=== PATIENT | female | born 1950 | race Caucasian/White ===

== ENCOUNTER 2018-12-04 14:07 | Inpatient (IN) ==
--- NOTE | 2018-12-04 14:53 | Emergency Department Note ---
Fall HPI - General Chief Complaint: Fall Stated Complaint: fall Time Seen by Provider: 12/04/18 14:27 Source: patient, family Mode of arrival: ambulatory Limitations: physical limitation - History of Present Illness HPI Narrative: 68-year-old female in ED via EMS. Patient had taken her dog outside, when the dog pulled her off the porch. Patient dropped 2 steps and fell to the ground, she does not know how she landed. Patient felt extreme pain in her left knee and 911 was called by the granddaughter. Patient states she can feel her left leg and can move her left foot and toes. Patient does wear compression stockings. Patient has health history of chronic back pain/knee pain she takes morphine, [place], methocarbamol for this. Patient also has congestive heart failure and is on Lasix and potassium. Patient has A. fib and treated with diltiazem and Xarellto. Patient also takes lisinopril. Patient did see her primary care today with concerns of constipation she currently takes 2 laxatives today and Metamucil was added to her regimen. 2 weeks ago patient was placed on nebulizer treatment twice a day along with steroid inhaler twice a day. Patient states this has improved her breathing and she has not used her albuterol inhaler since. Complaint: fall Onset (ago): hour(s) (1) Fall From: standing, down stairs (#) (2) Fall Witnessed: no Place Fall Occurred: home Loss of Consciousness: none Prolonged Down Time?: no Symptoms Prior to Fall: none Context: tripped/slipped Location of injury: other (left knee) Location of injury - extremities: Left: knee Severity: severe Severity scale (1-10): 10 Quality: dull, stabbing, aching Associated symptoms (after fall): Reports: denies - Related Data Home Medications Medication Instructions Recorded Confirmed Auto-Titrating CPAP MISCELLANE .COMPLEX 04/18/15 12/04/18 aspirin 81 mg tablet,delayed 81 mg PO QDAY tab 04/18/15 12/04/18 release hydrocodone 10 mg-acetaminophen See Dose Instructions PO .Q4-6H 04/18/15 12/04/18 325 mg tablet PRN tab morphine ER 100 mg 100 mg PO .COMPLEX cap 04/18/15 12/04/18 capsule,extended release pellets multivitamin tablet 1 tab PO .COMPLEX tab 04/18/15 12/04/18 potassium chloride ER 20 mEq 20 meq PO .COMPLEX tab 04/18/15 12/04/18 tablet,extended release rivaroxaban 20 mg tablet 20 mg PO .COMPLEX tab 04/18/15 12/04/18 Methocarbamol [Robaxin] 750 mg PO HSP 12/04/18 12/04/18 Previous Rx's Medication Instructions Recorded CUSTOM FIT COMPRESSION STOCKINGS #1 each 10/30/16 FULL SIZE EGG CRATE MATTRESS #1 each 10/30/16 diltiazem 60 mg tablet 60 mg PO QID 90 Days #360 tab 11/05/16 Foam Block #1 each 12/13/16 disposable gloves See Dose Instructions .ROUTE 07/28/17 .MEDSUPPLY #100 each lisinopril 2.5 mg tablet 2.5 mg PO BID #180 tab 03/23/18 furosemide 40 mg tablet 40 mg PO BID #180 tab 06/23/18 albuterol sulfate HFA 90 See Rx Instructions .ROUTE 10/23/18 mcg/actuation aerosol inhaler .COMPLEX #54 gram Spacer for ventolin inhaler #1 ea 11/02/18 fluticasone propionate 110 4 puff INHALATION BID #36 g 11/02/18 mcg/actuation HFA aerosol inhaler nebulizer accessories kit See Dose Instructions .ROUTE 11/03/18 .MEDSUPPLY #1 each nebulizers See Dose Instructions .ROUTE 11/03/18 .MEDSUPPLY #1 each ipratropium-albuterol 0.5 mg-3 3 ml INHALATION QID #180 ml 11/13/18 mg(2.5 mg base)/3 mL nebulization soln Allergies Allergy/AdvReac Type Severity Reaction Status Date / Time aspirin Allergy Unknown Unknown Verified 12/04/18 14:13 atenolol Allergy Unknown Unknown Verified 12/04/18 14:13 hydrochlorothiazide Allergy Unknown Dizziness Verified 12/04/18 14:13 ketorolac [From Toradol] Allergy Unknown Hives Verified 12/04/18 14:13 lorazepam Allergy Unknown Unknown Verified 12/04/18 14:13 NSAIDS (Non-Steroidal Allergy Unknown Unknown Verified 12/04/18 14:13 Anti-Inflamma propoxyphene Allergy Unknown Unknown Verified 12/04/18 14:13 Zolpidem [From Ambien] Allergy Unknown Unknown Verified 12/04/18 14:13 influenza virus vaccine, AdvReac Intermediate Other Verified 12/04/18 14:13 specific [Influenza Virus Vacc,Specific] ketorplac Allergy Unknown Unknown Uncoded 12/04/18 11:00 Review of Systems All systems ED: reviewed and negative except as stated. Fall PMH - Past Medical History [facility] Narrative: All Active Problems (Last Reviewed 11/02/18 @ 09:17 by Gypsy Restrepo DO) Asthma exacerbation (Acute) Viral syndrome (Acute) Valvular heart disease (Chronic) Chronic anticoagulation (Chronic) 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) Chronic low back pain (Chronic) History of tonsillectomy (Chronic) History of total splenectomy (Chronic) History of surgery (Chronic) History of laminectomy (Chronic) History of knee replacement procedure of right knee (Chronic) History of hysterectomy (Chronic) History of cholecystectomy (Chronic) History of cardiac catheterization (Chronic) History of back surgery (Chronic) Status post arthroscopic surgery of right knee (Chronic) History of appendectomy (Chronic) History of adenoidectomy (Chronic) Right bundle branch block (Chronic) Osteoarthrosis, localized, primary, involving lower leg (Chronic) Obstructive sleep apnea (Chronic 05/11/14) Obesity (Chronic) Non Hodgkin's lymphoma (Chronic) Myocardial infarction, old (Chronic) Malignant lymphoma (Chronic) Lymphedema (Chronic) Insomnia (Chronic) Hypertension, essential (Chronic) Hepatitis C, chronic (Chronic) Gout (Chronic) Gastroparesis (Chronic) Gastroesophageal reflux (Chronic) Edema (Chronic) Degenerative disc disease (Chronic) Coronary artery disease (Chronic) History of colonic polyps (Chronic) Chronic pain syndrome (Chronic) Atrial fibrillation (Chronic 01/24/14) Asthma (Chronic) Past Surgical History (Last Reviewed 09/14/18 @ 14:22 by Christiana Seaman PA-C) History of tonsillectomy (Chronic) History of total splenectomy (Chronic) History of surgery (Chronic) History of laminectomy (Chronic) History of knee replacement procedure of right knee (Chronic) History of cholecystectomy (Chronic) History of cardiac catheterization (Chronic) History of back surgery (Chronic) Status post arthroscopic surgery of right knee (Chronic) History of appendectomy (Chronic) History of adenoidectomy (Chronic) Family History (Last Reviewed 09/14/18 @ 14:22 by Christiana Seaman PA-C) Maternal Grandmother Coronary artery disease Hypertension Mother Coronary artery disease Pulmonary emphysema Family history of diabetes mellitus Family history of tuberculosis Sudden , Onset Age: 60 Tobacco abuse Mother Cardiac disease Medical history: Reports: asthma, atrial fibrillation, cancer (non-Hodgkin lymphoma), coronary artery disease (myocardial infarction 1999), GERD, hypertension, liver disease (epatitis C), osteoporosis, other (bstructive sleep apnea, chronic anticoagulation) - Social History smoking status: Never smoker Alcohol use: Reports: None Physical Exam Limitations: no limitations General appearance: alert, anxious, tearful Head: atraumatic, normocephalic, normal inspection Eye: Present: normal appearance, PERRL, EOMI. Absent: conjunctival injection ENT: normal oropharynx, mucous membranes moist, normal external ear exam Neck: Present: normal inspection. Absent: tenderness, lymphadenopathy Chest: Present: normal inspection, symmetric chest wall rise. Absent: tenderness Respiratory: Present: normal lung sounds bilaterally. Absent: respiratory distress, rales/crackles, wheezes Cardiovascular: Absent: systolic murmur, diastolic murmur Abdominal: Present: soft, hypoactive bowel sounds. Absent: distention, tenderness, guarding, rebound, rigidity Extremities: Present: pedal edema (Pt with conpression stockings on) Upper leg: Present: tenderness, swelling, ecchymosis (distal femur) Knee: Present: tenderness, other (unable to move knee with out excruciating pain). Absent: full ROM Gait: not tested/not observed Neurological: Present: alert, oriented X3 Psychiatric: Present: depressed, anxious, tearful Skin: Present: warm, dry, intact, normal color. Absent: cool, diaphoretic Course Vital Signs Temperature 97.3 F 12/04/18 14:08 Pulse Rate 89 12/04/18 14:08 Respiratory Rate 20 12/04/18 14:08 Blood Pressure 95/48 12/04/18 14:08 Pulse Oximetry (%) 90 12/04/18 14:08 Temperature 99.3 F H 12/04/18 21:54 Pulse Rate 97 H 12/04/18 21:54 Respiratory Rate 23 H 12/04/18 21:54 Blood Pressure 142/83 12/04/18 21:54 Pulse Oximetry (%) 93 12/04/18 21:54 Fall - [facility] Narrative Medical decision making narrative: Pt laying supine as position of comfort. This decreased her SPO2 88%, pt normally not on O2 at home. Consulted Dr. Vega who advised to hold Xarellto and he would do surgery tomorrow, requested hospitalist to admitting orders on patient. Patients last oral intake was at 1830 yesterday and last Xarellto was 1630 yesterday. admitted pt and surgery to occur at 1900 today. - Lab Data Result diagrams: 12/04/18 14:53 12/04/18 14:53 Lab Results 12/04/18 12/04/18 12/04/18 Range/Units 14:28 14:53 14:53 WBC 8.9 (4.5-11.0) K/mcL RBC 4.69 (4.00-5.20) M/mcL Hgb 14.3 (12.0-15.0) g/dL Hct 44.0 (36.0-48.0) % MCV 93.7 (80.0-100.0) fL MCH 30.5 (26.0-34.0) pg MCHC 32.5 (31.0-36.0) g/dL RDW 13.3 (11.5-14.5) % Plt Count 352 (140-440) K/mcL MPV 8.0 (7.4-10.4) fL Gran % 45.5 (38.0-78.0) % Lymph % (Auto) 35.6 (15.5-49.0) % [place] % (Auto) 15.4 H (1.0-12.0) % Eos % (Auto) 0.7 (0.0-7.0) % Baso % (Auto) 2.8 H (0.0-2.0) % Gran # 4.0 (1.8-8.0) K/mcL Lymph # (Auto) 3.2 (1.5-4.8) K/mcL [place] # (Auto) 1.4 H (0.1-0.9) K/mcL Eos # (Auto) 0.1 (0.0-0.7) K/mcL Baso # (Auto) 0.2 (0.0-0.3) K/mcL PT (11.9-14.5) sec INR (0.9-1.1) APTT (20-37) sec Sodium 136 (133-145) mmol/L Potassium 3.7 (3.3-5.1) mmol/L Chloride 91 L (96-108) mmol/L Carbon Dioxide 32 H (22-30) mmol/L Anion Gap 13.0 (8-16) BUN 6 L (8-23) mg/dl Creatinine 0.7 (0.6-1.1) mg/dl GFR Calculation 90 Glucose 111 H (70-105) mg/dL Calcium 9.1 (8.6-10.4) mg/dl Total Bilirubin 0.5 (0.0-1.0) mg/dL AST 32 (0-37) U/l ALT 18 (0-40) U/l Alkaline Phosphatase 86 (39-117) U/L NT-Pro-B Natriuret Pep 1483.0 H (0-125) pg/ml Total Protein 7.1 (5.9-8.4) gm/dL Albumin 4.0 (3.2-5.2) gm/dL Globulin 3.1 (2.2-3.7) gm/dL Albumin/Globulin Ratio 1.3 (1.0-2.3) 12/04/18 Range/Units 14:53 WBC (4.5-11.0) K/mcL RBC (4.00-5.20) M/mcL Hgb (12.0-15.0) g/dL Hct (36.0-48.0) % MCV (80.0-100.0) fL MCH (26.0-34.0) pg MCHC (31.0-36.0) g/dL RDW (11.5-14.5) % Plt Count (140-440) K/mcL MPV (7.4-10.4) fL Gran % (38.0-78.0) % Lymph % (Auto) (15.5-49.0) % [place] % (Auto) (1.0-12.0) % Eos % (Auto) (0.0-7.0) % Baso % (Auto) (0.0-2.0) % Gran # (1.8-8.0) K/mcL Lymph # (Auto) (1.5-4.8) K/mcL [place] # (Auto) (0.1-0.9) K/mcL Eos # (Auto) (0.0-0.7) K/mcL Baso # (Auto) (0.0-0.3) K/mcL PT 16.5 H (11.9-14.5) sec INR 1.3 H (0.9-1.1) APTT 35 (20-37) sec Sodium (133-145) mmol/L Potassium (3.3-5.1) mmol/L Chloride (96-108) mmol/L Carbon Dioxide (22-30) mmol/L Anion Gap (8-16) BUN (8-23) mg/dl Creatinine (0.6-1.1) mg/dl GFR Calculation Glucose (70-105) mg/dL Calcium (8.6-10.4) mg/dl Total Bilirubin (0.0-1.0) mg/dL AST (0-37) U/l ALT (0-40) U/l Alkaline Phosphatase (39-117) U/L NT-Pro-B Natriuret Pep (0-125) pg/ml Total Protein (5.9-8.4) gm/dL Albumin (3.2-5.2) gm/dL Globulin (2.2-3.7) gm/dL Albumin/Globulin Ratio (1.0-2.3) - Radiology Data Radiology results reviewed: Yes I reviewed the patient's radiology results. Left Knee XR: IMPRESSION: Severely comminuted and displaced oblique oriented fracture of the distal femoral diaphysis/metaphysis Disposition Pt seen by INTERNAL MEDICINE PHYSICIAN/PA only: No ([place]) Clinical Impression: Femur fracture, left Disposition: Xfer As Inpt ([facility]) Condition: Fair Time of Disposition: 22:04
[2018-12-04] MEDS: HYDROmorphone 2 MG/ML VIAL IV PRN ×4 (15:00→22:57)
[2018-12-04] MEDS ORDERED: HYDROmorphone 2 MG/ML VIAL IV SCH (15:15)
--- NOTE | 2018-12-04 15:17 | XRay Report ---
CLINICAL INFORMATION: pain after fall COMPARISON: None. FINDINGS: Severely comminuted, obliquely oriented fracture through the distal femoral diaphysis extending to the metaphysis is appreciated. The proximal fragment displaced one shaft width medially and anteriorly. Moderate soft tissue swelling noted. Moderate patellofemoral and tibiofemoral degenerative changes noted IMPRESSION: Severely comminuted and displaced oblique oriented fracture of the distal femoral diaphysis/metaphysis Interpreted and Authenticated by: Luis E Nayak 12/04/18
[2018-12-04 15:25] LABS: Basophils # (Auto) 0.2 K/mcL (0.0-0.3); Basophils % (Auto) 2.8 % (0.0-2.0); Eosinophils # (Auto) 0.1 K/mcL (0.0-0.7); Eosinophils % (Auto) 0.7 % (0.0-7.0); Granulocytes % (Auto) 45.5 % (38.0-78.0); Lymphocytes # (Auto) 3.2 K/mcL (1.5-4.8); Lymphocytes % (Auto) 35.6 % (15.5-49.0); Mean Cell Volume 93.7 fL (80.0-100.0); Mean Corpuscular HGB Conc 32.5 g/dL (31.0-36.0); Monocytes # (Auto) 1.4 K/mcL (0.1-0.9); Monocytes % (Auto) 15.4 % (1.0-12.0); Platelet Count 352 K/mcL (140-440); RBC 4.69 M/mcL (4.00-5.20); Red Cell Distribution Width 13.3 % (11.5-14.5)
--- NOTE | 2018-12-04 15:38 | XRay Report ---
CLINICAL INFORMATION: femur fracture COMPARISON: None. FINDINGS: The heart is moderately enlarged - increased from previous study. The mediastinum unremarkable. Pulmonary vessels are mildly distended but no definite edema. Right diaphragm is moderately elevated and small eventration left diaphragm are both stable. Mild atelectasis right base noted IMPRESSION: Mild CHF Moderate chronic elevation right diaphragm and mild chronic atelectasis in the overlying right lower lobe. Small eventration posterior left diaphragm - stable Interpreted and Authenticated by: Luis E Nayak 12/04/18
[2018-12-04 15:47] LABS: ALT/SGPT 18 U/l (0-40); Albumin/Globulin Ratio 1.3 (1.0-2.3); Alkaline Phosphatase 86 U/L (39-117); Blood Urea Nitrogen 6 mg/dl (8-23)
--- NOTE | 2018-12-04 16:00 | Emergency Department Note ---
Fall HPI - General Chief Complaint: Fall Stated Complaint: fall Time Seen by Provider: 12/04/18 14:27 Source: patient, family Mode of arrival: ambulatory - History of Present Illness Place Fall Occurred: home Context: tripped/slipped Associated symptoms (after fall): Reports: denies - Related Data Home Medications Medication Instructions Recorded Confirmed Auto-Titrating CPAP MISCELLANE .COMPLEX 04/18/15 12/04/18 aspirin 81 mg tablet,delayed 81 mg PO QDAY tab 04/18/15 12/04/18 release hydrocodone 10 mg-acetaminophen See Dose Instructions PO .Q4-6H 04/18/15 12/04/18 325 mg tablet PRN tab morphine ER 100 mg 100 mg PO .COMPLEX cap 04/18/15 12/04/18 capsule,extended release pellets multivitamin tablet 1 tab PO .COMPLEX tab 04/18/15 12/04/18 potassium chloride ER 20 mEq 20 meq PO .COMPLEX tab 04/18/15 12/04/18 tablet,extended release rivaroxaban 20 mg tablet 20 mg PO .COMPLEX tab 04/18/15 12/04/18 RX: Methocarbamol [Robaxin] 750 mg PO HSP 12/04/18 12/04/18 Previous Rx's Medication Instructions Recorded CUSTOM FIT COMPRESSION STOCKINGS #1 each 10/30/16 FULL SIZE EGG CRATE MATTRESS #1 each 10/30/16 diltiazem 60 mg tablet 60 mg PO QID 90 Days #360 tab 11/05/16 Foam Block #1 each 12/13/16 disposable gloves See Dose Instructions .ROUTE 07/28/17 .MEDSUPPLY #100 each lisinopril 2.5 mg tablet 2.5 mg PO BID #180 tab 03/23/18 furosemide 40 mg tablet 40 mg PO BID #180 tab 06/23/18 albuterol sulfate HFA 90 See Rx Instructions .ROUTE 10/23/18 mcg/actuation aerosol inhaler .COMPLEX #54 gram Spacer for ventolin inhaler #1 ea 11/02/18 fluticasone propionate 110 4 puff INHALATION BID #36 g 11/02/18 mcg/actuation HFA aerosol inhaler nebulizer accessories kit See Dose Instructions .ROUTE 11/03/18 .MEDSUPPLY #1 each nebulizers See Dose Instructions .ROUTE 11/03/18 .MEDSUPPLY #1 each ipratropium-albuterol 0.5 mg-3 3 ml INHALATION QID #180 ml 11/13/18 mg(2.5 mg base)/3 mL nebulization soln Allergies Allergy/AdvReac Type Severity Reaction Status Date / Time aspirin Allergy Unknown Unknown Verified 12/04/18 14:13 atenolol Allergy Unknown Unknown Verified 12/04/18 14:13 hydrochlorothiazide Allergy Unknown Dizziness Verified 12/04/18 14:13 ketorolac [From Toradol] Allergy Unknown Hives Verified 12/04/18 14:13 lorazepam Allergy Unknown Unknown Verified 12/04/18 14:13 NSAIDS (Non-Steroidal Allergy Unknown Unknown Verified 12/04/18 14:13 Anti-Inflamma propoxyphene Allergy Unknown Unknown Verified 12/04/18 14:13 Zolpidem [From Ambien] Allergy Unknown Unknown Verified 12/04/18 14:13 influenza virus vaccine, AdvReac Intermediate Other Verified 12/04/18 14:13 specific [Influenza Virus Vacc,Specific] ketorplac Allergy Unknown Unknown Uncoded 12/04/18 11:00 Fall PMH - Past Medical History Medical history: Reports: asthma, atrial fibrillation, cancer (non-Hodgkin lymphoma), coronary artery disease (myocardial infarction 1999), GERD, hypertension, liver disease (epatitis C), osteoporosis, other (bstructive sleep apnea, chronic anticoagulation) - Social History smoking status: Never smoker Alcohol use: Reports: None Physical Exam Limitations: physical limitation General appearance: alert, anxious, tearful Course Vital Signs Temperature 97.3 F 12/04/18 14:08 Pulse Rate 89 12/04/18 14:08 Respiratory Rate 20 12/04/18 14:08 Blood Pressure 95/48 12/04/18 14:08 Pulse Oximetry (%) 90 12/04/18 14:08 Temperature 97.1 F 12/08/18 03:35 Pulse Rate 96 H 12/08/18 03:35 Respiratory Rate 20 12/08/18 03:35 Blood Pressure 115/75 12/08/18 03:35 Pulse Oximetry (%) 96 12/08/18 03:35 Fall - Lab Data Result diagrams: 12/08/18 03:35 12/08/18 03:35 Lab Results 12/04/18 12/04/18 12/04/18 Range/Units 14:28 14:53 14:53 WBC 8.9 (4.5-11.0) K/mcL RBC 4.69 (4.00-5.20) M/mcL Hgb 14.3 (12.0-15.0) g/dL Hct 44.0 (36.0-48.0) % MCV 93.7 (80.0-100.0) fL MCH 30.5 (26.0-34.0) pg MCHC 32.5 (31.0-36.0) g/dL RDW 13.3 (11.5-14.5) % Plt Count 352 (140-440) K/mcL MPV 8.0 (7.4-10.4) fL Gran % 45.5 (38.0-78.0) % Lymph % (Auto) 35.6 (15.5-49.0) % [place] % (Auto) 15.4 H (1.0-12.0) % Eos % (Auto) 0.7 (0.0-7.0) % Baso % (Auto) 2.8 H (0.0-2.0) % Gran # 4.0 (1.8-8.0) K/mcL Lymph # (Auto) 3.2 (1.5-4.8) K/mcL [place] # (Auto) 1.4 H (0.1-0.9) K/mcL Eos # (Auto) 0.1 (0.0-0.7) K/mcL Baso # (Auto) 0.2 (0.0-0.3) K/mcL PT (11.9-14.5) sec INR (0.9-1.1) APTT (20-37) sec Sodium 136 (133-145) mmol/L Potassium 3.7 (3.3-5.1) mmol/L Chloride 91 L (96-108) mmol/L Carbon Dioxide 32 H (22-30) mmol/L Anion Gap 13.0 (8-16) BUN 6 L (8-23) mg/dl Creatinine 0.7 (0.6-1.1) mg/dl GFR Calculation 90 Glucose 111 H (70-105) mg/dL Calcium 9.1 (8.6-10.4) mg/dl Total Bilirubin 0.5 (0.0-1.0) mg/dL AST 32 (0-37) U/l ALT 18 (0-40) U/l Alkaline Phosphatase 86 (39-117) U/L NT-Pro-B Natriuret Pep 1483.0 H (0-125) pg/ml Total Protein 7.1 (5.9-8.4) gm/dL Albumin 4.0 (3.2-5.2) gm/dL Globulin 3.1 (2.2-3.7) gm/dL Albumin/Globulin Ratio 1.3 (1.0-2.3) 12/04/18 Range/Units 14:53 WBC (4.5-11.0) K/mcL RBC (4.00-5.20) M/mcL Hgb (12.0-15.0) g/dL Hct (36.0-48.0) % MCV (80.0-100.0) fL MCH (26.0-34.0) pg MCHC (31.0-36.0) g/dL RDW (11.5-14.5) % Plt Count (140-440) K/mcL MPV (7.4-10.4) fL Gran % (38.0-78.0) % Lymph % (Auto) (15.5-49.0) % [place] % (Auto) (1.0-12.0) % Eos % (Auto) (0.0-7.0) % Baso % (Auto) (0.0-2.0) % Gran # (1.8-8.0) K/mcL Lymph # (Auto) (1.5-4.8) K/mcL [place] # (Auto) (0.1-0.9) K/mcL Eos # (Auto) (0.0-0.7) K/mcL Baso # (Auto) (0.0-0.3) K/mcL PT 16.5 H (11.9-14.5) sec INR 1.3 H (0.9-1.1) APTT 35 (20-37) sec Sodium (133-145) mmol/L Potassium (3.3-5.1) mmol/L Chloride (96-108) mmol/L Carbon Dioxide (22-30) mmol/L Anion Gap (8-16) BUN (8-23) mg/dl Creatinine (0.6-1.1) mg/dl GFR Calculation Glucose (70-105) mg/dL Calcium (8.6-10.4) mg/dl Total Bilirubin (0.0-1.0) mg/dL AST (0-37) U/l ALT (0-40) U/l Alkaline Phosphatase (39-117) U/L NT-Pro-B Natriuret Pep (0-125) pg/ml Total Protein (5.9-8.4) gm/dL Albumin (3.2-5.2) gm/dL Globulin (2.2-3.7) gm/dL Albumin/Globulin Ratio (1.0-2.3) Disposition Pt seen by FOCUSED FACTORY MANAGER/PA only: No Clinical Impression: Femur fracture, left Disposition: Xfer As Inpt ([facility]) Condition: Fair
[2018-12-04] MEDS ORDERED: METHOCARBAMOL 1,000 MG/10 ML VIAL IV ONE (16:07)
[2018-12-04] MEDS ORDERED: fentaNYL 100 MCG/2 ML VIAL IV ONE ×2 (16:18→19:00)
--- NOTE | 2018-12-04 17:05 | Internal Med History&Physical ---
Medical - H&P: [facility] Patient information: Note initiated : 12/04/18 at 5:01 pm Service Date, if different from initiated Date: [] Patient: Jennie Smith a 68 y/o F admitted on for fall. Chief Complaint: [] History of present illness: Ms. Smith is a 68 year old F Who got tangled up in the dog leash tripped down several steps falling onto her left leg. She did not hit her head. She had immediate pain to the leg. Nitro was called and brought her into the ER. Patient has a significant medical history including morbid obesity CHF which appears to be diastolic per history COPD chronic pain hypertension obstructive sleep apnea. Past several months she has been dealing with respiratory issues including pneumonia followed up with the upper respiratory tract infection and that she has sinusitis she recently started on nebulizer which improved her respiratory symptoms and she has not needed her albuterol since then. She is overall been feeling improved and recovering from her recent respiratory illness. she does have a a residual cough which is improving and is dry at this point. She does have some shortness of breath at baseline. She has chronic lymphedema and uses Lasix. 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 She is at increased risk perioperatively but she understands this, including risk of . However, a nonsurgical approach would be quite debilitating and would be worse off her. Review of Systems: Pertinent positives as above. Denies headache/fever/chills/nausea/ vomiting/chest or abdominal pain/diarrhea. Remaining 10 point review of systems reviewed negative Medical - H&P: PM Medical history: Medical History (Last Reviewed 11/02/18 @ 09:17 by Gypsy Restrepo DO) Valvular heart disease (Chronic) History of congestive heart failure, appears to be diastolic per old notes and the fact that she is on diltiazem A fibrillation on diltiazem and Xarelto: Follows with Dr. Daley COPD/asthma on inhalers Chronic pain low back and knee GERD Hypertension History of hepatitis C for blood transfusion decades ago Morbid obesity with lymphedema History of non-Hodgkin's a former BRYAN on CPAP Past Surgical History (Last Reviewed 09/14/18 @ 14:22 by Chirstiana Seaman PA-C) History of tonsillectomy (Chronic) History of total splenectomy (Chronic) History of surgery (Chronic) History of laminectomy (Chronic) History of knee replacement procedure of right knee (Chronic) History of cholecystectomy (Chronic) History of cardiac catheterization (Chronic) History of back surgery (Chronic) Status post arthroscopic surgery of right knee (Chronic) History of appendectomy (Chronic) History of adenoidectomy (Chronic) Family History (Last Reviewed 09/14/18 @ 14:22 by Christiana Seaman PA-C) Maternal Grandmother Coronary artery disease Hypertension Mother Coronary artery disease Pulmonary emphysema Family history of diabetes mellitus Family history of tuberculosis Sudden , Onset Age: 60 Tobacco abuse Mother Cardiac disease Social History (Last Reviewed 12/04/18 @ 11:01 by Christine Day CMA) Denies smoking or history but was exposed to secondhand smoke for 35 years from her Denies alcohol use He is a walking stick sometimes Lives by herself Medical - H&P: Meds Home Medications Medication Instructions Recorded Confirmed Type Auto-Titrating CPAP MISCELLANE .COMPLEX 04/18/15 12/04/18 History aspirin 81 mg tablet,delayed 81 mg PO QDAY tab 04/18/15 12/04/18 History release hydrocodone 10 mg-acetaminophen See Dose Instructions PO .Q4-6H 04/18/15 0 12/04/18 History 325 mg tablet PRN tab morphine ER 100 mg 100 mg PO .COMPLEX cap 04/18/15 12/04/18 History capsule,extended release pellets multivitamin tablet 1 tab PO .COMPLEX tab 04/18/15 12/04/18 History potassium chloride ER 20 mEq 20 meq PO .COMPLEX tab 04/18/15 12/04/18 History tablet,extended release rivaroxaban 20 mg tablet 20 mg PO .COMPLEX tab 04/18/15 12/04/18 History CUSTOM FIT COMPRESSION STOCKINGS #1 each 10/30/16 12/04/18 Rx FULL SIZE EGG CRATE MATTRESS #1 each 10/30/16 12/04/18 Rx diltiazem 60 mg tablet 60 mg PO QID 90 Days #360 tab 11/05/16 12/04/18 Rx Foam Block #1 each 12/13/16 12/04/18 Rx disposable gloves See Dose Instructions .ROUTE 07/28/17 12/04/18 Rx .MEDSUPPLY #100 each lisinopril 2.5 mg tablet 2.5 mg PO BID #180 tab 03/23/18 12/04/18 Rx furosemide 40 mg tablet 40 mg PO BID #180 tab 06/23/18 12/04/18 Rx albuterol sulfate HFA 90 See Rx Instructions .ROUTE 10/23/18 12/04/18 Rx mcg/actuation aerosol inhaler .COMPLEX #54 gram Spacer for ventolin inhaler #1 ea 11/02/18 12/04/18 Rx fluticasone propionate 110 4 puff INHALATION BID #36 g 11/02/18 12/04/18 Rx mcg/actuation HFA aerosol inhaler nebulizer accessories kit See Dose Instructions .ROUTE 11/03/18 12/04/18 Rx .MEDSUPPLY #1 each nebulizers See Dose Instructions .ROUTE 11/03/18 12/04/18 Rx .MEDSUPPLY #1 each ipratropium-albuterol 0.5 mg-3 3 ml INHALATION QID #180 ml 11/13/18 12/04/18 Rx mg(2.5 mg base)/3 mL nebulization soln Methocarbamol [Robaxin] 750 mg PO HSP 12/04/18 12/04/18 History Allergies Allergy/AdvReac Type Severity Reaction Status Date / Time aspirin Allergy Unknown Unknown Verified 12/04/18 14:13 atenolol Allergy Unknown Unknown Verified 12/04/18 14:13 hydrochlorothiazide Allergy Unknown Dizziness Verified 12/04/18 14:13 ketorolac [From Toradol] Allergy Unknown Hives Verified 12/04/18 14:13 lorazepam Allergy Unknown Unknown Verified 12/04/18 14:13 NSAIDS (Non-Steroidal Allergy Unknown Unknown Verified 12/04/18 14:13 Anti-Inflamma propoxyphene Allergy Unknown Unknown Verified 12/04/18 14:13 Zolpidem [From Ambien] Allergy Unknown Unknown Verified 12/04/18 14:13 influenza virus vaccine, AdvReac Intermediate Other Verified 12/04/18 14:13 specific [Influenza Virus Vacc,Specific] ketorplac Allergy Unknown Unknown Uncoded 12/04/18 11:00 Medical - H&P: Exam - Constitutional Vitals: Temp Pulse Resp BP Pulse Ox 97.3 F 89 20 105/71 93 12/04/18 14:08 12/04/18 14:08 12/04/18 14:23 12/04/18 16:51 12/04/18 16:51 Exam: general: Alert, Awake, distressed some pain Eyes/N/T: EOMI, PEERL, Head/Neck: neck supple, normocephalic atraumatic CV: Irregular, 2/6SM, Pulm: Clear b/l, no wheezing/rhonchi/rales Abd: soft, nontender, +BS x4 Ext: no clubbing/cyanosis, chronic lymphedema bilaterally Neuro: Alert, no focal deficits, CN 2-12 grossly intact, sensations in touch bilateral lower extremities, 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 Skin: warm/dry Medical - H&P: Reslt - Labs CBC & Chem 7: 12/04/18 14:53 12/04/18 14:53 Labs: Short CBC 12/04/18 Range/Units 14:53 WBC 8.9 (4.5-11.0) K/mcL Hgb 14.3 (12.0-15.0) g/dL Hct 44.0 (36.0-48.0) % Plt Count 352 (140-440) K/mcL BMP 12/04/18 14:53 Sodium 136 Potassium 3.7 Chloride 91 L Carbon Dioxide 32 H BUN 6 L Creatinine 0.7 Glucose 111 H Calcium 9.1 Liver Function 12/04/18 Range/Units 14:53 Total Bilirubin 0.5 (0.0-1.0) mg/dL AST 32 (0-37) U/l ALT 18 (0-40) U/l Alkaline Phosphatase 86 (39-117) U/L Albumin 4.0 (3.2-5.2) gm/dL - Impressions Distal femur fracture comminuted and displaced Chest x-ray similar to previous, pulmonary vasculature prominent Medical - H&P: A/P - Narrative A/P Narrative: A: *Left distal femur fracture: *History of A. fib: On diltiazem and Xarelto, follows Dr. Daley *History of CHF, appears to be diastolic per old notes and the fact that she is on diltiazem *Morbid obesity *COPD/asthma: On inhalers not on home oxygen *BRYAN on CPAP: *Chronic pain, back and knees: Follows with Dr. wyatt *GERD: *HTN: * * P: -Patient is at increased perioperative risk given her comorbidities, patient understands risks; and alternative would certainly be worse off -Monitor I's and O's and daily weights -Continue home cardiac meds, except for hold Xarelto -Restart Xarelto when okay by orthopedic surgery -Pain management with home regimen and as needed IV - -IS, prn nebs -pt/ot -ppx: SCD, restart Xarelto when okay with surgery/Pepcid
[2018-12-04] MEDS ORDERED: MAGNESIUM SULFATE 2 GM/50 ML BAG IV ONE (17:45)
[2018-12-04] MEDS ORDERED: PROMETHAZINE 25 MG TABLET PO PRN (18:02)
[2018-12-04] MEDS ORDERED: POTASSIUM CHLORIDE 40 MEQ in DEXTROSE 5% IN WATER 500 ML IV PRN (18:02)
[2018-12-04] MEDS ORDERED: MAGNESIUM SULFATE 2 GM/50 ML BAG IV PRN (18:02)
[2018-12-04] MEDS ORDERED: ONDANSETRON 4 MG ODT TABLET SL PRN (18:02)
[2018-12-04] MEDS ORDERED: POTASSIUM CHLORIDE 20 MEQ TABLET PO PRN ×2 (18:02)
[2018-12-04] MEDS ORDERED: ONDANSETRON 4 MG/2 ML VIAL IV PRN ×2 (18:02→20:19)
[2018-12-04] MEDS ORDERED: PROCHLORPERAZINE 10 MG/2 ML VIAL IV PRN (18:02)
[2018-12-04] MEDS ORDERED: ACETAMINOPHEN 325 MG TABLET PO PRN (18:02)
[2018-12-04] MEDS ORDERED: HYDROmorphone 2 MG/ML VIAL ONE (18:07)
[2018-12-04] MEDS ORDERED: IPRATROPIUM/ALBUTEROL 3 ML AMPUL.NEB NEB ONE (18:45)
[2018-12-04] MEDS ORDERED: ceFAZolin 1 GM VIAL ONE (18:49)
[2018-12-04] MEDS ORDERED: PROPOFOL 200 MG/20 ML VIAL IV ONE (19:00)
[2018-12-04] MEDS ORDERED: LIDOCAINE HCL/PF 100 MG/5 ML SYRINGE IV ONE (19:00)
[2018-12-04] MEDS ORDERED: TRANEXAMIC ACID 1,000 MG/10 ML VIAL IV ONE (19:00)
[2018-12-04] MEDS ORDERED: HYDROmorphone 2 MG/ML VIAL IV ONE (19:00)
[2018-12-04] MEDS ORDERED: PHENYLEPHRINE 10 MG/ML VIAL IV ONE (19:00)
[2018-12-04] MEDS ORDERED: KETAMINE 100 MG/ML ML IV ONE (19:00)
[2018-12-04] MEDS ORDERED: MIDAZOLAM 5 MG/5 ML VIAL IV ONE (19:00)
[2018-12-04] MEDS ORDERED: SUCCINYLCHOLINE 20 MG/ML ML IV ONE (19:00)
[2018-12-04] MEDS ORDERED: FLUMAZENIL 0.1 MG/ML ML IV PRN (20:19)
[2018-12-04] MEDS ORDERED: ATROPINE SULFATE 0.4 MG/ML VIAL IV PRN (20:19)
[2018-12-04] MEDS ORDERED: MEPERIDINE 25 MG/ML SYRINGE IV PRN (20:19)
[2018-12-04] MEDS ORDERED: fentaNYL 100 MCG/2 ML VIAL IV PRN (20:19)
[2018-12-04] MEDS ORDERED: NALOXONE HCL 0.4 MG/ML VIAL IV PRN (20:19)
[2018-12-04] MEDS ORDERED: diphenhydrAMINE 50 MG/ML VIAL IV PRN (20:19)
[2018-12-04] MEDS ORDERED: ePHEDrine 50 MG/ML AMPUL IV PRN (20:19)
[2018-12-04] MEDS ORDERED: ACETAMINOPHEN 1,000 MG/100 ML BOTTLE IV ONE (20:19)
[2018-12-04] MEDS ORDERED: IPRATROPIUM/ALBUTEROL 3 ML AMPUL.NEB NEB PRN (20:19)
[2018-12-04] MEDS ORDERED: LACTATED RINGERS 1,000 ML IV SCH (20:30)
--- NOTE | 2018-12-04 20:46 | Brief Operative Note ---
Date of procedure: 12/04/18 Pre-op diagnosis: Comminuted Left supracondylar distal femur fracture, closed Post-op diagnosis: same Procedure: Open treatment with intramedullary rodding of Left supracondylar femur fracture, closed Grafts/Implants: Yes (Jt supracondylar nail, 320mm x 12mm) Anesthesia: GETA Findings: morbid obesity Complications: none Surgeon: Rocael Vega Administrative Support Clerk: Fausto Licona Estimated blood loss (cc): 250 Specimens Removed/Pathology: none sent Condition: other (fair) Disposition: ICU
[2018-12-04] MEDS ORDERED: METOPROLOL TARTRATE 5 MG/5 ML VIAL IV PRN (21:32)
[2018-12-04] MEDS ORDERED: METOPROLOL TARTRATE 5 MG/5 ML VIAL IV ONE (21:34)
[2018-12-04] MEDS: METOPROLOL TARTRATE 5 MG/5 ML VIAL IV PRN ×2 (21:36→21:42)
[2018-12-04] MEDS: morphine 30 MG TAB.SR.12H PO SCH (22:56)
[2018-12-04] MEDS: FUROSEMIDE 40 MG TABLET PO SCH (22:56)
[2018-12-04] MEDS: DILTIAZEM 30 MG TABLET PO SCH (22:58)
[2018-12-04] MEDS: FAMOTIDINE 20 MG TABLET PO SCH (22:58)
[2018-12-04] MEDS: HYDROcodone/APAP 10/325MG TABLET PO PRN (22:58)
[2018-12-04] MEDS: DOCUSATE SODIUM 100 MG CAPSULE PO SCH (22:58)
[2018-12-04] MEDS: FLUTICASONE HFA 110MCG INHALER INH SCH (22:59)
[2018-12-04] MEDS: 0.9 % SODIUM CHLORIDE 10 ML SYRINGE IV SCH (22:59)
[2018-12-04] MEDS: METHOCARBAMOL 750 MG TABLET PO SCH (23:02)
[2018-12-05] MEDS ORDERED: HYDROmorphone PCA 30 MG/30 ML PCA.VIAL IV PRN (00:36)
[2018-12-05] MEDS ORDERED: fentaNYL 100 MCG/2 ML VIAL IV ONE ×4 (00:42→06:25)
[2018-12-05] MEDS ORDERED: DEXMEDETOMIDINE HCL 400 MCG/100 ML BAG IV SCH (00:45)
[2018-12-05] MEDS: HYDROcodone/APAP 10/325MG TABLET PO PRN ×3 (03:22→19:38)
[2018-12-05] MEDS: fentaNYL 100 MCG/2 ML VIAL IV PRN ×7 (03:22→23:15)
[2018-12-05] MEDS: ceFAZolin 1 GM VIAL IV SCH ×2 (03:23→12:01)
--- NOTE | 2018-12-05 04:41 | XRay Report ---
CLINICAL INFORMATION: orif left femur COMPARISON: None. FINDINGS: Digital images from the OR show obliquely oriented moderately comminuted fracture of the distal femoral diaphysis to be reduced two near anatomic alignment and now transfixed by IM brendan and interlocking screws. IMPRESSION: ORIF distal femoral fracture in near-anatomic alignment Interpreted and Authenticated by: Luis E Nayak 12/05/18
[2018-12-05] MEDS: 0.9 % SODIUM CHLORIDE 10 ML SYRINGE IV SCH ×3 (05:56→21:46)
[2018-12-05 06:43] LABS: Basophils # (Auto) 0 K/mcL (0.0-0.3); Basophils % (Auto) 0.1 % (0.0-2.0); Eosinophils # (Auto) 0 K/mcL (0.0-0.7); Eosinophils % (Auto) 0 % (0.0-7.0); Granulocytes % (Auto) 91.1 % (38.0-78.0); Lymphocytes # (Auto) 0.8 K/mcL (1.5-4.8); Lymphocytes % (Auto) 7.4 % (15.5-49.0); Mean Cell Volume 95.5 fL (80.0-100.0); Mean Corpuscular HGB Conc 32.4 g/dL (31.0-36.0); Monocytes # (Auto) 0.2 K/mcL (0.1-0.9); Monocytes % (Auto) 1.4 % (1.0-12.0); Platelet Count 329 K/mcL (140-440); Red Cell Distribution Width 13.4 % (11.5-14.5)
[2018-12-05 07:10] LABS: ALT/SGPT 21 U/l (0-40); Albumin 3.4 gm/dL (3.2-5.2); Albumin/Globulin Ratio 1.3 (1.0-2.3); Alkaline Phosphatase 73 U/L (39-117); Bilirubin,Direct < 0.2 mg/dL (0.0-0.3); Blood Urea Nitrogen 5 mg/dl (8-23); Gamma Glutamyl Transpeptidase 43 U/L (5-36); Uric Acid 6.7 mg/dL (2.5-8.0)
[2018-12-05] MEDS: DILTIAZEM 30 MG TABLET PO SCH ×4 (07:36→21:45)
--- NOTE | 2018-12-05 08:02 | Internal Med Progress Note ---
Medical - PN: Subj Patient information: Note initiated : 12/05/18 at 7:58 am Service Date, if different from initiated Date: [] Patient: Jennie Smith a 68 y/o F admitted on 12/04/18 for fall. Chief Complaint: [] Interval history: Ms. Smith is a 68 year old F Who got tangled up in the dog leash tripped down several steps falling onto her left leg. She did not hit her head. She had immediate pain to the leg. Nitro was called and brought her into the ER. Patient has a significant medical history including morbid obesity CHF which appears to be diastolic per history COPD chronic pain hypertension obstructive s leep apnea. Past several months she has been dealing with respiratory issues including pneumonia followed up with the upper respiratory tract infection and that she has sinusitis she recently started on nebulizer which improved her respiratory symptoms and she has not needed her albuterol since then. She is overall been feeling improved and recovering from her recent respiratory illness. she does have a a residual cough which is improving and is dry at this point. She does have some shortness of breath at baseline. She has chronic lymphedema and uses Lasix. 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 She is at increased risk perioperatively but she understands this, including risk of . However, a nonsurgical approach would be quite debilitating and would be worse off her. 12/05 Difficult to control pain last night. 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 Eventually went to fentanyl which improved her pain. Patient has a high pain tolerance takes significant amount of narcotics at home. There is more comfortable this morning. Review of Systems: denies headache/fever/chills/nausea/vomiting/chest or abdominal pain/cough/dyspnea/diarrhea. Otherwise see above. - Constitutional Vitals: Vital Signs Temp Pulse Resp BP Pulse Ox 97.8 F 100 H 20 142/78 92 12/05/18 06:02 12/05/18 04:01 12/05/18 06:02 12/05/18 06:02 12/05/18 07:34 Period Temp Pulse Resp BP Sys/Aguirre Pulse Ox Last 24 Hr 97.3 F-99.3 F 59-137 14-24 95-152/48-113 85-97 Intake and Output 12/04/18 12/05/18 12/05/18 21:59 05:59 13:59 Intake Total 1400 820 Output Total 500 1000 Balance 900 -180 Weight 126.507 kg 124.511 kg Intake & Output: Intake & Output 12/04/18 12/05/18 12/05/18 21:59 05:59 13:59 Intake Total 1400 820 Output Total 500 1000 Balance 900 -180 Weight 126.507 kg 124.511 kg Intake: IV 1400 100 Lactated Ringers 1,000 ml @ 20 1400 mls/hr IV .Q24H [facility] Rx#: [id number] Oral 720 Output: Urine Catheter Amount 500 1000 Other: Urine Appearance Clear Clear Uretheral ([place]) Clear Cloudy Urine Color Straw Bright Yellow Uretheral ([place]) Pale Light Christiana Urine Odor Strong Exam: general: Alert, Awake, obese, no acute distress Eyes/N/T: EOMI, Head/Neck: neck supple CV: Irregular, 2/6SM, Pulm: Clear b/l, no wheezing/rhonchi/rales Abd: soft, nontender, +BS x4 Ext: no clubbing/cyanosis, chronic lymphedema bilaterally, left leg dressings in place Neuro: Alert, no focal deficits, Skin: warm/dry Medical - PN: Obj Da - Labs CBC & Chem 7: 12/05/18 03:40 12/05/18 03:40 Labs: Abnormal Lab Results 12/05/18 12/05/18 12/04/18 03:40 03:40 14:53 WBC 11.4 H Gran % 91.1 H Lymph % (Auto) 7.4 L [place] % (Auto) Baso % (Auto) Gran # 10.4 H Lymph # (Auto) 0.8 L [place] # (Auto) PT 16.5 H INR 1.3 H Chloride 91 L Carbon Dioxide 33 H BUN 5 L Glucose 165 H Calcium 8.3 L GGT 43 H NT-Pro-B Natriuret Pep 12/04/18 12/04/18 12/04/18 14:53 14:53 14:28 WBC Gran % Lymph % (Auto) [place] % (Auto) 15.4 H Baso % (Auto) 2.8 H Gran # Lymph # (Auto) [place] # (Auto) 1.4 H PT INR Chloride 91 L Carbon Dioxide 32 H BUN 6 L Glucose 111 H Calcium GGT NT-Pro-B Natriuret Pep 1483.0 H Meds: Medications Acetaminophen (Tylenol) 650 mg PO Q6HP PRN PRN Reason: PAIN/FEVER > 101 Hydrocodone Bitart/Acetaminophen ([place] 10/325mg) 1 - 2 tab PO Q4-6HP PRN PRN Reason: Pain Last Admin: 12/05/18 03:22 Dose: 2 tab Documented by: Albuterol/Ipratropium (Duoneb) 3 ml NEB Q4HP PRN PRN Reason: Shortness Of Breath Cefazolin Sodium (Ancef) 2 gm IV Q8H [facility] Stop: 12/05/18 11:31 Last Admin: 12/05/18 03:23 Dose: 2 gm Documented by: Diltiazem HCl (Cardizem) 60 mg PO ACHS [facility] Last Admin: 12/05/18 07:36 Dose: 60 mg Documented by: Docusate Sodium (Colace) 100 mg PO BID [facility] Last Admin: 12/04/18 22:58 Dose: 100 mg Documented by: Famotidine (Pepcid) 20 mg PO BID [facility] Last Admin: 12/04/18 22:58 Dose: 20 mg Documented by: Fentanyl (Sublimaze) 25 - 50 mcg IV Q1HP PRN PRN Reason: PAIN LEVEL > 6 Last Admin: 12/05/18 07:35 Dose: 50 mcg Documented by: Fluticasone Propionate (Flovent Hfa 110mcg) 4 puff INH BID [facility] Last Admin: 12/04/18 22:59 Dose: Not Given Documented by: Furosemide (Lasix) 40 mg PO BID [facility] Last Admin: 12/04/18 22:56 Dose: 40 mg Documented by: Hydromorphone HCl (Dilaudid) 0 mg IV Q2HP PRN PRN Reason: Pain Last Admin: 12/04/18 22:57 Dose: 0.5 mg Documented by: Hydromorphone HCl (Dilaudid Clutch Specialist) 30 mg IV UD PRN; Protocol PRN Reason: Pain Potassium Chloride 40 meq/ (Dextrose) 520 mls @ 130 mls/hr IV ONCE PRN PRN Reason: Potassium < 3 Magnesium Sulfate (Magnesium Sulfate) 2 gm in 50 mls @ 50 mls/hr IV ONCE PRN PRN Reason: Magnesium </= 1.6 Dexmedetomidine HCl (Precedex 400 Mcg/100 Ml Dextrose) 400 mcg in 100 mls @ 6.325 mls/hr IV .[id number] [facility]; Protocol Last Admin: 12/05/18 01:43 Dose: Not Given Documented by: Lactulose (Cephulac) 10 gm PO DAILYP PRN PRN Reason: Constipation Methocarbamol (Robaxin) 750 mg PO HSP [facility] Last Admin: 12/04/18 23:02 Dose: 750 mg Documented by: Metoprolol Tartrate (Lopressor) 5 mg IV Q2HP PRN PRN Reason: Tachyarrhythmias HR>110 Morphine Sulfate (Ms Contin) 90 mg PO BID [facility] Last Admin: 12/04/18 22:56 Dose: 90 mg Documented by: Morphine Sulfate (Ms Contin) 60 mg PO DAILY@1200 [place] Non-Formulary Medication (Aspirin [Adult Low Dose Aspirin Ec]) 81 mg PO QDAY [facility] Ondansetron HCl (Zofran) 4 mg IV Q4HP PRN PRN Reason: Nausea And Vomiting Last Admin: 12/04/18 22:57 Dose: 4 mg Documented by: Ondansetron HCl (Zofran Odt) 4 mg SL Q4HP PRN PRN Reason: Nausea And Vomiting Polyethylene Glycol (Miralax) 17 gm PO DAILYP PRN PRN Reason: Constipation Potassium Chloride (Kdur) 20 meq PO BIDCC [facility] Potassium Chloride (Kdur) 40 meq PO ONCE PRN PRN Reason: Potssium is 3-3.5 Potassium Chloride (Kdur) 40 meq PO ONCE PRN PRN Reason: Potassium < 3 Prochlorperazine (Compazine) 10 mg IV Q6HP PRN PRN Reason: Nausea And Vomiting Promethazine HCl (Phenergan) 0 mg PO Q6HP PRN PRN Reason: Nausea And Vomiting Senna (Senokot) 2 tab PO HSP PRN PRN Reason: Constipation Sodium Chloride (Saline Flush) 10 ml IV Q8 [facility] Last Admin: 12/05/18 05:56 Dose: 10 ml Documented by: Medical - PN: A/P - Time Spent With Patient Total time spent is greater than 50% in coordination of care (as documented) at patient's floor/unit and/or counseling patient: - Narrative A/P Narrative: A: *Left distal femur fracture: s/p ORIF (12/04) *History of A. fib: On diltiazem and Xarelto, follows Dr. Daley *History of CHF, appears to be diastolic per old notes and the fact that she is on diltiazem *Morbid obesity: *COPD/asthma: On inhalers not on home oxygen *BRYAN on CPAP: *Chronic pain, back and knees on heavy dose of narc: Follows with Dr. herron *GERD: *HTN: * P: -Patient at increased perioperative risk given her comorbidities, patient understands risks -Monitor I's and O's and daily weights -Continue home cardiac meds, except for hold Xarelto -Restart Xarelto when okay by orthopedic surgery -Pain management with home regimen and as needed IV - -IS, prn nebs -pt/ot -ppx: SCD, restart Xarelto when okay with surgery/Pepcid Medical - PN: Qual - VTE Deep Vein Thrombosis/Pulmonary Embolism Present on Admission: No
[2018-12-05] MEDS: POTASSIUM CHLORIDE 20 MEQ TABLET PO SCH ×2 (08:18→17:11)
[2018-12-05] MEDS: DOCUSATE SODIUM 100 MG CAPSULE PO SCH ×2 (08:18→21:45)
[2018-12-05] MEDS: morphine 30 MG TAB.SR.12H PO SCH ×3 (08:18→21:44)
[2018-12-05] MEDS: FLUTICASONE HFA 110MCG INHALER INH SCH ×2 (08:19→21:47)
[2018-12-05] MEDS: FAMOTIDINE 20 MG TABLET PO SCH ×2 (08:19→21:45)
[2018-12-05] MEDS: FUROSEMIDE 40 MG TABLET PO SCH ×2 (08:19→21:45)
--- NOTE | 2018-12-05 08:27 | Emergency Department Note ---
ED Note Addendum Note Addendum: Agree with diagnosis and treatment and need for admission
[2018-12-05] MEDS ORDERED: NON FORMULARY MEDICATION 1 DOSE MISCELL (Aspirin [Adult Low Dose Aspirin Ec] 81 MG) PO SCH (09:00)
--- NOTE | 2018-12-05 09:57 | Orthopedic Progress Note ---
Orthopedics - Auxillary Note - Subjective Patient Information: Note initiated : 12/05/18 at 9:56 am Service Date, if different from initiated Date: [] Patient: Jennie Smith 68 y/o F admitted on 12/04/18 for fall. Chief Complaint: Moderate to intense pain. bandages c/d/i nvi-distal Vital Signs Temp Pulse Pulse Resp BP BP Pulse Ox 12/05/18 09:06 83 21 93 12/05/18 08:01 96 H 22 108/72 91 12/05/18 07:46 95 H 21 113/64 96 12/05/18 07:34 92 12/05/18 06:02 97.8 F 20 142/78 91 12/05/18 04:01 98.8 F 100 H 15 112/82 90 12/05/18 03:43 97.5 F 12/05/18 03:02 59 L 21 112/95 85 L 12/05/18 02:31 104 H 16 119/87 96 12/05/18 02:01 89 20 116/79 92 12/05/18 01:31 88 16 100/73 93 12/05/18 01:01 118 H 14 109/76 12/05/18 00:50 94 H 18 107/74 95 12/05/18 00:18 123 H 21 100/63 90 12/05/18 00:07 115 H 16 97 12/05/18 00:04 115 H 16 97 12/05/18 00:01 122 H 17 127/89 97 12/04/18 23:46 131 H 16 110/97 92 12/04/18 23:36 17 125/98 12/04/18 23:16 21 123/94 12/04/18 23:01 22 128/78 12/04/18 22:47 98 H 19 96/84 90 12/04/18 22:31 125 H 24 H 142/113 92 12/04/18 22:30 96 12/04/18 22:21 98.8 F 102 H 24 H 146/97 92 12/04/18 21:54 99.3 F H 97 H 23 H 142/83 93 12/04/18 21:45 98.6 F 95 H 21 144/84 90 12/04/18 21:40 98.6 F 109 H 24 H 141/91 90 12/04/18 21:35 98.6 F 105 H 22 129/80 91 12/04/18 21:30 98.6 F 116 H 24 H 140/84 93 12/04/18 21:25 98.5 F 122 H 22 152/94 90 12/04/18 21:20 98.8 F 137 H 20 137/80 12/04/18 18:02 98 F 20 106/65 95 12/04/18 17:53 97.3 F 89 20 95/48 93 12/04/18 16:51 105/71 93 12/04/18 14:43 124/72 93 12/04/18 14:23 20 12/04/18 14:08 97.3 F 89 20 95/48 90 Intake and Output 12/04/18 12/05/18 12/05/18 21:59 05:59 13:59 Intake Total 1400 820 Output Total 500 1000 Balance 900 -180 Intake: IV 1400 100 Lactated Ringers 1,000 ml @ 20 1400 mls/hr IV .Q24H [facility] Rx#: [id number] Oral 720 Output: Urine Catheter Amount 500 1000 Other: Urine Appearance Clear Clear Uretheral ([place]) Clear Cloudy Urine Color Straw Bright Yellow Uretheral ([place]) Pale Light Christiana Urine Odor Strong Weight 278 lb 14.4 oz 274 lb 8 oz Laboratory Results - last 24 hr 12/04/18 12/04/18 12/04/18 14:28 14:53 14:53 WBC 8.9 RBC 4.69 Hgb 14.3 Hct 44.0 MCV 93.7 MCH 30.5 MCHC 32.5 RDW 13.3 Plt Count 352 MPV 8.0 Gran % 45.5 Lymph % (Auto) 35.6 [place] % (Auto) 15.4 H Eos % (Auto) 0.7 Baso % (Auto) 2.8 H Gran # 4.0 Lymph # (Auto) 3.2 [place] # (Auto) 1.4 H Eos # (Auto) 0.1 Baso # (Auto) 0.2 PT INR APTT Sodium 136 Potassium 3.7 Chloride 91 L Carbon Dioxide 32 H Anion Gap 13.0 BUN 6 L Creatinine 0.7 GFR Calculation 90 Glucose 111 H Uric Acid Calcium 9.1 Phosphorus Magnesium Total Bilirubin 0.5 Direct Bilirubin GGT AST 32 ALT 18 Alkaline Phosphatase 86 Lactate Dehydrogenase NT-Pro-B Natriuret Pep 1483.0 H Total Protein 7.1 Albumin 4.0 Globulin 3.1 Albumin/Globulin Ratio 1.3 Triglycerides 12/04/18 12/05/18 12/05/18 14:53 03:40 03:40 WBC 11.4 H RBC 4.10 Hgb 12.7 Hct 39.2 MCV 95.5 MCH 31.0 MCHC 32.4 RDW 13.4 Plt Count 329 MPV 8.3 Gran % 91.1 H Lymph % (Auto) 7.4 L [place] % (Auto) 1.4 Eos % (Auto) 0 Baso % (Auto) 0.1 Gran # 10.4 H Lymph # (Auto) 0.8 L [place] # (Auto) 0.2 Eos # (Auto) 0 Baso # (Auto) 0 PT 16.5 H INR 1.3 H APTT 35 Sodium 134 Potassium 3.7 Chloride 91 L Carbon Dioxide 33 H Anion Gap 10.0 BUN 5 L Creatinine 0.6 GFR Calculation 95 Glucose 165 H Uric Acid 6.7 Calcium 8.3 L Phosphorus 3.4 Magnesium 1.8 Total Bilirubin 0.4 Direct Bilirubin < 0.2 GGT 43 H AST 35 ALT 21 Alkaline Phosphatase 73 Lactate Dehydrogenase 234 NT-Pro-B Natriuret Pep Total Protein 6.1 Albumin 3.4 Globulin 2.7 Albumin/Globulin Ratio 1.3 Triglycerides 28 s/p L retrograge IM nailing of distal femur fx-stable mobilize with PT
[2018-12-05] MEDS: IPRATROPIUM/ALBUTEROL 3 ML AMPUL.NEB NEB PRN (12:32)
[2018-12-05] MEDS: HYDROmorphone 2 MG/ML VIAL IV PRN ×4 (15:35→21:02)
--- NOTE | 2018-12-05 18:33 | Consultation ---
DATE OF CONSULTATION: 12/04/2018 CONSULTATION CONSULTING PHYSICIAN: Rocael Vega MD REQUESTING: Emergency department under the request of Dr. Parviz Todd. REASON FOR CONSULTATION: Distal femur fracture on the left. HISTORY: This is a 68-year-old female who apparently got tangled up in her dog leash, tripped and fell injuring her left leg. She had immediate pain and deformity and inability to bear weight. She was taken by emergency medical services to the Emergency Department. X-rays were taken, which showed the above fracture and I was contacted. She rates the pain as 10/10, worse with any sort of movement, nothing making it better. She denies loss of consciousness or other significant injuries. PAST MEDICAL HISTORY: Extensive including congestive heart failure, COPD and asthma, chronic pain, hypertension, hepatitis C, severe morbid obesity, obstructive sleep apnea, atrial fibrillation. PAST SURGICAL HISTORY: Also extensive including tonsillectomy, splenectomy, laminectomy, knee replacement of the right knee as well as revision knee replacement done by me 2 years ago, cholecystectomy, back surgery, appendectomy. MEDICATIONS: Also extensive list including 81 mg aspirin, hydrocodone 10/325, morphine extended release 100 mg, rivaroxaban 20 mg, potassium chloride 20 mEq, Diltiazem 60 mg, lisinopril 2.5 mg, Furosemide 40 mg, albuterol inhaler, fluticasone propionate inhaler, ipratropium-albuterol inhaler, and Robaxin. ALLERGIES: INCLUDE ASPIRIN, ATENOLOL, HYDROCHLOROTHIAZIDE, KETOROLAC, LORAZEPAM, NONSTEROIDAL ANTI-INFLAMMATORIES, PROPOXYPHENE, ZOLPIDEM. SOCIAL HISTORY: She denies smoking or alcohol use. Lives by herself. REVIEW OF SYSTEMS: Positive for hypertension, coronary artery disease, diabetes. PHYSICAL EXAMINATION: VITAL SIGNS: At admission were temperature 97.3, pulse 89, respirations 20, blood pressure 105/71, pulse ox 93%. GENERAL APPEARANCE: She appears her stated age, alert and awake in moderate distress and tearful. EXTREMITIES: Her bilateral upper extremities and right lower extremity showed no obvious evidence of injury and are normal to inspection, range of motion, stability and strength. Left lower extremity reveals rotational deformity with exquisite tenderness to palpation. She has extreme limited motion secondary to pain and there is gross instability. Strength is about 1/5. Sensation to light touch is grossly intact. Pedal pulses palpable. Skin is intact. HEART: Irregular. LUNGS: Clear. IMAGING: Her x-rays reviewed shows a comminuted supracondylar fracture of the distal femur as well as knee arthritis. IMPRESSION: Left closed supracondylar distal femur fracture in a 68-year-old morbidly obese female whose BMI is 50. PLAN: I discussed with her, we need to proceed with open treatment and internal fixation with placement of a retrograde intramedullary brendan. Risks of surgery include, but not limited to bleeding; infection; injury to nerves, blood vessels, and other surrounding structures; anesthetic risks; nonunion or malunion of fracture; failure of hardware fixation, this being significantly increased given her morbid obesity and osteopenia; possibility of needing further surgery. She understands and wished to proceed. Correct operative site was marked. We will proceed this evening. BJB:[email or web address] Job ID: [id number] Doc ID: [id number] Rocael Vega MD
[2018-12-05] MEDS: METHOCARBAMOL 750 MG TABLET PO SCH (21:44)
[2018-12-06] MEDS: SENNOSIDES 1 TABLET PO PRN (00:15)
[2018-12-06] MEDS: HYDROmorphone 2 MG/ML VIAL IV PRN ×6 (00:15→19:01)
[2018-12-06] MEDS: HYDROcodone/APAP 10/325MG TABLET PO PRN ×5 (00:16→22:07)
[2018-12-06] MEDS: fentaNYL 100 MCG/2 ML VIAL IV PRN ×4 (04:24→17:21)
[2018-12-06] MEDS: 0.9 % SODIUM CHLORIDE 10 ML SYRINGE IV SCH ×3 (05:35→22:10)
[2018-12-06 06:28] LABS: ALT/SGPT 12 U/l (0-40); Albumin 3.1 gm/dL (3.2-5.2); Albumin/Globulin Ratio 1.2 (1.0-2.3); Alkaline Phosphatase 60 U/L (39-117); Basophils # (Auto) 0 K/mcL (0.0-0.3); Basophils % (Auto) 0.2 % (0.0-2.0); Bilirubin,Direct < 0.2 mg/dL (0.0-0.3); Blood Urea Nitrogen 9 mg/dl (8-23); Eosinophils # (Auto) 0 K/mcL (0.0-0.7); Eosinophils % (Auto) 0 % (0.0-7.0); Gamma Glutamyl Transpeptidase 36 U/L (5-36); Granulocytes % (Auto) 66.7 % (38.0-78.0); Lymphocytes # (Auto) 1.9 K/mcL (1.5-4.8); Lymphocytes % (Auto) 15.9 % (15.5-49.0); Mean Cell Volume 94.9 fL (80.0-100.0); Mean Corpuscular HGB Conc 32.8 g/dL (31.0-36.0); Monocytes % (Auto) 17.2 % (1.0-12.0); Platelet Count 276 K/mcL (140-440); RBC 3.59 M/mcL (4.00-5.20); Red Cell Distribution Width 13.3 % (11.5-14.5); Uric Acid 6.5 mg/dL (2.5-8.0)
--- NOTE | 2018-12-06 07:50 | Internal Med Progress Note ---
Medical - PN: Subj Patient information: Note initiated : 12/06/18 at 7:46 am Service Date, if different from initiated Date: [] Patient: Jennie Smith a 68 y/o F admitted on 12/04/18 for fall. Chief Complaint: [] Interval history: Ms. Smith is a 68 year old F Who got tangled up in the dog leash tripped down several steps falling onto her left leg. She did not hit her head. She had immediate pain to the leg. Nitro was called and brought her into the ER. Patient has a significant medical history including morbid obesity CHF which appears to be diastolic per history COPD chronic pain hypertension obstructive s leep apnea. Past several months she has been dealing with respiratory issues including pneumonia followed up with the upper respiratory tract infection and that she has sinusitis she recently started on nebulizer which improved her respiratory symptoms and she has not needed her albuterol since then. She is overall been feeling improved and recovering from her recent respiratory illness. she does have a a residual cough which is improving and is dry at this point. She does have some shortness of breath at baseline. She has chronic lymphedema and uses Lasix. 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 She is at increased risk perioperatively but she understands this, including risk of . However, a nonsurgical approach would be quite debilitating and would be worse off her. 12/05 Difficult to control pain last night. Started Dilaudid SET UP AND CHARGER with little effect. Eventually went to fentanyl which improved her pain. Patient has a high pain tolerance takes significant amount of narcotics at home. There is more comfortable this morning. 12/06 Not sleeping very well, however she is in good spirits still. Her pain is relatively well controlled considering her baseline. No new complaints. Other than a sore throat. No cough or dyspnea. Nurse reports that she seems to desaturate a little bit with the Dilaudid at night. While I was examining her in the morning I titrated her oxygen to half a liter and she was still satting mid 90s. She does use home inhalers for COPD. Review of Systems: denies headache/fever/chills/nausea/vomiting/chest or abdominal pa in/cough/dyspnea/diarrhea. Otherwise see above. - Constitutional Vitals: Vital Signs Temp Pulse Resp BP Pulse Ox 96.5 F L 93 H 18 125/89 93 12/06/18 07:00 12/06/18 00:01 12/06/18 07:00 12/06/18 07:00 12/06/18 07:27 Period Temp Pulse Resp BP Sys/Aguirre Pulse Ox Last 24 Hr 96.5 F-99.1 F 83-112 15-22 100-125/55-89 89-97 Intake and Output 12/05/18 12/06/18 12/06/18 21:59 05:59 13:59 Intake Total 740 1400 Output Total 1750 1650 Balance -1010 -250 Weight 125.872 kg Intake & Output: Intake & Output 12/05/18 12/06/18 12/06/18 21:59 05:59 13:59 Intake Total 740 1400 Output Total 1750 1650 Balance -1010 -250 Weight 125.872 kg Intake: Oral 740 1400 Output: Urine Catheter Amount 1750 1650 Other: Meal Dinner Percent of Meal Consumed 50% Urine Appearance Clear Uretheral ([place]) Clear Urine Color Pale Uretheral ([place]) Bright Yellow Urine Odor Normal Exam: general: Alert, Awake, obese, no acute distress Eyes/N/T: EOMI, Head/Neck: neck supple CV: Irregular, 2/6SM, Pulm: Clear b/l, no wheezing/rhonchi/rales Abd: soft, nontender, +BS x4 Ext: no clubbing/cyanosis, chronic lymphedema bilaterally, left leg dressings in place Neuro: Alert, no focal deficits, Skin: warm/dry Medical - PN: Obj Da - Labs CBC & Chem 7: 12/06/18 03:32 12/06/18 03:32 Labs: Abnormal Lab Results 12/06/18 12/06/18 12/05/18 03:32 03:32 03:40 WBC 11.9 H RBC 3.59 L Hgb 11.2 L Hct 34.1 L Gran % Lymph % (Auto) [place] % (Auto) 17.2 H Baso % (Auto) Gran # Lymph # (Auto) [place] # (Auto) 2.0 H PT INR Chloride 90 L 91 L Carbon Dioxide 31 H 33 H BUN 5 L Creatinine 0.5 L Glucose 135 H 165 H Calcium 8.5 L 8.3 L GGT 43 H NT-Pro-B Natriuret Pep Total Protein 5.6 L Albumin 3.1 L 12/05/18 12/04/18 12/04/18 03:40 14:53 14:53 WBC 11.4 H RBC Hgb Hct Gran % 91.1 H Lymph % (Auto) 7.4 L [place] % (Auto) Baso % (Auto) Gran # 10.4 H Lymph # (Auto) 0.8 L [place] # (Auto) PT 16.5 H INR 1.3 H Chloride 91 L Carbon Dioxide 32 H BUN 6 L Creatinine Glucose 111 H Calcium GGT NT-Pro-B Natriuret Pep Total Protein Albumin 12/04/18 12/04/18 14:53 14:28 WBC RBC Hgb Hct Gran % Lymph % (Auto) [place] % (Auto) 15.4 H Baso % (Auto) 2.8 H Gran # Lymph # (Auto) [place] # (Auto) 1.4 H PT INR Chloride Carbon Dioxide BUN Creatinine Glucose Calcium GGT NT-Pro-B Natriuret Pep 1483.0 H Total Protein Albumin Meds: Medications Acetaminophen (Tylenol) 650 mg PO Q6HP PRN PRN Reason: PAIN/FEVER > 101 Hydrocodone Bitart/Acetaminophen ([place] 10/325mg) 1 - 2 tab PO Q4-6HP PRN PRN Reason: Pain Last Admin: 12/06/18 04:22 Dose: 2 tab Documented by: Albuterol/Ipratropium (Duoneb) 3 ml NEB Q4HP PRN PRN Reason: Shortness Of Breath Last Admin: 12/05/18 12:32 Dose: 3 ml Documented by: Diltiazem HCl (Cardizem) [address] [facility] Last Admin: 12/05/18 21:45 Dose: 60 mg Documented by: Docusate Sodium (Colace) 100 mg PO BID [facility] Last Admin: 12/05/18 21:45 Dose: 100 mg Documented by: Famotidine (Pepcid) 20 mg PO BID [facility] Last Admin: 12/05/18 21:45 Dose: 20 mg Documented by: Fentanyl (Sublimaze) 25 - 50 mcg IV Q1HP PRN PRN Reason: PAIN LEVEL > 6 Last Admin: 12/06/18 04:24 Dose: 25 mcg Documented by: Fluticasone Propionate (Flovent Hfa 110mcg) 2 puff INH BID [facility] Last Admin: 12/05/18 21:47 Dose: 2 puff Documented by: Furosemide (Lasix) 40 mg PO BID [facility] Last Admin: 12/05/18 21:45 Dose: 40 mg Documented by: Hydromorphone HCl (Dilaudid) 0 mg IV Q2HP PRN PRN Reason: Pain Last Admin: 12/06/18 07:20 Dose: 1 mg Documented by: Potassium Chloride 40 meq/ (Dextrose) 520 mls @ 130 mls/hr IV ONCE PRN PRN Reason: Potassium < 3 Magnesium Sulfate (Magnesium Sulfate) 2 gm in 50 mls @ 50 mls/hr IV ONCE PRN PRN Reason: Magnesium </= 1.6 Lactulose (Cephulac) 10 gm PO DAILYP PRN PRN Reason: Constipation Methocarbamol (Robaxin) 750 mg PO [facility] Last Admin: 12/05/18 21:44 Dose: 750 mg Documented by: Metoprolol Tartrate (Lopressor) 5 mg IV Q2HP PRN PRN Reason: Tachyarrhythmias HR>110 Morphine Sulfate (Ms Contin) 90 mg PO BID [facility] Last Admin: 12/05/18 21:44 Dose: 90 mg Documented by: Morphine Sulfate (Ms Contin) 60 mg PO DAILY@1200 [facility] Last Admin: 12/05/18 12:01 Dose: 60 mg Documented by: Ondansetron HCl (Zofran) 4 mg IV Q4HP PRN PRN Reason: Nausea And Vomiting Last Admin: 12/04/18 22:57 Dose: 4 mg Documented by: Ondansetron HCl (Zofran Odt) 4 mg SL Q4HP PRN PRN Reason: Nausea And Vomiting Polyethylene Glycol (Miralax) 17 gm PO DAILYP PRN PRN Reason: Constipation Potassium [facility] Last Admin: 12/05/18 17:11 Dose: 20 meq Documented by: Potassium Chloride (Kdur) 40 meq PO ONCE PRN PRN Reason: Potssium is 3-3.5 Potassium Chloride (Kdur) 40 meq PO ONCE PRN PRN Reason: Potassium < 3 Prochlorperazine (Compazine) 10 mg IV Q6HP PRN PRN Reason: Nausea And Vomiting Promethazine HCl (Phenergan) 0 mg PO Q6HP PRN PRN Reason: Nausea And Vomiting Rivaroxaban (Xarelto) 20 mg PO DAILY@1800 [facility] Senna (Senokot) 2 tab PO HSP PRN PRN Reason: Constipation Last Admin: 12/06/18 00:15 Dose: 2 tab Documented by: Sodium Chloride (Saline Flush) 10 ml IV Q8 [place] Last Admin: 12/06/18 05:35 Dose: 10 ml Documented by: Medical - PN: A/P - Time Spent With Patient Total time spent is greater than 50% in coordination of care (as documented) at patient's floor/unit and/or counseling patient: - Narrative A/P Narrative: A: *Left distal femur fracture: s/p ORIF (12/04) *History of A. fib: On diltiazem and Xarelto, follows Dr. Daley *History of CHF, appears to be diastolic per old notes and the fact that she is on diltiazem *Morbid obesity: *COPD/asthma: On inhalers, not on home oxygen *BRYAN on CPAP: *Chronic pain, back and knees on heavy dose of narc: Follows with Dr. herron *GERD: *HTN: * P: -Patient at increased perioperative risk given her comorbidities, patient understands risks -Monitor I's and O's and daily weights -Continue home Dilt, -Pain management with home regimen and as needed IV fentanyl which seems to be working well -cont home lasix -IS, prn nebs -pt/ot -ppx: restart Xarelto today/Pepcid Medical - PN: Qual - VTE Deep Vein Thrombosis/Pulmonary Embolism Present on Admission: No
[2018-12-06] MEDS: IPRATROPIUM/ALBUTEROL 3 ML AMPUL.NEB NEB PRN ×2 (09:03→23:02)
[2018-12-06] MEDS ORDERED: BENZOCAINE/MENTHOL 1 LOZENGE PO PRN (09:44)
--- NOTE | 2018-12-06 09:51 | XRay Report ---
CLINICAL INFORMATION: dyspnea COMPARISON: 12/04/2018 FINDINGS: Moderate cardiomegaly is unchanged. Mediastinum is unremarkable. Pulmonary vasculature has returned to normal in caliber. Mild bibasilar atelectasis show slight progression. Right diaphragm is chronically elevated and there is a small eventration of the left diaphragm - both are stable. No effusions IMPRESSION: Interval resolution in acute CHF Mild bibasilar atelectasis Interpreted and Authenticated by: Luis E Nayak 12/06/18
[2018-12-06] MEDS: morphine 30 MG TAB.SR.12H PO SCH ×3 (09:58→22:08)
[2018-12-06] MEDS: FLUTICASONE HFA 110MCG INHALER INH SCH ×2 (09:59→22:11)
[2018-12-06] MEDS: FUROSEMIDE 40 MG TABLET PO SCH ×2 (09:59→22:10)
[2018-12-06] MEDS: DOCUSATE SODIUM 100 MG CAPSULE PO SCH ×2 (09:59→22:09)
[2018-12-06] MEDS: FAMOTIDINE 20 MG TABLET PO SCH ×2 (09:59→22:09)
[2018-12-06] MEDS: POTASSIUM CHLORIDE 20 MEQ TABLET PO SCH ×2 (09:59→17:14)
[2018-12-06] MEDS: DILTIAZEM 30 MG TABLET PO SCH ×4 (09:59→22:06)
[2018-12-06] MEDS ORDERED: fentaNYL 12 MCG PATCH TOPICAL SCH (10:00)
--- NOTE | 2018-12-06 11:04 | Discharge Summary ---
Medical - DS: Prov Patient information: Note initiated : 12/06/18 at 11:01 am Service Date, if different from initiated Date: [] Patient: Jennie Smith 68 y/o F admitted on 12/04/18 for fall. Chief Complaint: [] Date of admission: 12/04/18 17:53 Discharge date: 12/07/18 Primary care physician: David Bettencourt Consults: 12/04/18 Consult to Physician [CONS] Stat Comment: Consulting Provider: Rocael Vega Reason For Exam: Physician to Consult Consult to Physician [CONS] Stat Comment: Consulting Provider: Tito Cross Reason For Exam: Physician to Consult Medical - DS: Meds - Discharge Medications Active and Home Medications: Home Medications Auto-Titrating CPAP MISCELLANE .COMPLEX 04/18/15 [History Confirmed 12/04/18 Last Taken Unknown] aspirin 81 mg tablet,delayed release 81 mg PO QDAY tab 04/18/15 [History Confirmed 12/04/18 Last Taken Unknown] hydrocodone 10 mg-acetaminophen 325 mg tablet See Dose Instructions PO .Q4-6H PRN tab 04/18/15 [History Confirmed 12/04/18 Last Taken Unknown] morphine ER 100 mg capsule,extended release pellets 100 mg PO .COMPLEX cap 04/18/15 [History Confirmed 12/04/18 Last Taken Unknown] multivitamin tablet 1 tab PO .COMPLEX tab 04/18/15 [History Confirmed 12/04/18 Last Taken Unknown] potassium chloride ER 20 mEq tablet,extended release 20 meq PO .COMPLEX tab 04/18/15 [History Confirmed 12/04/18 Last Taken Unknown] rivaroxaban 20 mg tablet 20 mg PO .COMPLEX tab 04/18/15 [History Confirmed 12/04/18 Last Taken Unknown] CUSTOM FIT COMPRESSION STOCKINGS #1 each 10/30/16 [Rx Confirmed 12/04/18 Last Taken Unknown] FULL SIZE EGG CRATE MATTRESS #1 each 10/30/16 [Rx Confirmed 12/04/18 Last Taken Unknown] diltiazem 60 mg tablet 60 mg PO QID 90 Days #360 tab 11/05/16 [Rx Confirmed 12/04/18 Last Taken Unknown] Foam Block #1 each 12/13/16 [Rx Confirmed 12/04/18 Last Taken Unknown] disposable gloves See Dose Instructions .ROUTE .MEDSUPPLY #100 each 07/28/17 [Rx Confirmed 12/04/18 Last Taken Unknown] lisinopril 2.5 mg tablet 2.5 mg PO BID #180 tab 03/23/18 [Rx Confirmed 12/04/18 Last Taken Unknown] furosemide 40 mg tablet 40 mg PO BID #180 tab 06/23/18 [Rx Confirmed 12/04/18 Last Taken Unknown] albuterol sulfate HFA 90 mcg/actuation aerosol inhaler See Rx Instructions .ROUTE .COMPLEX #54 gram 10/23/18 [Rx Confirmed 12/04/18 Last Taken Unknown] Spacer for ventolin inhaler #1 ea 11/02/18 [Rx Confirmed 12/04/18 Last Taken Unknown] fluticasone propionate 110 mcg/actuation HFA aerosol inhaler 4 puff INHALATION BID #36 g 11/02/18 [Rx Confirmed 12/04/18 Last Taken Unknown] nebulizer accessories kit See Dose Instructions .ROUTE .MEDSUPPLY #1 each 11/03/18 [Rx Confirmed 12/04/18 Last Taken Unknown] nebulizers See Dose Instructions .ROUTE .MEDSUPPLY #1 each 11/03/18 [Rx Confirmed 12/04/18 Last Taken Unknown] ipratropium-albuterol 0.5 mg-3 mg(2.5 mg base)/3 mL nebulization soln 3 ml INHALATION QID #180 ml 11/13/18 [Rx Confirmed 12/04/18 Last Taken Unknown] Methocarbamol [Robaxin] 750 mg PO HSP 12/04/18 [History Confirmed 12/04/18 Last Taken Unknown] Medical - DS: Hosp Hospital course: Ms. Smith is a 68 year old F Who got tangled up in the dog leash tripped down several steps falling onto her left leg. She did not hit her head. She had immediate pain to the leg. Nitro was called and brought her into the ER. Patient has a significant medical history including morbid obesity CHF which appears to be diastolic per history COPD chronic pain hypertension obstructive sleep apnea. Past several months she has been dealing with respiratory issues including pneumonia followed up with the upper respiratory tract infection and that she has sinusitis she recently started on nebulizer which improved her respiratory symptoms and she has not needed her albuterol since then. She is overall been feeling improved and recovering from her recent respiratory illness. she does have a a residual cough which is improving and is dry at this point. She does have some shortness of breath at baseline. She has chronic lymphedema and uses Lasix. 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 She is at increased risk perioperatively but she understands this, including risk of . However, a nonsurgical approach would be quite debilitating and would be worse off her. 12/05 Difficult to control pain last night. 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 Eventually went to fentanyl which improved her pain. Patient has a high pain tolerance takes significant amount of narcotics at home. There is more comfortable this morning. 12/06 Not sleeping very well, however she is in good spirits still. Her pain is relatively well controlled considering her baseline. No new complaints. Other than a sore throat. No cough or dyspnea. Nurse reports that she seems to desaturate a little bit with the Dilaudid at night. While I was examining her in the morning I titrated her oxygen to half a liter and she was still satting mid 90s. She does use home inhalers for COPD. Discharge diagnosis: Left distal femur fracture A. fib history of CHF morbid obesity Secondary discharge diagnosis: COPD obstructive sleep apnea chronic pain GERD hypertension - Time Spent with Patient Total time spent providing and/or coordinating discharge services: Greater than 30 minutes Medical - DS: Exam - Constitutional Vitals: Vital Signs Temp Pulse Resp BP BP Pulse Ox 12/06/18 09:52 114 H 15 94 12/06/18 09:12 99 H 21 12/06/18 07:37 91 H 15 125/89 91 12/06/18 07:27 93 12/06/18 07:00 96.5 F L 18 125/89 93 12/06/18 04:00 91 H 16 108/73 89 L 12/06/18 03:43 98.2 F 12/06/18 00:01 98.2 F 93 H 18 100/55 91 12/05/18 21:12 99.1 F H 97 H 18 104/67 89 L 12/05/18 19:23 94 12/05/18 16:54 98 H 18 97 12/05/18 16:00 99 H 15 115/70 93 12/05/18 15:40 103 H 20 111/72 92 12/05/18 15:00 99.0 F 18 111/72 95 12/05/18 13:55 112 H 20 95 12/05/18 13:12 101 H 20 12/05/18 12:00 98 H 21 117/71 92 12/05/18 11:55 98.4 F 20 122/86 93 12/05/18 11:53 92 H 21 122/86 95 Intake and Output 12/05/18 12/06/18 12/06/18 21:59 05:59 13:59 Intake Total 740 1400 300 Output Total 1750 1650 Balance -1010 -250 300 Intake: Oral 740 1400 300 Output: Urine Catheter Amount 1750 1650 Other: Meal Dinner Breakfast Percent of Meal Consumed 50% 100% Urine Appearance Clear Uretheral ([place]) Clear Urine Color Pale Uretheral ([place]) Bright Yellow Urine Odor Normal Weight 125.872 kg Medical - DS: Data Labs on day of discharge: Labs from last 24 hours 12/06/18 12/06/18 03:32 03:32 WBC 11.9 H RBC 3.59 L Hgb 11.2 L Hct 34.1 L MCV 94.9 MCH 31.2 MCHC 32.8 RDW 13.3 Plt Count 276 MPV 8.5 Gran % 66.7 Lymph % (Auto) 15.9 [place] % (Auto) 17.2 H Eos % (Auto) 0 Baso % (Auto) 0.2 Gran # 8.0 Lymph # (Auto) 1.9 [place] # (Auto) 2.0 H Eos # (Auto) 0 Baso # (Auto) 0 Sodium 133 Potassium 4.2 Chloride 90 L Carbon Dioxide 31 H Anion Gap 12.0 BUN 9 Creatinine 0.5 L GFR Calculation 101 Glucose 135 H Uric Acid 6.5 Calcium 8.5 L Phosphorus 3.0 Magnesium 1.9 Total Bilirubin 0.6 Direct Bilirubin < 0.2 GGT 36 AST 28 ALT 12 Alkaline Phosphatase 60 Lactate Dehydrogenase 203 Total Protein 5.6 L Albumin 3.1 L Globulin 2.5 Albumin/Globulin Ratio 1.2 Triglycerides 42 Medical - DS: A/P - Patient/Caregiver Discharge Instructions Activity: as per physical therapy Diet: Cardiac - Follow up Plan Follow up with: David Bettencourt PA-C [Primary Care Provider] - Disposition: Xfer SNF Prognosis: Fair Rehab Potential: Fair I certify that the patient requires SNF services: Yes Overall status at discharge: patient is progressing back to baseline Medical - DS: Qual - VTE Deep Vein Thrombosis/Pulmonary Embolism Present on Admission: No
[2018-12-06] MEDS: POLYETHYLENE GLYCOL 3350 17 GM PACKET PO PRN (11:49)
[2018-12-06] MEDS: RIVAROXABAN 20 MG TABLET PO SCH (17:14)
--- NOTE | 2018-12-06 17:35 | Orthopedic Progress Note ---
Orthopedics - Auxillary Note - Subjective Patient Information: Note initiated : 12/06/18 at 5:30 pm Service Date, if different from initiated Date: [] Patient: Jennie Smith 68 y/o F admitted on 12/04/18 for fall. Chief Complaint: Moderate to severe pain L femur. badnages c/d/i nvi-distal Vital Signs Temp Pulse Resp BP BP Pulse Ox 12/06/18 15:00 98.6 F 22 113/74 93 12/06/18 11:00 98.4 F 18 109/72 94 12/06/18 09:52 114 H 15 94 12/06/18 09:12 99 H 21 12/06/18 08:00 94 12/06/18 07:37 91 H 15 125/89 91 12/06/18 07:27 93 12/06/18 07:00 96.5 F L 18 125/89 93 12/06/18 04:00 91 H 16 108/73 89 L 12/06/18 03:43 98.2 F 12/06/18 00:01 98.2 F 93 H 18 100/55 91 12/05/18 21:12 99.1 F H 97 H 18 104/67 89 L 12/05/18 19:23 94 Intake and Output 12/06/18 12/06/18 12/06/18 05:59 13:59 21:59 Intake Total 1400 540 350 Output Total 1650 Balance -250 540 350 Intake: Oral 1400 540 350 Output: Urine Catheter Amount 1650 Other: Meal Breakfast Percent of Meal Consumed 100% Urine Appearance Uretheral ([place]) Clear Urine Color Uretheral ([place]) Bright Yellow Laboratory Results - last 24 hr 12/06/18 12/06/18 03:32 03:32 WBC 11.9 H RBC 3.59 L Hgb 11.2 L Hct 34.1 L MCV 94.9 MCH 31.2 MCHC 32.8 RDW 13.3 Plt Count 276 MPV 8.5 Gran % 66.7 Lymph % (Auto) 15.9 [place] % (Auto) 17.2 H Eos % (Auto) 0 Baso % (Auto) 0.2 Gran # 8.0 Lymph # (Auto) 1.9 [place] # (Auto) 2.0 H Eos # (Auto) 0 Baso # (Auto) 0 Sodium 133 Potassium 4.2 Chloride 90 L Carbon Dioxide 31 H Anion Gap 12.0 BUN 9 Creatinine 0.5 L GFR Calculation 101 Glucose 135 H Uric Acid 6.5 Calcium 8.5 L Phosphorus 3.0 Magnesium 1.9 Total Bilirubin 0.6 Direct Bilirubin < 0.2 GGT 36 AST 28 ALT 12 Alkaline Phosphatase 60 Lactate Dehydrogenase 203 Total Protein 5.6 L Albumin 3.1 L Globulin 2.5 Albumin/Globulin Ratio 1.2 Triglycerides 42 s/p IM retrograde IM nail for L distal femur fx-stable -Mobilize with PT -Discussed potential pain management strategies with nurse: Consider IV Tylenol, d/c norco and replace with oxycodone. Increase Methocarbanol to tid. Also consider benzo for anxiety. Continue with Hospitalist management of pain to avoid confusion.
[2018-12-06] MEDS ORDERED: hydrOXYzine 25 MG TABLET PO ONE (18:12)
[2018-12-06] MEDS ORDERED: fentaNYL 100 MCG PATCH TOPICAL SCH (18:15)
[2018-12-06] MEDS: METHOCARBAMOL 750 MG TABLET PO PRN (22:08)
[2018-12-07] MEDS: HYDROmorphone 2 MG/ML VIAL IV PRN ×6 (00:03→22:00)
[2018-12-07] MEDS: SENNOSIDES 1 TABLET PO PRN (00:04)
[2018-12-07] MEDS: HYDROcodone/APAP 10/325MG TABLET PO PRN ×5 (02:27→18:58)
[2018-12-07] MEDS: METHOCARBAMOL 750 MG TABLET PO PRN ×2 (05:34→14:40)
[2018-12-07] MEDS: 0.9 % SODIUM CHLORIDE 10 ML SYRINGE IV SCH ×3 (05:35→21:37)
[2018-12-07 05:39] LABS: Mean Cell Volume 95.3 fL (80.0-100.0); Mean Corpuscular HGB Conc 32.7 g/dL (31.0-36.0); Platelet Count 268 K/mcL (140-440); RBC 3.46 M/mcL (4.00-5.20); Red Cell Distribution Width 13.3 % (11.5-14.5)
[2018-12-07 06:20] LABS: Blood Urea Nitrogen 9 mg/dl (8-23)
[2018-12-07 06:54] LABS: Lymphocytes % 21 % (15-49); Monocytes % (Manual) 12 % (1-12); Platelet Estimate NORMAL (NORMAL); RBC Morphology NORMAL (NORMAL); Segmented Neutrophils % 67 % (38-78)
--- NOTE | 2018-12-07 07:19 | Internal Med Progress Note ---
Medical - PN: Subj Patient information: Note initiated : 12/07/18 at 7:17 am Service Date, if different from initiated Date: [] Patient: Jennie Smith a 68 y/o F admitted on 12/04/18 for fall. Chief Complaint: [] Interval history: Ms. Smith is a 68 year old F Who got tangled up in the dog leash tripped down several steps falling onto her left leg. She did not hit her head. She had immediate pain to the leg. Nitro was called and brought her into the ER. Patient has a significant medical history including morbid obesity CHF which appears to be diastolic per history COPD chronic pain hypertension obstructive s leep apnea. Past several months she has been dealing with respiratory issues including pneumonia followed up with the upper respiratory tract infection and that she has sinusitis she recently started on nebulizer which improved her respiratory symptoms and she has not needed her albuterol since then. She is overall been feeling improved and recovering from her recent respiratory illness. she does have a a residual cough which is improving and is dry at this point. She does have some shortness of breath at baseline. She has chronic lymphedema and uses Lasix. 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 She is at increased risk perioperatively but she understands this, including risk of . However, a nonsurgical approach would be quite debilitating and would be worse off her. 12/05 Difficult to control pain last night. 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 Eventually went to fentanyl which improved her pain. Patient has a high pain tolerance takes significant amount of narcotics at home. There is more comfortable this morning. 12/06 Not sleeping very well, however she is in good spirits still. Her pain is relatively well controlled considering her baseline. No new complaints. Other than a sore throat. No cough or dyspnea. Nurse reports that she seems to desaturate a little bit with the Dilaudid at night. While I was examining her in the morning I titrated her oxygen to half a liter and she was still satting mid 90s. She does use home inhalers for COPD. 12/07 Pain control improving with fentanyl patch. Still need to titrate up. Slept be tter with hydroxyzine last night. Overall feeling better. Overnight events. On room air when I saw her this morning. Review of Systems: denies headache/fever/chills/nausea/vomiting/chest or abdominal pain/cough/dyspnea/diarrhea. Otherwise see above. - Constitutional Vitals: Vital Signs Temp Pulse Resp BP Pulse Ox 98.1 F 103 H 20 109/65 92 12/07/18 03:28 12/07/18 03:28 12/07/18 03:28 12/07/18 03:28 12/07/18 03:28 Period Temp Pulse Resp BP Sys/Aguirre Pulse Ox Last 24 Hr 98.1 F-98.6 F 91-114 15-22 109-125/64-89 90-94 Intake and Output 12/06/18 12/07/18 12/07/18 21:59 05:59 13:59 Intake Total 710 800 Output Total 1700 2000 Balance -990 -1200 Weight 127.459 kg Intake & Output: Intake & Output 12/06/18 12/07/18 12/07/18 21:59 05:59 13:59 Intake Total 710 800 Output Total 1700 2000 Balance -990 -1200 Weight 127.459 kg Intake: Oral 710 800 Output: Urine Catheter Amount 1700 2000 Other: Meal Dinner Percent of Meal Consumed 100% Feeding Ability Independent Urine Appearance Clear Clear Uretheral ([place]) Clear Urine Color Dark Yellow Pale Uretheral ([place]) Pale Urine Odor Normal Exam: general: Alert, Awake, obese, no acute distress Eyes/N/T: EOMI, Head/Neck: neck supple CV: Irregular, 2/6SM, Pulm: Clear b/l, no wheezing/rhonchi/rales Abd: soft, nontender, +BS x4 Ext: no clubbing/cyanosis, chronic lymphedema bilaterally, left leg dressings in place Neuro: Alert, no focal deficits, Skin: warm/dry Medical - PN: Obj Da - Labs CBC & Chem 7: 12/07/18 03:25 12/07/18 03:25 Labs: Abnormal Lab Results 12/07/18 12/07/18 12/06/18 03:25 03:25 03:32 WBC 13.2 H RBC 3.46 L Hgb 10.8 L Hct 33.0 L Gran % Lymph % (Auto) Ogle % (Auto) Baso % (Auto) Gran # Lymph # (Auto) Ogle # (Auto) PT INR Chloride 93 L 90 L Carbon Dioxide 35 H 31 H BUN Creatinine 0.5 L 0.5 L Glucose 132 H 135 H Calcium 8.3 L 8.5 L GGT NT-Pro-B Natriuret Pep Total Protein 5.6 L Albumin 3.1 L 12/06/18 12/05/18 12/05/18 03:32 03:40 03:40 WBC 11.9 H 11.4 H RBC 3.59 L Hgb 11.2 L Hct 34.1 L Gran % 91.1 H Lymph % (Auto) 7.4 L Ogle % (Auto) 17.2 H Baso % (Auto) Gran # 10.4 H Lymph # (Auto) 0.8 L Ogle # (Auto) 2.0 H PT INR Chloride 91 L Carbon Dioxide 33 H BUN 5 L Creatinine Glucose 165 H Calcium 8.3 L GGT 43 H NT-Pro-B Natriuret Pep Total Protein Albumin 12/04/18 12/04/18 12/04/18 14:53 14:53 14:53 WBC RBC Hgb Hct Gran % Lymph % (Auto) Ogle % (Auto) 15.4 H Baso % (Auto) 2.8 H Gran # Lymph # (Auto) Ogle # (Auto) 1.4 H PT 16.5 H INR 1.3 H Chloride 91 L Carbon Dioxide 32 H BUN 6 L Creatinine Glucose 111 H Calcium GGT NT-Pro-B Natriuret Pep Total Protein Albumin 12/04/18 14:28 WBC RBC Hgb Hct Gran % Lymph % (Auto) Ogle % (Auto) Baso % (Auto) Gran # Lymph # (Auto) Ogle # (Auto) PT INR Chloride Carbon Dioxide BUN Creatinine Glucose Calcium GGT NT-Pro-B Natriuret Pep 1483.0 H Total Protein Albumin Meds: Medications Acetaminophen (Tylenol) 650 mg PO Q6HP PRN PRN Reason: PAIN/FEVER > 101 Hydrocodone Bitart/Acetaminophen ([place] 10/325mg) 1 - 2 tab PO Q4-6HP PRN PRN Reason: Pain Last Admin: 12/07/18 05:34 Dose: 2 tab Documented by: Albuterol/Ipratropium (Duoneb) 3 ml NEB Q4HP PRN PRN Reason: Shortness Of Breath Last Admin: 12/06/18 23:02 Dose: 3 ml Documented by: Diltiazem HCl (Cardizem) 60 mg PO ACHS [facility] Last Admin: 12/06/18 22:06 Dose: 60 mg Documented by: Docusate Sodium (Colace) 100 mg PO BID [facility] Last Admin: 12/06/18 22:09 Dose: 100 mg Documented by: Famotidine (Pepcid) 20 mg PO BID [facility] Last Admin: 12/06/18 22:09 Dose: 20 mg Documented by: Fentanyl (Sublimaze) 25 - 50 mcg IV Q1HP PRN PRN Reason: PAIN LEVEL > 6 Last Admin: 12/06/18 17:21 Dose: 50 mcg Documented by: Fentanyl (Duragesic) 12 mcg TOPICAL Q72H [facility] Last Admin: 12/06/18 19:29 Dose: 12 mcg Documented by: Fluticasone Propionate (Flovent Hfa 110mcg) 2 puff INH BID [facility] Last Admin: 12/06/18 22:11 Dose: 2 puff Documented by: Furosemide (Lasix) 40 mg PO BID [facility] Last Admin: 12/06/18 22:10 Dose: 40 mg Documented by: Hydromorphone HCl (Dilaudid) 0 mg IV Q2HP PRN PRN Reason: Pain Last Admin: 12/07/18 05:34 Dose: 1 mg Documented by: Potassium Chloride 40 meq/ (Dextrose) 520 mls @ 130 mls/hr IV ONCE PRN PRN Reason: Potassium < 3 Magnesium Sulfate (Magnesium Sulfate) 2 gm in 50 mls @ 50 mls/hr IV ONCE PRN PRN Reason: Magnesium </= 1.6 Lactulose (Cephulac) 10 gm PO DAILYP PRN PRN Reason: Constipation Methocarbamol (Robaxin) 750 mg PO QIDP PRN PRN Reason: Pain Last Admin: 12/07/18 05:34 Dose: 750 mg Documented by: Metoprolol Tartrate (Lopressor) 5 mg IV Q2HP PRN PRN Reason: Tachyarrhythmias HR>110 Morphine Sulfate (Ms Contin) 90 mg PO BID [facility] Last Admin: 12/06/18 22:08 Dose: 90 mg Documented by: Morphine Sulfate (Ms Contin) 60 mg PO DAILY@1200 [facility] Last Admin: 12/06/18 12:59 Dose: 60 mg Documented by: Ondansetron HCl (Zofran) 4 mg IV Q4HP PRN PRN Reason: Nausea And Vomiting Last Admin: 12/04/18 22:57 Dose: 4 mg Documented by: Ondansetron HCl (Zofran Odt) 4 mg SL Q4HP PRN PRN Reason: Nausea And Vomiting Polyethylene Glycol (Miralax) 17 gm PO DAILYP PRN PRN Reason: Constipation Last Admin: 12/06/18 11:49 Dose: 17 gm Documented by: Potassium Chloride (Kdur) 20 meq PO BIDCC [facility] Last Admin: 12/06/18 17:14 Dose: 20 meq Documented by: Potassium Chloride (Kdur) 40 meq PO ONCE PRN PRN Reason: Potssium is 3-3.5 Potassium Chloride (Kdur) 40 meq PO ONCE PRN PRN Reason: Potassium < 3 Prochlorperazine (Compazine) 10 mg IV Q6HP PRN PRN Reason: Nausea And Vomiting Promethazine HCl (Phenergan) 0 mg PO Q6HP PRN PRN Reason: Nausea And Vomiting Rivaroxaban (Xarelto) 20 mg PO DAILY@1800 [facility] Last Admin: 12/06/18 17:14 Dose: 20 mg Documented by: Senna (Senokot) 2 tab PO HSP PRN PRN Reason: Constipation Last Admin: 12/07/18 00:04 Dose: 2 tab Documented by: Sodium Chloride (Saline Flush) 10 ml IV Q8 [facility] Last Admin: 12/07/18 05:35 Dose: 10 ml Documented by: Throat Lozenges (Cepacol) 1 lozenge PO PRN PRN PRN Reason: Sore Throat Medical - PN: A/P - Time Spent With Patient Total time spent is greater than 50% in coordination of care (as documented) at patient's floor/unit and/or counseling patient: - Narrative A/P Narrative: A: *Left distal femur fracture: s/p ORIF (12/04) *History of A. fib: On diltiazem and Xarelto, follows Dr. Daley *History of CHF, appears to be diastolic per old notes and the fact that she is on diltiazem *Morbid obesity: *COPD/asthma: On inhalers, not on home oxygen *BRYAN on CPAP: *Chronic pain, back and knees on heavy dose of narc: Follows with Dr. herron *GERD: *HTN: * P: -Patient at increased perioperative risk given her comorbidities, patient understands risks -Monitor I's and O's and daily weights -Continue home Dilt, -Pain management with home regimen, added fentanyl patch, prn IV fentanyl. Better since patch started, titrate up. -cont home lasix -IS, prn nebs -pt/ot -ppx: restarted Xarelto/Pepcid Medical - PN: Qual - VTE Deep Vein Thrombosis/Pulmonary Embolism Present on Admission: No
[2018-12-07] MEDS: fentaNYL 100 MCG/2 ML VIAL IV PRN (07:47)
--- NOTE | 2018-12-07 08:15 | Operative Note ---
DATE OF OPERATION: 12/04/2018 PREOPERATIVE DIAGNOSIS: Comminuted left supracondylar distal femur fracture, closed. POSTOPERATIVE DIAGNOSIS: Comminuted left supracondylar distal femur fracture, closed. PROCEDURE PERFORMED: Open treatment and internal fixation with retrograde intramedullary rodding of the left supracondylar distal femur fracture using a Rayne 320 x 12 mm femoral brendan. SURGEON: Rocael Vega M.D. VEST BUSHELER: Tremaine Licona PA-C. ANESTHESIA: General. DRAINS: None. SPECIMENS: None. COMPLICATIONS: None. BLOOD LOSS: 200 mL. POSTOPERATIVE CONDITION: Stable. INDICATIONS FOR SURGERY: This is a morbidly obese 68-year-old female who sustained a fall, had severe pain and inability to bear weight. Her radiographs showed a comminuted supracondylar distal femur fracture. FINDINGS AT SURGERY: As above. Post-fixation showed acceptable limb alignment, fracture reduction and hardware position. PROCEDURE IN DETAIL: The patient had been seen in preop holding and informed consent had been obtained after discussion of risks and benefits of surgery. Risks including, but not limited to, bleeding; infection; injury to nerves, blood vessels, other surrounding structures; anesthetic risks; nonunion or malunion of the fracture; failure of hardware fixation; possibility of needing further surgery. She understood and wished to proceed. The correct operative site was marked and then patient was taken to the operating room. General anesthesia induced. The left lower extremity was carefully prepped and draped in normal sterile fashion, and a time-out was performed verifying patient name, operative site, and plan. Sterile tourniquet was placed, and then an Esmarch used to exsanguinate the extremity and tourniquet was inflated to 350 mmHg. Due to the fact that she had severe knee arthritis and possibility of needing further knee arthroplasty in the future and also the fact that she is morbidly obese, we went ahead and did a standard total knee incision. A total knee incision was made midline with a scalpel through skin and subcutaneous tissue. Hemostasis was obtained with Bovie cautery. Irrisept was irrigated and then a medial parapatellar arthrotomy made. A large hematoma was evacuated from the knee. We then used a guide pin placed central in the notch just above the femoral notch. This was passed into the distal fragment and then opening reamer was used. We then used a ball tip guidewire to cross the fracture site. I did pass this up then to the lesser trochanter. Our length was measured and 320 mm was the length. We then started reaming, holding fracture reduction and reamed up to a size 13.5 reamer which was getting significant cortical chatter. We did release the tourniquet prior to reaming. Once reaming was completed, we reinflated the tourniquet. The 320 x 12 mm retrograde nail from Jt was opened. This was passed over the guidewire. We impacted this under direct vision until the brendan was countersunk about 0.5 cm. The jig was then placed onto the end of the brendan. We then drilled and placed the four distal interlocking screws. Bringing the sleeve to skin, we would make stab incisions. The sleeve was then passed to bone. We would drill under fluoro and measure the length and then the screws were placed. Once all four distal screws were placed, we then did a little bit further fracture reduction with some traction as there was comminution there. We then checked our AP and lateral images and felt the fracture reduction was acceptable. We then went proximally and with fluoroscopy got perfect circles. A stab incision was made over the anterior proximal thigh and then spread down to bone with a tonsil clamp. A drill was then used using freehand technique, passed through the static proximal interlock hole. I did this due to the comminution of the fracture. We then used a depth gauge and placed a 37.5 proximal interlocking screw. Fluoroscopy was used to verify it was through the hole on the AP view and then a lateral verified length. Final fluoro images were saved and printed. We then irrigated with Irrisept, after a minute we pulse lavaged with saline. The knee was placed over the triangle and interrupted [id number] #1 Vicryls were used around the patella, running #1 Vicryl for patellar tendon and quad tendon, 2-0 Monocryl was used for subcutaneous closure, and then skin ty for skin. Ty were used for the stab incisions for the interlock screws. Xeroform and sterile dressing were applied and the tourniquet had been released. The patient was awakened, extubated, and transferred to ICU for recovery. FLORENTIN:charis Job ID: [id number] Doc ID: [id number] Rocael Vega MD
[2018-12-07 08:24] LABS: Appearance,Urine CLEAR; Bacteria,Urine 0 /hpf (0); Bilirubin,Urine NEG (NEG); Color,Urine YELLOW; Glucose,Urine (UA) NEGATIVE (NEG); Leukocyte Esterase,Urine NEG /uL (NEG); Mucus,Urine FEW /hpf (0); Protein,Urine 30 mg/dL (NEG); Specific Gravity,Urine 1.017 (1.000-1.035); Urine Blood 0.2 mg/dL (<0.03); Urine Hyaline Cast 2 /lpf (0-2); Urine RBC 48 /hpf (0-1); Urine Squamous Epithelial Cell 0 /hpf (0-4); Urine Transitional Epi Cells < 1 /hpf (0-2); Urine WBC 4 /hpf (0-4); Urobilinogen,Urine NEG (NEG)
[2018-12-07] MEDS: LACTULOSE 20 GM/30 ML ORAL.SOL PO PRN (09:32)
[2018-12-07] MEDS: FLUTICASONE HFA 110MCG INHALER INH SCH ×2 (09:32→21:32)
[2018-12-07] MEDS: DILTIAZEM 30 MG TABLET PO SCH ×4 (09:32→21:32)
[2018-12-07] MEDS: FAMOTIDINE 20 MG TABLET PO SCH ×2 (09:33→21:32)
[2018-12-07] MEDS: DOCUSATE SODIUM 100 MG CAPSULE PO SCH ×2 (09:33→21:33)
[2018-12-07] MEDS: POTASSIUM CHLORIDE 20 MEQ TABLET PO SCH ×2 (09:33→16:41)
[2018-12-07] MEDS: FUROSEMIDE 40 MG TABLET PO SCH ×2 (09:40→21:33)
[2018-12-07] MEDS: morphine 30 MG TAB.SR.12H PO SCH ×3 (09:40→21:33)
[2018-12-07] MEDS ORDERED: fentaNYL 25 MCG PATCH TOPICAL SCH (10:00)
[2018-12-07] MEDS ORDERED: fentaNYL 12 MCG PATCH TOPICAL SCH (10:00)
[2018-12-07 12:33] LABS: Appearance,Urine CLEAR; Bacteria,Urine 0 /hpf (0); Bilirubin,Urine NEG (NEG); Color,Urine STRAW; Glucose,Urine (UA) NEGATIVE (NEG); Leukocyte Esterase,Urine NEG /uL (NEG); Mucus,Urine FEW /hpf (0); Protein,Urine NEG (NEG); Specific Gravity,Urine 1.008 (1.000-1.035); Urine Blood 0.03 mg/dL (<0.03); Urine RBC 12 /hpf (0-1); Urine Squamous Epithelial Cell < 1 /hpf (0-4); Urine WBC < 1 /hpf (0-4); Urobilinogen,Urine NEG (NEG)
--- NOTE | 2018-12-07 15:54 | XRay Report ---
CLINICAL INFORMATION: Hypoxia COMPARISON: 12/06/2018 FINDINGS: Moderate cardiomegaly is unchanged. Mediastinum is unremarkable. Pulmonary vessels appear unremarkable. Right diaphragm is mildly elevated is mild atelectasis in the right base IMPRESSION: Moderate cardiomegaly - stable. No evidence of CHF Moderate elevation right diaphragm and minor right basilar atelectasis. Interpreted and Authenticated by: Luis E Nayak 12/07/18
[2018-12-07] MEDS: RIVAROXABAN 20 MG TABLET PO SCH (16:44)
[2018-12-07] MEDS: hydrOXYzine 25 MG TABLET PO PRN (21:35)
[2018-12-08] MEDS: HYDROmorphone 2 MG/ML VIAL IV PRN (03:33)
[2018-12-08] MEDS: 0.9 % SODIUM CHLORIDE 10 ML SYRINGE IV SCH ×4 (06:05→21:43)
[2018-12-08 06:45] LABS: Basophils # (Auto) 0 K/mcL (0.0-0.3); Basophils % (Auto) 0.2 % (0.0-2.0); Eosinophils # (Auto) 0.1 K/mcL (0.0-0.7); Eosinophils % (Auto) 0.8 % (0.0-7.0); Granulocytes % (Auto) 55.4 % (38.0-78.0); Lymphocytes # (Auto) 3.1 K/mcL (1.5-4.8); Lymphocytes % (Auto) 27.4 % (15.5-49.0); Mean Cell Volume 95.8 fL (80.0-100.0); Mean Corpuscular HGB Conc 32.7 g/dL (31.0-36.0); Monocytes # (Auto) 1.8 K/mcL (0.1-0.9); Monocytes % (Auto) 16.2 % (1.0-12.0); Platelet Count 287 K/mcL (140-440); RBC 3.38 M/mcL (4.00-5.20)
[2018-12-08 07:13] LABS: ALT/SGPT 11 U/l (0-40); Albumin 2.9 gm/dL (3.2-5.2); Albumin/Globulin Ratio 1.1 (1.0-2.3); Alkaline Phosphatase 57 U/L (39-117); Bilirubin,Direct < 0.2 mg/dL (0.0-0.3); Blood Urea Nitrogen 9 mg/dl (8-23); Gamma Glutamyl Transpeptidase 32 U/L (5-36); Uric Acid 5.5 mg/dL (2.5-8.0)
[2018-12-08] MEDS: DILTIAZEM 30 MG TABLET PO SCH ×4 (07:23→21:37)
[2018-12-08] MEDS: HYDROcodone/APAP 10/325MG TABLET PO PRN (07:23)
[2018-12-08] MEDS: POLYETHYLENE GLYCOL 3350 17 GM PACKET PO PRN (07:28)
[2018-12-08] MEDS: POTASSIUM CHLORIDE 20 MEQ TABLET PO SCH ×2 (09:36→17:16)
[2018-12-08] MEDS: FUROSEMIDE 40 MG TABLET PO SCH ×2 (09:36→21:37)
[2018-12-08] MEDS: DOCUSATE SODIUM 100 MG CAPSULE PO SCH ×2 (09:37→21:36)
[2018-12-08] MEDS: FLUTICASONE HFA 110MCG INHALER INH SCH ×2 (09:37→21:41)
[2018-12-08] MEDS: FAMOTIDINE 20 MG TABLET PO SCH ×2 (09:37→21:35)
[2018-12-08] MEDS: morphine 30 MG TAB.SR.12H PO SCH ×3 (09:37→21:36)
[2018-12-08] MEDS: LACTULOSE 20 GM/30 ML ORAL.SOL PO PRN (09:40)
--- NOTE | 2018-12-08 11:15 | Internal Med Progress Note ---
Medical - PN: Subj Patient information: Note initiated : 12/08/18 at 11:11 am Service Date, if different from initiated Date: [] Patient: Jennie Smith a 68 y/o F admitted on 12/04/18 for fall. Chief Complaint: [] Interval history: Ms. Smith is a 68 year old F Who got tangled up in the dog leash tripped down several steps falling onto her left leg. She did not hit her head. She had immediate pain to the leg. Nitro was called and brought her into the ER. Patient has a significant medical history including morbid obesity CHF which appears to be diastolic per history COPD chronic pain hypertension obstructive s leep apnea. Past several months she has been dealing with respiratory issues including pneumonia followed up with the upper respiratory tract infection and that she has sinusitis she recently started on nebulizer which improved her respiratory symptoms and she has not needed her albuterol since then. She is overall been feeling improved and recovering from her recent respiratory illness. she does have a a residual cough which is improving and is dry at this point. She does have some shortness of breath at baseline. She has chronic lymphedema and uses Lasix. 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 She is at increased risk perioperatively but she understands this, including risk of . However, a nonsurgical approach would be quite debilitating and would be worse off her. 12/05 Difficult to control pain last night. Started Dilaudid [employer] with little effect. Eventually went to fentanyl which improved her pain. Patient has a high pain tolerance takes significant amount of narcotics at home. There is more comfortable this morning. 12/06 Not sleeping very well, however she is in good spirits still. Her pain is relatively well controlled considering her baseline. No new complaints. Other than a sore throat. No cough or dyspnea. Nurse reports that she seems to desaturate a little bit with the Dilaudid at night. While I was examining her in the morning I titrated her oxygen to half a liter and she was still satting mid 90s. She does use home inhalers for COPD. 12/07 Pain control improving with fentanyl patch. Still need to titrate up. Slept be tter with hydroxyzine last night. Overall feeling better. Overnight events. On room air when I saw her this morning. 12/08 Patient seen examined no acute overnight issues, still rates pain at 9, appears quite comfortable for the level of pain she is stating, but does appear in moderate pain. Will start on scheduled PO tylenol 1gm TID d/c hydrocodone and switch to oxycodone to avoid excess tylenol d/c iv pain medications increase dose of fentanyl to 75mcg plan of care explained to the patient and she is in agreement, if pain still an issue, will get pain consult last BM was friday, will start on bowel regime, The patient was placed back on oxygen, cxr shows atelectasis, pt uses cpap at [facility], given she is predominantly bed bound now, she will likely need oxygen when in bed/ resting on full dose of anticoagulation. Pertinent ROS: Denies headache, dizziness Denies chest pain, palpitations Denies cough or shortness of breath Denies abdominal pain, nausea or vomiting. - Constitutional Vitals: Vital Signs Temp Pulse Resp BP Pulse Ox 99.0 F 115 H 18 115/69 90 12/08/18 07:31 12/08/18 07:31 12/08/18 07:31 12/08/18 07:31 12/08/18 07:31 Period Temp Pulse Resp BP Sys/Aguirre Pulse Ox Last 24 Hr 97.1 F-99.0 F 82-115 16-20 113-124/67-89 90-96 Intake and Output 12/07/18 12/08/18 12/08/18 21:59 05:59 13:59 Intake Total 800 Output Total 1450 3100 Balance -650 -3100 Weight 283 lb 8 oz Intake & Output: Intake & Output 12/07/18 12/08/18 12/08/18 21:59 05:59 13:59 Intake Total 800 Output Total 1450 3100 Balance -650 -3100 Weight 283 lb 8 oz Intake: Oral 800 Output: Urine Catheter Amount 3100 Void Amount 1450 Other: Urine Appearance Clear Urine Color Bright Yellow # Voids 1 Exam: Constitutional; Afebrile, cooperative, alert, not in distress. morbidly obese Respiratory system: Air Entry equal on both sides, mild insipratory crackles at the bases. CVS- Rate rhythm regular, S1,S2 heard, no gallop, no rub. Abdomen- Soft nontender abdomen, no organomegaly, no tenderness, no guarding or rigidity, INSPECTOR TOOL- AOOx3, moving all extremities, no gross focal deficit noted. Medical - PN: Obj Da - Labs CBC & Chem 7: 12/08/18 03:35 12/08/18 03:35 Labs: Abnormal Lab Results 12/08/18 12/08/18 12/07/18 03:35 03:35 11:47 WBC 11.3 H RBC 3.38 L Hgb 10.6 L Hct 32.4 L [place] % (Auto) 16.2 H [place] # (Auto) 1.8 H Chloride 92 L Carbon Dioxide 38 H Creatinine Glucose Calcium 8.2 L Total Protein 5.6 L Albumin 2.9 L Urine Protein Urine Occult Blood 0.03 A Urine RBC 12 H 12/07/18 12/07/18 12/07/18 07:57 03:25 03:25 WBC 13.2 H RBC 3.46 L Hgb 10.8 L Hct 33.0 L [place] % (Auto) [place] # (Auto) Chloride 93 L Carbon Dioxide 35 H Creatinine 0.5 L Glucose 132 H Calcium 8.3 L Total Protein Albumin Urine Protein 30 A Urine Occult Blood 0.2 A Urine RBC 48 H 12/06/18 12/06/18 03:32 03:32 WBC 11.9 H RBC 3.59 L Hgb 11.2 L Hct 34.1 L [place] % (Auto) 17.2 H [place] # (Auto) 2.0 H Chloride 90 L Carbon Dioxide 31 H Creatinine 0.5 L Glucose 135 H Calcium 8.5 L Total Protein 5.6 L Albumin 3.1 L Urine Protein Urine Occult Blood Urine RBC Meds: Medications Acetaminophen (Tylenol) 1,000 mg PO TID [facility] Albuterol/Ipratropium (Duoneb) 3 ml NEB Q4HP PRN PRN Reason: Shortness Of Breath Last Admin: 12/06/18 23:02 Dose: 3 ml Documented by: Diltiazem HCl (Cardizem) 60 mg PO [facility] Last Admin: 12/08/18 07:23 Dose: 60 mg Documented by: Docusate Sodium (Colace) 100 mg PO BID [facility] Last Admin: 12/08/18 09:37 Dose: 100 mg Documented by: Famotidine (Pepcid) 20 mg PO BID [facility] Last Admin: 12/08/18 09:37 Dose: 20 mg Documented by: Fentanyl (Duragesic) 75 mcg TOPICAL Q72H [facility] Fluticasone Propionate (Flovent Hfa 110mcg) 2 puff INH BID [facility] Last Admin: 12/08/18 09:37 Dose: 2 puff Documented by: Furosemide (Lasix) 40 mg PO BID [facility] Last Admin: 12/08/18 09:36 Dose: 40 mg Documented by: Hydroxyzine HCl (Atarax) 50 mg PO HSP PRN PRN Reason: Insomnia Last Admin: 12/07/18 21:35 Dose: 50 mg Documented by: Potassium Chloride 40 meq/ (Dextrose) 520 mls @ 130 mls/hr IV ONCE PRN PRN Reason: Potassium < 3 Magnesium Sulfate (Magnesium Sulfate) 2 gm in 50 mls @ 50 mls/hr IV ONCE PRN PRN Reason: Magnesium </= 1.6 Lactulose (Cephulac) 10 gm PO DAILYP PRN PRN Reason: Constipation Last Admin: 12/08/18 09:40 Dose: 10 gm Documented by: Methocarbamol (Robaxin) 750 mg PO QIDP PRN PRN Reason: Pain Last Admin: 12/07/18 14:40 Dose: 750 mg Documented by: Metoprolol Tartrate (Lopressor) 5 mg IV Q2HP PRN PRN Reason: Tachyarrhythmias HR>110 Morphine Sulfate (Ms Contin) 90 mg PO BID [facility] Last Admin: 12/08/18 09:37 Dose: 90 mg Documented by: Morphine Sulfate (Ms Contin) 60 mg PO DAILY@1200 [facility] Last Admin: 12/07/18 13:25 Dose: 60 mg Documented by: Ondansetron HCl (Zofran) 4 mg IV Q4HP PRN PRN Reason: Nausea And Vomiting Last Admin: 12/04/18 22:57 Dose: 4 mg Documented by: Ondansetron HCl (Zofran Odt) 4 mg SL Q4HP PRN PRN Reason: Nausea And Vomiting Oxycodone HCl (Roxicodone) 10 - 20 mg PO Q4HP PRN PRN Reason: PAIN LEVEL 3-6 Polyethylene Glycol (Miralax) 17 gm PO DAILYP PRN PRN Reason: Constipation Last Admin: 12/08/18 07:28 Dose: 17 gm Documented by: [facility] Last Admin: 12/08/18 09:36 Dose: 20 meq Documented by: Potassium Chloride (Kdur) 40 meq PO ONCE PRN PRN Reason: Potssium is 3-3.5 Potassium Chloride (Kdur) 40 meq PO ONCE PRN PRN Reason: Potassium < 3 Prochlorperazine (Compazine) 10 mg IV Q6HP PRN PRN Reason: Nausea And Vomiting Promethazine HCl (Phenergan) 0 mg PO Q6HP PRN PRN Reason: Nausea And Vomiting Rivaroxaban (Xarelto) 20 mg PO DAILY@1800 [facility] Last Admin: 12/07/18 16:44 Dose: 20 mg Documented by: Senna (Senokot) 2 tab PO HSP PRN PRN Reason: Constipation Last Admin: 12/07/18 00:04 Dose: 2 tab Documented by: Sodium Chloride (Saline Flush) 10 ml IV Q8 [facility] Last Admin: 12/08/18 06:05 Dose: 10 ml Documented by: Throat Lozenges (Cepacol) 1 lozenge PO PRN PRN PRN Reason: Sore Throat Medical - PN: A/P - Time Spent With Patient Total time spent is greater than 50% in coordination of care (as documented) at patient's floor/unit and/or counseling patient: - Narrative A/P Narrative: A: *Left distal femur fracture: s/p ORIF (12/04) *History of A. fib: On diltiazem and Xarelto, follows Dr. Daley *History of CHF, appears to be diastolic per old notes and the fact that she is on diltiazem *Morbid obesity: *COPD/asthma: On inhalers, not on home oxygen *BRYAN on CPAP: *Chronic pain, back and knees on heavy dose of narc: Follows with Dr. herron *GERD: *HTN: *Leukocytosis: ?reactive. Afebrile, no bandemia, does not appear toxic. -check UA, CXR no PNA, basilar atelectasis P: -Patient at increased perioperative risk given her comorbidities, patient understands risks -Monitor I's and O's and daily weights -Continue home Dilt, -Pain management with home regimen, d/c IV pain meds, d/c hydrocodone, start on oxycodone, increase fentanyl to 75mcg, pt did use high does of IV pain medication yesterday, montor on tele given high does of narcotic being used. if pain remains an issue, will consult pain management. -cont home lasix -IS, prn nebs -pt/ot -UA pending -ppx: restarted Xarelto/Pepcid Medical - PN: Qual - VTE Deep Vein Thrombosis/Pulmonary Embolism Present on Admission: No
[2018-12-08] MEDS ORDERED: MAGNESIUM CITRATE 300 ML ORAL.SOL PO ONE (11:26)
[2018-12-08] MEDS ORDERED: fentaNYL 50 MCG PATCH TOPICAL ONE (11:30)
[2018-12-08] MEDS: SENNOSIDES 1 TABLET PO SCH ×2 (12:27→21:36)
[2018-12-08] MEDS: ACETAMINOPHEN 500 MG TABLET PO SCH ×3 (12:30→21:36)
[2018-12-08] MEDS: RIVAROXABAN 20 MG TABLET PO SCH (17:16)
[2018-12-08] MEDS: oxyCODONE HCL 5 MG TABLET PO PRN (17:17)
[2018-12-08] MEDS: hydrOXYzine 25 MG TABLET PO PRN (21:56)
[2018-12-09] MEDS: oxyCODONE HCL 5 MG TABLET PO PRN ×2 (04:34→11:46)
[2018-12-09] MEDS: 0.9 % SODIUM CHLORIDE 10 ML SYRINGE IV SCH (06:00)
[2018-12-09 06:36] LABS: Basophils # (Auto) 0.1 K/mcL (0.0-0.3); Basophils % (Auto) 0.7 % (0.0-2.0); Eosinophils # (Auto) 0.2 K/mcL (0.0-0.7); Eosinophils % (Auto) 2.7 % (0.0-7.0); Granulocytes % (Auto) 55.9 % (38.0-78.0); Lymphocytes # (Auto) 2.2 K/mcL (1.5-4.8); Mean Cell Volume 92.9 fL (80.0-100.0); Mean Corpuscular HGB Conc 33.2 g/dL (31.0-36.0); Monocytes # (Auto) 1.5 K/mcL (0.1-0.9); Monocytes % (Auto) 16.7 % (1.0-12.0); Platelet Count 323 K/mcL (140-440); RBC 3.48 M/mcL (4.00-5.20); Red Cell Distribution Width 12.2 % (11.5-14.5)
[2018-12-09 06:37] LABS: ALT/SGPT 12 U/l (0-40); Albumin 2.6 gm/dL (3.2-5.2); Albumin/Globulin Ratio 0.9 (1.0-2.3); Alkaline Phosphatase 55 U/L (39-117); Bilirubin,Direct < 0.2 mg/dL (0.0-0.3); Blood Urea Nitrogen 12 mg/dl (8-23); Gamma Glutamyl Transpeptidase 33 U/L (5-36); Uric Acid 5.3 mg/dL (2.5-8.0)
[2018-12-09] MEDS: POLYETHYLENE GLYCOL 3350 17 GM PACKET PO PRN (09:04)
[2018-12-09] MEDS: LACTULOSE 20 GM/30 ML ORAL.SOL PO PRN (09:04)
[2018-12-09] MEDS: FAMOTIDINE 20 MG TABLET PO SCH (09:07)
[2018-12-09] MEDS: ACETAMINOPHEN 500 MG TABLET PO SCH (09:08)
[2018-12-09] MEDS: POTASSIUM CHLORIDE 20 MEQ TABLET PO SCH (09:08)
[2018-12-09] MEDS: DOCUSATE SODIUM 100 MG CAPSULE PO SCH (09:08)
[2018-12-09] MEDS: DILTIAZEM 30 MG TABLET PO SCH ×2 (09:10→11:47)
[2018-12-09] MEDS: FLUTICASONE HFA 110MCG INHALER INH SCH (09:10)
[2018-12-09] MEDS: FUROSEMIDE 40 MG TABLET PO SCH (09:14)
[2018-12-09] MEDS: morphine 30 MG TAB.SR.12H PO SCH ×2 (09:14→11:50)
[2018-12-09] MEDS: SENNOSIDES 1 TABLET PO SCH (09:14)
[2018-12-09] MEDS ORDERED: BISACODYL 10 MG SUPP.RECT PR ONE (09:21)
[2018-12-09] MEDS: METHYLNALTREXONE BROMIDE 12 MG/0.6 ML SYRINGE SC SCH ×2 (10:12→11:36)
--- NOTE | 2018-12-09 10:51 | Discharge Summary ---
Medical - DS: Prov Patient information: Note initiated : 12/09/18 at 10:40 am Service Date, if different from initiated Date: [] Patient: Jennie Smith 68 y/o F admitted on 12/04/18 for fall. Chief Complaint: [] Date of admission: 12/04/18 17:53 Discharge date: 12/09/18 Primary care physician: David Bettencourt Consults: 12/04/18 Consult to Physician [CONS] Stat Comment: Consulting Provider: Rocael Vega Reason For Exam: Physician to Consult Consult to Physician [CONS] Stat Comment: Consulting Provider: Tito Cross Reason For Exam: Physician to Consult Discharging clinician: Yesenia Beatty Medical - DS: Meds - Discharge Medications Prescriptions: Magnesium Citrate [Citrate of Magnesia] 300 ml PO Q3DP PRN #3 dose PRN Reason: Constipation fentaNYL [Duragesic] 50 mcg TOPICAL Q72H #7 patch Methocarbamol [Robaxin] 750 mg PO QIDP PRN #60 tab PRN Reason: Pain/muscle spasm morphine SULFATE [Briana] 100 mg PO BID #16 cap morphine SULFATE [Briana] 60 mg PO DAILY #7 cap.er.pel oxyCODONE HCL [Roxicodone] 10 - 20 mg PO Q4HP PRN #60 tab PRN Reason: Pain Active and Home Medications: Home Medications Auto-Titrating CPAP MISCELLANE .COMPLEX 04/18/15 [History Confirmed 12/04/18 Last Taken Unknown] aspirin 81 mg tablet,delayed release 81 mg PO QDAY tab 04/18/15 [History Confirmed 12/04/18 Last Taken Unknown] hydrocodone 10 mg-acetaminophen 325 mg tablet See Dose Instructions PO .Q4-6H PRN tab 04/18/15 [History Confirmed 12/04/18 Last Taken Unknown] morphine ER 100 mg capsule,extended release pellets 100 mg PO .COMPLEX cap 04/18/15 [History Confirmed 12/04/18 Last Taken Unknown] multivitamin tablet 1 tab PO .COMPLEX tab 04/18/15 [History Confirmed 12/04/18 Last Taken Unknown] potassium chloride ER 20 mEq tablet,extended release 20 meq PO .COMPLEX tab 04/18/15 [History Confirmed 12/04/18 Last Taken Unknown] rivaroxaban 20 mg tablet 20 mg PO .COMPLEX tab 04/18/15 [History Confirmed 12/04/18 Last Taken Unknown] CUSTOM FIT COMPRESSION STOCKINGS #1 each 10/30/16 [Rx Confirmed 12/04/18 Last Taken Unknown] FULL SIZE EGG CRATE MATTRESS #1 each 10/30/16 [Rx Confirmed 12/04/18 Last Taken Unknown] diltiazem 60 mg tablet 60 mg PO QID 90 Days #360 tab 11/05/16 [Rx Confirmed 12/04/18 Last Taken Unknown] Foam Block #1 each 12/13/16 [Rx Confirmed 12/04/18 Last Taken Unknown] disposable gloves See Dose Instructions .ROUTE .MEDSUPPLY #100 each 07/28/17 [Rx Confirmed 12/04/18 Last Taken Unknown] lisinopril 2.5 mg tablet 2.5 mg PO BID #180 tab 03/23/18 [Rx Confirmed 12/04/18 Last Taken Unknown] furosemide 40 mg tablet 40 mg PO BID #180 tab 06/23/18 [Rx Confirmed 12/04/18 Last Taken Unknown] albuterol sulfate HFA 90 mcg/actuation aerosol inhaler See Rx Instructions .ROUTE .COMPLEX #54 gram 10/23/18 [Rx Confirmed 12/04/18 Last Taken Unknown] Spacer for ventolin inhaler #1 ea 11/02/18 [Rx Confirmed 12/04/18 Last Taken Unknown] fluticasone propionate 110 mcg/actuation HFA aerosol inhaler 4 puff INHALATION BID #36 g 11/02/18 [Rx Confirmed 12/04/18 Last Taken Unknown] nebulizer accessories kit See Dose Instructions .ROUTE .MEDSUPPLY #1 each 11/03/18 [Rx Confirmed 12/04/18 Last Taken Unknown] nebulizers See Dose Instructions .ROUTE .MEDSUPPLY #1 each 11/03/18 [Rx Confirmed 12/04/18 Last Taken Unknown] ipratropium-albuterol 0.5 mg-3 mg(2.5 mg base)/3 mL nebulization soln 3 ml INHALATION QID #180 ml 11/13/18 [Rx Confirmed 12/04/18 Last Taken Unknown] Methocarbamol [Robaxin] 750 mg PO HSP 12/04/18 [History Confirmed 12/04/18 Last Taken Unknown] Medical - DS: Hosp Hospital course: MMs. Smith is a 68 year old F Who got tangled up in the dog leash tripped down several steps falling onto her left leg. She did not hit her head. She had immediate pain to the leg. Nitro was called and brought her into the ER. Patient has a significant medical history including morbid obesity CHF which appears to be diastolic per history COPD chronic pain hypertension obstructive sleep apnea. Past several months she has been dealing with respiratory issues including pneumonia followed up with the upper respiratory tract infection and that she has sinusitis she recently started on nebulizer which improved her respiratory symptoms and she has not needed her albuterol since then. She is overall been feeling improved and recovering from her recent respiratory illness. she does have a a residual cough which is improving and is dry at this point. She does have some shortness of breath at baseline. She has chronic lymphedema and uses Lasix. 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 She is at increased risk perioperatively but she understands this, including risk of . However, a nonsurgical approach would be quite debilitating and would be worse off her. 12/05 Difficult to control pain last night. Started Dilaudid [employer] with little effect. Eventually went to fentanyl which improved her pain. Patient has a high pain tolerance takes significant amount of narcotics at home. There is more comforta ble this morning. 12/06 Not sleeping very well, however she is in good spirits still. Her pain is relatively well controlled considering her baseline. No new complaints. Other than a sore throat. No cough or dyspnea. Nurse reports that she seems to desaturate a little bit with the Dilaudid at night. While I was examining her in the morning I titrated her oxygen to half a liter and she was still satting mid 90s. She does use home inhalers for COPD. 12/07 Pain control improving with fentanyl patch. Still need to titrate up. Slept better with hydroxyzine last night. Overall feeling better. Overnight events. On room air when I saw her this morning. 12/08 Patient seen examined no acute overnight issues, still rates pain at 9, appears quite comfortable for the level of pain she is stating, but does appear in moderate pain. Will start on scheduled PO tylenol 1gm TID d/c hydrocodone and switch to oxycodone to avoid excess tylenol d/c iv pain medications increase dose of fentanyl to 75mcg plan of care explained to the patient and she is in agreement, if pain still an issue, will get pain consult last BM was friday, will start on bowel regime, The patient was placed back on oxygen, cxr shows atelectasis, pt uses cpap at baseline, given she is predominantly bed bound now, she will likely need oxygen when in bed/ resting on full dose of anticoagulation. 12/09 patient seen examined, no acute overnight issues, tolerated oral meds well, still feels weak and debilitated. She had a bm today Stable for discharge to SNF AT the time of discharge, her pain regime is morphine 100mg bid, morphine 60mg at noon, fentanyl patch 50mcg, oxycodone 10-20mg q4hp, tylenol 1000mg scheduled, and methocarbamol 750mg qid prn. The patient was monitored on these high does for 24 hrs, and she did not exhibit any signs of cardioresp compromise, She will be advised to follow up with pain clinic as outpatient , (she does havea pain physician) Discharge diagnosis: Femur fracture, - Time Spent with Patient Total time spent providing and/or coordinating discharge services: Greater than 30 minutes Medical - DS: Exam - Constitutional Vitals: Vital Signs Temp Pulse Resp BP BP Pulse Ox 12/09/18 08:00 98.9 F 119 H 17 118/75 93 12/09/18 04:27 97 F 17 104/72 91 12/09/18 04:13 15 90 12/09/18 00:54 13 92 12/09/18 00:33 15 100/63 91 12/09/18 00:00 96.6 F L 12/08/18 20:20 20 118/73 92 12/08/18 20:00 99.5 F H 18 118/73 93 12/08/18 16:00 97.9 F 18 105/74 94 12/08/18 15:36 23 H 105/74 94 12/08/18 12:00 97.7 F 23 H 116/74 92 12/08/18 11:48 22 116/74 92 Intake and Output 12/08/18 12/09/18 12/09/18 21:59 05:59 13:59 Intake Total 1310 360 Output Total 2650 1300 Balance -1340 -940 Intake: Oral 1310 360 Output: Urine Catheter Amount 2650 1300 Other: Meal Dinner Percent of Meal Consumed 100% Feeding Ability Assist with Tray Set Up Urine Appearance Clear Urine Color Dark Yellow Dark Yellow Urine Odor Normal Strong Weight 275 lb Additional comments: Constitutional; Afebrile, cooperative, alert, not in distress. morbidly obese Respiratory system: Air Entry equal on both sides, No crackles or wheezing, no rhonchi. CVS- Rate rhythm regular, S1,S2 heard, no gallop, no rub. Abdomen- Soft nontender abdomen, no organomegaly, no tenderness, no guarding or rigidity, COGNOS ARCHITECT- AOOx3, moving all extremities, no gross focal deficit noted. Medical - DS: Data Labs on day of discharge: Labs from last 24 hours 12/09/18 12/09/18 03:35 03:35 WBC 9.1 RBC 3.48 L Hgb 10.7 L Hct 32.3 L MCV 92.9 MCH 30.8 MCHC 33.2 RDW 12.2 Plt Count 323 MPV 7.9 Gran % 55.9 Lymph % (Auto) 24.0 Miller % (Auto) 16.7 H Eos % (Auto) 2.7 Baso % (Auto) 0.7 Gran # 5.1 Lymph # (Auto) 2.2 Miller # (Auto) 1.5 H Eos # (Auto) 0.2 Baso # (Auto) 0.1 Sodium 137 Potassium 3.7 Chloride 91 L Carbon Dioxide 39 H Anion Gap 7.0 L BUN 12 Creatinine 0.5 L GFR Calculation 101 Glucose 114 H Uric Acid 5.3 Calcium 8.6 Phosphorus 3.3 Magnesium 2.4 Total Bilirubin 0.6 Direct Bilirubin < 0.2 GGT 33 AST 25 ALT 12 Alkaline Phosphatase 55 Lactate Dehydrogenase 198 Total Protein 5.4 L Albumin 2.6 L Globulin 2.8 Albumin/Globulin Ratio 0.9 L Triglycerides 47 Medical - DS: A/P - Patient/Caregiver Discharge Instructions Activity: as per physical therapy, wear oxygen at all times Diet: Cardiac Additional Instructions: Follow up with Ortho as scheduled, Post surgery precautions as per ortho Weight bearing as per Ortho Rehab regime as per Ortho Follow up with your Pain provider, Dr Pantoja in 1-2 weeks for management of acute on chr pain Go to the ER if worsening symptoms chest pain, shortness of breath or any other acute concern. - Follow up Plan Follow up with: David Bettencourt PA-C [Primary Care Provider] - Disposition: Xfer SNF Prognosis: Fair Rehab Potential: Fair I certify that the patient requires SNF services: Yes Overall status at discharge: patient is progressing back to baseline Medical - DS: Qual - VTE Deep Vein Thrombosis/Pulmonary Embolism Present on Admission: No
[2018-12-10] MEDS ORDERED: fentaNYL 75 MCG PATCH TOPICAL SCH (10:00)
== END 2018-12-09 13:00 | DRG 481 ==
LOC: ED 14:07 → ICU 17:53
PROVIDERS: ADMIT Internal Medicine; ATTEND Internal Medicine

== ENCOUNTER 2022-05-24 21:35 | Inpatient (IN) ==
[2022-05-24 22:14] LABS: POC Calcium, Ionized 1.12 (1.16-1.32); POC Creatinine 0.6 (0.6-1.2); POC Potassium 3.7 (3.3-5.1)
[2022-05-24] MEDS ORDERED: cefTRIAXone 1 GM VIAL IV ONE (22:42)
[2022-05-24] MEDS ORDERED: 0.9 % SODIUM CHLORIDE 500 ML IV ONE (22:42)
[2022-05-24] MEDS ORDERED: methylPREDNISolone SOD SUCC 125 MG/2 ML VIAL IV ONE (22:42)
--- NOTE | 2022-05-24 22:46 | Emergency Department Note ---
SOB HPI General Chief Complaint: Shortness of Breath/Dyspnea Stated Complaint: SOB 2 days Time Seen by Provider: 05/24/22 22:25 Source: patient and family Mode of arrival: wheelchair Limitations: no limitations History of Present Illness HPI Narrative: Narrative: 71-year-old female with past medical history of COPD, pneumonia, A Fib and as below presents with shortness of breath, cough, shortness of breath, wheezing fever and chills for 2 days no headache dizziness chest pain abdominal pain nausea vomiting constipation diarrhea.in ER O2 84%. Which improved to 96% 2 L O2. Related Data Home Medications Medication Instructions Recorded Confirmed multivitamin 1 tab PO .COMPLEX 04/18/15 04/01/22 potassium chloride 20 mEq 20 meq PO .COMPLEX 04/18/15 04/01/22 tablet,extended release rivaroxaban 20 mg tablet 20 mg PO .COMPLEX 04/18/15 04/01/22 polyethylene glycol 3350 17 See Rx Instructions PO .COMPLEX 12/22/19 04/01/22 gram/dose oral powder (Miralax) Centrum Silver, Calcium 600mg, Vit PO 07/19/20 04/01/22 D3 800IU Albuterol inhaler inhalation PRN 07/31/21 04/01/22 Previous Rx's Medication Instructions Recorded diltiazem HCl 60 mg tablet 60 mg PO QID 90 days #360 tabs 11/05/16 sennosides 8.6 mg tablet 2 tab PO BID 12/09/18 albuterol sulfate 90 mcg/actuation See Rx Instructions .Route 01/18/19 aerosol inhaler (Ventolin HFA) .COMPLEX #54 grams naloxone 4 mg/actuation nasal 1 spray intranasal .COMPLEX #2 ea 10/01/21 spray (Narcan) ondansetron 4 mg disintegrating 4 mg PO Q8H PRN nausea and 02/18/22 tablet vomiting #20 tabs fluticasone propionate 110 2 puff inhalation BID 90 days #72 03/04/22 mcg/actuation HFA aerosol inhaler grams ipratropium 0.5 mg-albuterol 3 mg 3 ml inhalation QID #360 mL 03/04/22 (2.5 mg base)/3 mL nebulization soln lisinopril 2.5 mg tablet 2.5 mg PO BID 90 days #180 tabs 03/04/22 furosemide 40 mg tablet 40 mg PO BID 90 days #200 tabs 03/11/22 methocarbamol 750 mg tablet 750 mg PO TID PRN Pain/muscle 03/27/22 spasm #90 tabs hydrocodone 10 mg-acetaminophen 1 - 2 tab PO Q4H PRN pain #240 tabs 04/01/22 325 mg tablet morphine 100 mg tablet,extended 100 mg PO Q12H #60 tabs 04/01/22 release (MS Contin) morphine 60 mg tablet,extended 60 mg PO QDAY #30 tabs 04/01/22 release (MS Contin) Allergies Allergy/AdvReac Type Severity Reaction Status Date / Time ketorolac [From Toradol] Allergy Mild Hives Verified 05/24/22 21:43 gabapentin [From Neurontin] Allergy Unknown gi upset Verified 05/24/22 21:43 lorazepam Allergy Unknown Unknown Verified 05/24/22 21:43 propoxyphene [From Darvon] Allergy Unknown unknown Verified 05/24/22 21:43 alendronate sodium AdvReac Intermediate Dyspepsia Verified 05/24/22 21:43 NSAIDS (Non-Steroidal AdvReac Intermediate Gastritis/U Verified 05/24/22 21:43 Anti-Inflamma lcer Zolpidem [From Ambien] AdvReac Intermediate "Made me Verified 05/24/22 21:43 insane" atenolol AdvReac Mild "Feel Verified 05/24/22 21:43 strange" hydrochlorothiazide AdvReac Mild Dizziness Verified 05/24/22 21:43 influenza virus vaccine, AdvReac Unknown Other Verified 05/24/22 21:43 specific [Influenza Virus Vacc,Specific] Review of Systems ROS ROS Narrative: Narrative: All systems ED: reviewed and negative except as stated. [facility] Narrative Patient History Narrative: Narrative: Medical/Surgical/Family History All Active Problems (Updated 05/25/22 @ 00:23 by Noah Salas MD) Asthma exacerbation in COPD (Acute) Hypoxia (Acute) Pneumonia (Acute) Vertigo (Acute) Medicare annual wellness visit, initial (Acute) Encounter for removal of sutures (Acute) Fall (Acute) Laceration of face (Acute) Acute pain of right knee (Acute) Back pain (Acute) Leg wound, left (Acute) Osteoporosis (Chronic) Acute pain of left wrist (Acute) Left wrist sprain (Acute) Fall (on) (from) other stairs and steps, initial encounter (Acute) Chronic use of opiate drug for therapeutic purpose (Chronic) Left leg pain (Chronic) Holosystolic murmur (Chronic) Chronic pain (Chronic) Encounter for long-term (current) use of other medications (Chronic) Spondylosis without myelopathy or radiculopathy, lumbar region (Chronic) Chronic, continuous use of opioids (Chronic) S/P ORIF (open reduction internal fixation) fracture (Chronic) Valvular heart disease (Chronic) Chronic anticoagulation (Chronic) 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) Chronic low back pain (Chronic) History of tonsillectomy (Chronic) History of total splenectomy (Chronic) History of surgery (Chronic) History of laminectomy (Chronic) History of knee replacement procedure of right knee (Chronic) History of hysterectomy (Chronic) History of cholecystectomy (Chronic) History of cardiac catheterization (Chronic) History of back surgery (Chronic) Status post arthroscopic surgery of right knee (Chronic) History of appendectomy (Chronic) History of adenoidectomy (Chronic) Right bundle branch block (Chronic) Osteoarthrosis, localized, primary, involving lower leg (Chronic) Obstructive sleep apnea (Chronic 05/11/14) Obesity (Chronic) Myocardial infarction, old (Chronic) Lymphedema (Chronic) Insomnia (Chronic) Hypertension, essential (Chronic) Gout (Chronic) Gastroparesis (Chronic) Gastroesophageal reflux (Chronic) Edema (Chronic) Degenerative disc disease (Chronic) Coronary artery disease (Chronic) History of colonic polyps (Chronic) Chronic pain syndrome (Chronic) Atrial fibrillation (Chronic 01/24/14) Asthma (Chronic) Medical History Asthma Asthma exacerbation Atrial fibrillation (01/24/14) Chronic anticoagulation Chronic low back pain Chronic pain Chronic pain syndrome Left shoulder Chronic use of opiate drug for therapeutic purpose Chronic, continuous use of opioids Congestive heart failure Coronary artery disease Degenerative disc disease Edema Lower extremity edema Encounter for long-term (current) use of other medications Encounter for removal of sutures Femur fracture, left Gastroesophageal reflux Gastroparesis Gout Hepatitis C, chronic History of colonic polyps Holosystolic murmur Hypertension, essential Insomnia Left leg pain Leg wound, left Lymphedema lower exremity Malignant lymphoma Stage IV marginal zone, 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 Pneumonia Right bundle branch block Spondylosis without myelopathy or radiculopathy, lumbar region Valvular heart disease Mitral regurgitation, tricuspid regurgitation Varicose veins of both lower extremities Viral syndrome Surgical History History of adenoidectomy 1956 History of appendectomy 1994 History of back surgery 1977, 2008 x 2 lumbar spine after falls and fractures, granuloma removed from spine History of cardiac catheterization 04/23 History of cholecystectomy 2003 History of hysterectomy 1996 "for endometriosis" History of knee replacement procedure of right knee 1987, TRK replacement revision August [address] Vega History of laminectomy 1981 History of surgery 2002 Pain pump implant for chronic back pain History of surgery TF JANIE #1 Left S1 w/sed 04-07-12 Catheter Dye Study 08/27/06 History of tonsillectomy 1956 History of total splenectomy 2002 S/P ORIF (open reduction internal fixation) fracture distal left femur 11/2018 Dr. Vega Status post arthroscopic surgery of right knee multiple, not listed which side(s) Family History Maternal Grandmother Coronary artery disease Hypertension Mother Coronary artery disease Pulmonary emphysema Family history of diabetes mellitus Family history of tuberculosis Sudden , Onset Age: 60 non-specific Tobacco abuse Heavy smoker, at age 60 Mother Cardiac disease Social History Smoking Status: Never smoker Alcohol Intake Frequency: does not drink Substance Use: does not use Exam Narrative Narrative: Narrative: General Limitations: no limitations General appearance: Present alert and in no apparent distress Head Head: Present atraumatic and normocephalic Respiratory Respiratory: Present wheezes (bilateral) Cardiovascular Cardiovascular: Present irregular rhythm Adbominal Abdominal: Present soft and normal bowel sounds; Absent tenderness or organom egaly Extremities Extremities: Absent pedal edema, cyanosis or clubbing Neurological Neurological: Present alert and oriented X3 Course Course Course Narrative: CBC, CMP, troponin, UA, COVID test, chest x-ray were obtained. WBC count 13.4 with left shift. Chest x-ray consistent with right lower lung pneumonia. Official report pending. Troponin is negative. Patient is still short of breath after treatment with Solu-Medrol. DuoNeb and IV normal saline. Patient will be admitted to [facility] for further treatment with IV Solu-Medrol and antibiotics as discussed with hospitalist Dr. Bone. Initial hospital admission orders were placed. Vital Signs Vital signs: Vital Signs Temperature 99.3 F H 05/24/22 21:36 Pulse Rate 112 H 05/24/22 21:36 Respiratory Rate 26 H 05/24/22 21:36 Blood Pressure 134/82 05/24/22 21:36 Pulse Oximetry (%) 96 05/24/22 21:36 Oxygen Delivery Method 05/24/22 21:36 Temperature 99.3 F H 05/24/22 21:36 Pulse Rate 107 H 05/25/22 00:01 Respiratory Rate 21 05/25/22 00:01 Blood Pressure 137/89 05/25/22 00:01 Pulse Oximetry (%) 93 05/25/22 00:01 Oxygen Delivery Method 05/24/22 23:53 Oxygen Flow Rate (L/min) 2 05/24/22 23:53 MDM MDM Narrative Medical decision making narrative: Narrative: Lab Data Result diagrams: 05/24/22 22:29 05/24/22 22:29 Labs: Lab Results 05/24/22 05/24/22 05/24/22 Range/Units 22:09 22:10 22:29 WBC 13.4 H (4.5-11.0) K/mcL RBC 4.36 (3.59-5.38) M/mcL Hgb 14.1 (11.2-15.7) g/dL Hct 41.5 (34.1-44.9) % POC Hct 45.0 (36-48) MCV 95.2 (80.0-100.0) fL MCH 32.3 (26.0-34.0) pg MCHC 34.0 (31.0-36.0) g/dL RDW 12.5 (11.5-14.5) % Plt Count 287 (140-440) K/mcL MPV 9.0 (7.4-10.4) fL Immature Gran % (Auto) 0.4 (0.0-0.5) % Neut % (Auto) 78.8 H (38.0-78.0) % Lymph % (Auto) 8.2 L (15.5-49.0) % [place] % (Auto) 12.1 H (1.0-12.0) % Eos % (Auto) 0.1 (0.0-7.0) % Baso % (Auto) 0.4 (0.0-2.0) % Lymph # (Auto) 1.10 L (1.50-4.80) K/mcL [place] # (Auto) 1.62 H (0.10-0.90) K/mcL Eos # (Auto) 0.02 (0.00-0.70) K/mcL Baso # (Auto) 0.05 (0.00-0.30) K/mcL Immature Gran # 0.06 H (0.00-0.05) K/mcl Absolute Neutrophils 10.56 H (1.80-8.00) K/mcL POC VBG pH 7.44 H (7.32-7.42) POC VBG pCO2 at Temp 55.3 H (41-51) POC VBG pO2 30 (25-40) POC VBG HCO3 37.3 H (24-28) POC VBG Total CO2 39.0 H (25-29) POC Venous O2 Sat 59.0 (40-70) POC VBG Base Excess 13.0 H* (-2-2) VBG Lactic Acid 1.0 (0.5-2) POC Sodium 133 (133-145) Sodium (133-145) mmol/L POC Potassium 3.7 (3.3-5.1) Potassium (3.3-5.1) mmol/L POC Chloride 88 L (96-108) Chloride (96-108) mmol/L Carbon Dioxide (22-30) mmol/L POC Total CO2 35.0 H (22-30) Anion Gap (8.0-16.0) POC BUN 7 (6-20) BUN (8-23) mg/dL Creatinine (0.6-1.1) mg/dL POC Creatinine 0.6 (0.6-1.2) GFR Calculation Glucose (70-105) mg/dL POC Glucose 131 H (70-105) Calcium (8.6-10.4) mg/dL POC WB Ioniz Calcium 1.12 L (1.16-1.32) Total Bilirubin (0.1-1.0) mg/dL AST (<32) U/L ALT (<40) U/L Alkaline Phosphatase (39-117) U/L Total Protein (5.9-8.4) gm/dL Albumin (3.2-5.2) gm/dL Globulin (2.2-3.7) gm/dL Albumin/Globulin Ratio (1.0-2.3) POC Troponin I (0.02-0.08) 05/24/22 05/24/22 Range/Units 22:29 22:52 WBC (4.5-11.0) K/mcL RBC (3.59-5.38) M/mcL Hgb (11.2-15.7) g/dL Hct (34.1-44.9) % POC Hct (36-48) MCV (80.0-100.0) fL MCH (26.0-34.0) pg MCHC (31.0-36.0) g/dL RDW (11.5-14.5) % Plt Count (140-440) K/mcL MPV (7.4-10.4) fL Immature Gran % (Auto) (0.0-0.5) % Neut % (Auto) (38.0-78.0) % Lymph % (Auto) (15.5-49.0) % [place] % (Auto) (1.0-12.0) % Eos % (Auto) (0.0-7.0) % Baso % (Auto) (0.0-2.0) % Lymph # (Auto) (1.50-4.80) K/mcL [place] # (Auto) (0.10-0.90) K/mcL Eos # (Auto) (0.00-0.70) K/mcL Baso # (Auto) (0.00-0.30) K/mcL Immature Gran # (0.00-0.05) K/mcl Absolute Neutrophils (1.80-8.00) K/mcL POC VBG pH (7.32-7.42) POC VBG pCO2 at Temp (41-51) POC VBG pO2 (25-40) POC VBG HCO3 (24-28) POC VBG Total CO2 (25-29) POC Venous O2 Sat (40-70) POC VBG Base Excess (-2-2) VBG Lactic Acid (0.5-2) POC Sodium (133-145) Sodium 134 (133-145) mmol/L POC Potassium (3.3-5.1) Potassium 3.7 (3.3-5.1) mmol/L POC Chloride (96-108) Chloride 90 L (96-108) mmol/L Carbon Dioxide 32 H (22-30) mmol/L POC Total CO2 (22-30) Anion Gap 12.0 (8.0-16.0) POC BUN (6-20) BUN 7 L (8-23) mg/dL Creatinine 0.6 (0.6-1.1) mg/dL POC Creatinine (0.6-1.2) GFR Calculation 92 Glucose 123 H (70-105) mg/dL POC Glucose (70-105) Calcium 9.4 (8.6-10.4) mg/dL POC WB Ioniz Calcium (1.16-1.32) Total Bilirubin 0.7 (0.1-1.0) mg/dL AST 29 (<32) U/L ALT 16 (<40) U/L Alkaline Phosphatase 94 (39-117) U/L Total Protein 7.0 (5.9-8.4) gm/dL Albumin 4.5 (3.2-5.2) gm/dL Globulin 2.5 (2.2-3.7) gm/dL Albumin/Globulin Ratio 1.8 (1.0-2.3) POC Troponin I 0.01 L (0.02-0.08) ED POC Tests ED POC Tests: ADELINE - SARS Antigen Negative Discharge Plan Patient/Caregiver Discharge Instructions Pt seen by [employer]/PA only: No Clinical Impression: Asthma exacerbation in COPD, Hypoxia, Pneumonia Patient Disposition: Xfer As Inpt ([facility]) Condition: Fair Follow up with: David Bettencourt PAJannetC [Primary Care Provider] - Prescriptions: No Action diltiazem HCl 60 mg tablet 60 mg PO QID 90 Days Qty: 360 0RF albuterol sulfate [Ventolin HFA] 90 mcg/actuation HFA aerosol inhaler See Rx Instructions .ROUTE .COMPLEX Qty: 54 0RF Dose Instruction: INHALE 2 PUFFS BY INHALATION ROUTE EVERY 4-6 HOURS NEEDED FOR COUGH, WHEEZE, SHORTNESS OF BREATH. Rx Instructions: INHALE 2 PUFFS BY INHALATION ROUTE EVERY 4-6 HOURS NEEDED FOR COUGH, WHEEZE, SHORTNESS OF BREATH. ipratropium-albuterol 0.5 mg-3 mg(2.5 mg base)/3 mL solution for nebulization 3 ml INHALATION QID Qty: 360 1RF lisinopril 2.5 mg tablet 2.5 mg PO BID 90 Days Qty: 180 3RF fluticasone propionate 110 mcg/actuation HFA aerosol inhaler 2 puff INHALATION BID 90 Days Qty: 72 0RF multivitamin tablet 1 tab PO .COMPLEX Rx Instructions: 1 tab PO QDAY with food rivaroxaban 20 mg tablet 20 mg PO .COMPLEX Rx Instructions: 20 mg PO QDAy with evening meal; administer with evening meal potassium chloride 20 mEq tablet extended release 20 meq PO .COMPLEX Rx Instructions: 20 mEq PO BID with food polyethylene glycol 3350 [Miralax] 17 gram/dose powder See Rx Instructions PO .COMPLEX Rx Instructions: unknown PO unknown; Albuterol inhaler INHALATION PRN Centrum Silver, Calcium 600mg, Vit D3 800IU PO furosemide 40 mg tablet 40 mg PO BID 90 Days Qty: 200 3RF Narcan 4 mg/actuation spray,non-aerosol 1 spray INTRANASAL .COMPLEX Qty: 2 0RF Rx Instructions: 1 spray intranasal administer in each nostril in event of suspected overdose; call 911 methocarbamol 750 mg tablet 750 mg PO TID PRN (Reason: Pain/muscle spasm) Qty: 90 2RF hydrocodone-acetaminophen 10-325 mg tablet 1 - 2 tab PO Q4H MDD 8 PRN (Reason: pain) Qty: 240 0RF Rx Instructions: *MUST LAST 30 DAYS*, P/U 06/07 (due to weekend), Start 06/09 morphine [MS Contin] 60 mg tablet extended release 60 mg PO QDAY MDD 1 Qty: 30 0RF Rx Instructions: *MUST LAST 30 DAYS*, P/U 06/07 (due to weekend), Start 06/09 morphine [MS Contin] 100 mg tablet extended release 100 mg PO Q12H MDD 2 Qty: 60 0RF Rx Instructions: *MUST LAST 30 DAYS*, P/U 06/07 (due to weekend), Start 06/09 sennosides 1 TAB tablet 2 tab PO BID 0RF ondansetron 4 mg tablet,disintegrating 4 mg PO Q8H PRN (Reason: nausea and vomiting) Qty: 20 0RF
[2022-05-24 23:17] LABS: Basophils # (Auto) 0.05 K/mcL (0.00-0.30); Basophils % (Auto) 0.4 % (0.0-2.0); Eosinophils # (Auto) 0.02 K/mcL (0.00-0.70); Eosinophils % (Auto) 0.1 % (0.0-7.0); Hematocrit 41.5 % (34.1-44.9); Hemoglobin 14.1 g/dL (11.2-15.7); Lymphocytes % (Auto) 8.2 % (15.5-49.0); Mean Cell Volume 95.2 fL (80.0-100.0); Monocytes # (Auto) 1.62 K/mcL (0.10-0.90); Monocytes % (Auto) 12.1 % (1.0-12.0); Neutrophils % (Auto) 78.8 % (38.0-78.0); Platelet Count 287 K/mcL (140-440); RBC 4.36 M/mcL (3.59-5.38); Red Cell Distribution Width 12.5 % (11.5-14.5); WBC 13.4 K/mcL (4.5-11.0)
[2022-05-24] MEDS: IPRATROPIUM/ALBUTEROL 3 ML AMPUL.NEB NEB SCH (23:19)
[2022-05-24 23:42] LABS: ALT/SGPT 16 U/L (<40); AST/SGOT 29 U/L (<32); Albumin 4.5 gm/dL (3.2-5.2); Albumin/Globulin Ratio 1.8 (1.0-2.3); Alkaline Phosphatase 94 U/L (39-117); Bilirubin,Total 0.7 mg/dL (0.1-1.0); Blood Urea Nitrogen 7 mg/dL (8-23); Calcium 9.4 mg/dL (8.6-10.4); Carbon Dioxide 32 mmol/L (22-30); Chloride 90 mmol/L (96-108); Globulin 2.5 gm/dL (2.2-3.7); Glomerular Filtration Rate 92; Glucose 123 mg/dL (70-105)
[2022-05-25] MEDS ORDERED: HYDROmorphone 0.5 MG/0.5 ML SYRINGE IV ONE ×2 (00:12→01:16)
[2022-05-25] MEDS: IPRATROPIUM/ALBUTEROL 3 ML AMPUL.NEB NEB SCH ×9 (03:26→19:23)
[2022-05-25] MEDS ORDERED: morphine 4 MG/ML VIAL IV ONE ×2 (03:30→07:29)
[2022-05-25] MEDS ORDERED: morphine 4 MG/ML VIAL ONE (03:44)
[2022-05-25] MEDS: methylPREDNISolone SOD SUCC 125 MG/2 ML VIAL IV SCH ×2 (05:36→11:25)
[2022-05-25] MEDS ORDERED: morphine 100 MG TABLET.ER PO SCH ×2 (07:00→08:00)
[2022-05-25] MEDS: morphine 4 MG/ML VIAL ONE ×2 (07:24→07:35)
--- NOTE | 2022-05-25 08:25 | Internal Med History&Physical ---
HPI History of Present Illness Patient information: Note initiated : 05/25/22 at 8:18 am Service Date, if different from initiated Date: [] Patient: Jennie Smith 71 y/o F admitted on 05/25/22 for SOB 2 days. Chief Complaint: [Shortness of breath] Chief complaint: Shortness of breath History of present illness: Ms. Smith is a 71 year old F history of COPD, atrial fibrillation, chronic back pain, complaining of 2-day history of shortness of breath with nonproductive cough and respiratory wheezings. No prior similar episode. No recent travel or sick contact. She is coming of today history of acute onset and persisting shortness of breath with nonproductive cough and respiratory wheezings. She is also commenting of subjective fever but denies any chills. She denies any chest pain or chest pressure. As a result, she was being brought via EMS to our ED last night for further evaluations. Vital signs significant for tachycardia and tachypnea heart rate and rate of breathing in 100s and mid 20s, respectively. Low-grade fever T-max 37.6. She was placed on supplemental oxygen up to 4 L/min via oxygen mask. Labs significant for leukocytosis with WBC 13.4. Rebeca negative, [place] pending. Lactic acid 1.0. Troponin 0.01. Chest x-ray pending. Admission request called for COPD exacerbations plus or minus community-acquired pneumonia. Constitutional Constitutional: Present fever(s); Absent chills, excessive sweating, fatigue or weakness EENT Eyes: Absent blurry vision, change in vision, loss of vision or other visual disturbances Ears: Absent decreased hearing or tinnitus Nose, mouth and throat: Absent abnormal hearing, dry mouth, headache(s), nasal congestion or sore throat Cardiovascular Cardiovascular: Absent chest pain, chest pain at rest, edema, irregular heart rhythm or palpatations Respiratory Respiratory: Present cough, dyspnea and wheezing; Absent excessive phlegm production Gastrointestinal Gastrointestinal: Absent abdominal pain, constipation, diarrhea, nausea or vomiting Musculoskeletal Musculoskeletal: Absent back pain, deformity, limited range of motion, muscle cramps, muscle weakness or numbness Integumentary Integumentary: Absent lesions, rash or wounds Neurological Neurological: Absent focal weakness, headache(s) or numbness Psychiatric Psychiatric: Absent anxiety, depression or hallucinations PFSH PFSH All Active Problems (Updated 05/25/22 @ 08:23 by Adama Bone MD) Community acquired pneumonia (Acute) Chronic back pain (Acute) COPD exacerbation (Acute) Asthma exacerbation in COPD (Acute) Hypoxia (Acute) Pneumonia (Acute) Vertigo (Acute) Medicare annual wellness visit, initial (Acute) Encounter for removal of sutures (Acute) Fall (Acute) Laceration of face (Acute) Acute pain of right knee (Acute) Back pain (Acute) Leg wound, left (Acute) Osteoporosis (Chronic) Acute pain of left wrist (Acute) Left wrist sprain (Acute) Fall (on) (from) other stairs and steps, initial encounter (Acute) Chronic use of opiate drug for therapeutic purpose (Chronic) Left leg pain (Chronic) Holosystolic murmur (Chronic) Chronic pain (Chronic) Encounter for long-term (current) use of other medications (Chronic) Spondylosis without myelopathy or radiculopathy, lumbar region (Chronic) Chronic, continuous use of opioids (Chronic) S/P ORIF (open reduction internal fixation) fracture (Chronic) Valvular heart disease (Chronic) Chronic anticoagulation (Chronic) 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) Chronic low back pain (Chronic) History of tonsillectomy (Chronic) History of total splenectomy (Chronic) History of surgery (Chronic) History of laminectomy (Chronic) History of knee replacement procedure of right knee (Chronic) History of hysterectomy (Chronic) History of cholecystectomy (Chronic) History of cardiac catheterization (Chronic) History of back surgery (Chronic) Status post arthroscopic surgery of right knee (Chronic) History of appendectomy (Chronic) History of adenoidectomy (Chronic) Right bundle branch block (Chronic) Osteoarthrosis, localized, primary, involving lower leg (Chronic) Obstructive sleep apnea (Chronic 05/11/14) Obesity (Chronic) Myocardial infarction, old (Chronic) Lymphedema (Chronic) Insomnia (Chronic) Hypertension, essential (Chronic) Gout (Chronic) Gastroparesis (Chronic) Gastroesophageal reflux (Chronic) Edema (Chronic) Degenerative disc disease (Chronic) Coronary artery disease (Chronic) History of colonic polyps (Chronic) Chronic pain syndrome (Chronic) Atrial fibrillation (Chronic 01/24/14) Asthma (Chronic) Medical History Asthma Asthma exacerbation Atrial fibrillation (01/24/14) Chronic anticoagulation Chronic low back pain Chronic pain Chronic pain syndrome Left shoulder Chronic use of opiate drug for therapeutic purpose Chronic, continuous use of opioids Congestive heart failure Coronary artery disease Degenerative disc disease Edema Lower extremity edema Encounter for long-term (current) use of other medications Encounter for removal of sutures Femur fracture, left Gastroesophageal reflux Gastroparesis Gout Hepatitis C, chronic History of colonic polyps Holosystolic murmur Hypertension, essential Insomnia Left leg pain Leg wound, left Lymphedema lower exremity Malignant lymphoma Stage IV marginal zone, 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 Pneumonia Right bundle branch block Spondylosis without myelopathy or radiculopathy, lumbar region Valvular heart disease Mitral regurgitation, tricuspid regurgitation Varicose veins of both lower extremities Viral syndrome Surgical History History of adenoidectomy 1956 History of appendectomy 1994 History of back surgery 1977, 2008 x 2 lumbar spine after falls and fractures, granuloma removed from spine History of cardiac catheterization 04/23 History of cholecystectomy 2003 History of hysterectomy 1996 "for endometriosis" History of knee replacement procedure of right knee 1987, TRK replacement revision August [address] Vega History of laminectomy 1981 History of surgery 2002 Pain pump implant for chronic back pain History of surgery TF JANIE #1 Left S1 w/sed 04-07-12 Catheter Dye Study 08/27/06 History of tonsillectomy 1956 History of total splenectomy 2002 S/P ORIF (open reduction internal fixation) fracture distal left femur 11/2018 Dr. 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[employer], 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, 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 leisure activities: other eating out: rarely or never physical activity: walking smoking status: Never smoker alcohol intake frequency: does not drink substance use type: does not use julian/rastafarian: Baptism seatbelt use: always MEDS/ALLERGIES Home Medications and Allergies Home Medications Medication Instructions Recorded Confirmed Type potassium chloride 20 mEq 20 meq PO BID 04/18/15 05/25/22 History tablet,extended release rivaroxaban 20 mg tablet 20 mg PO QPM 04/18/15 05/25/22 History diltiazem HCl 60 mg tablet 60 mg PO QID 90 days #360 tabs 11/05/16 05/25/22 Rx sennosides 8.6 mg tablet 2 tab PO BID 12/09/18 05/25/22 Rx albuterol sulfate 90 mcg/actuation See Rx Instructions .Route 01/18/19 05/25/22 Rx aerosol inhaler (Ventolin HFA) .COMPLEX #54 grams polyethylene glycol 3350 17 17 g PO QAM 12/22/19 05/25/22 History gram/dose oral powder (Miralax) naloxone 4 mg/actuation nasal 1 spray intranasal .COMPLEX #2 ea 10/01/21 04/01/22 Rx spray (Narcan) ondansetron 4 mg disintegrating 4 mg PO Q8H PRN nausea and 02/18/22 05/25/22 Rx tablet vomiting #20 tabs fluticasone propionate 110 2 puff inhalation BID 90 days #72 03/04/22 05/25/22 Rx mcg/actuation HFA aerosol inhaler grams ipratropium 0.5 mg-albuterol 3 mg 3 ml inhalation QID #360 mL 03/04/22 04/01/22 Rx (2.5 mg base)/3 mL nebulization soln lisinopril 2.5 mg tablet 2.5 mg PO BID 90 days #180 tabs 03/04/22 05/25/22 Rx furosemide 40 mg tablet 40 mg PO BID 90 days #200 tabs 03/11/22 05/25/22 Rx hydrocodone 10 mg-acetaminophen 1 - 2 tab PO Q4H PRN pain #240 tabs 04/01/22 05/25/22 Rx 325 mg tablet morphine 100 mg tablet,extended 100 mg PO Q12H #60 tabs 04/01/22 05/25/22 Rx release (MS Contin) methocarbamol 750 mg tablet 750 mg PO TID 05/25/22 05/25/22 History morphine 60 mg tablet,extended 60 mg PO QNOON 05/25/22 05/25/22 History release (MS Contin) multivit with 1 tab PO QPM 05/25/22 05/25/22 History ptlqbvxd-xusi-VN-lutein 8 mg iron-400 mcg-300 mcg tablet (Centrum Silver Women) Allergies Allergy/AdvReac Type Severity Reaction Status Date / Time ketorolac [From Toradol] Allergy Mild Hives Verified 05/24/22 21:43 lorazepam Allergy Unknown Unknown Verified 05/24/22 21:43 propoxyphene [From Darvon] Allergy Unknown unknown Verified 05/24/22 21:43 Zolpidem [From Ambien] AdvReac Intermediate "Made me Verified 05/24/22 21:43 insane" alendronate sodium AdvReac Mild Dyspepsia Verified 05/25/22 07:43 atenolol AdvReac Mild "Feel Verified 05/24/22 21:43 strange" gabapentin [From Neurontin] AdvReac Mild gi upset Verified 05/25/22 07:43 hydrochlorothiazide AdvReac Mild Dizziness Verified 05/24/22 21:43 NSAIDS (Non-Steroidal AdvReac Mild Gastritis/U Verified 05/25/22 07:43 Anti-Inflamma lcer influenza virus vaccine, AdvReac Unknown Other Verified 05/24/22 21:43 specific [Influenza Virus Vacc,Specific] EXAM Constitutional Vitals: Temp Pulse Resp BP Pulse Ox O2 Del Method O2 Flow Rate 36.6 C 86 21 116/67 91 4 05/25/22 08:01 05/25/22 08:01 05/25/22 08:01 05/25/22 08:01 05/25/22 08:01 05/25/22 07:38 05/25/22 07:38 General appearance: cooperative, mild distress and morbidly obese Head Head exam: Present atraumatic and normocephalic Eye Eye exam: Present EOMI and PERRL ENT ENT exam: Present mucous membranes moist, normal exam and normal external ear exam Additional comments: Oxymask in place Neck Neck exam: Present normal inspection; Absent lymphadenopathy, tenderness or thyromegaly Respiratory Respiratory exam: Present decreased breath sounds and wheezes; Absent accessory muscle use or respiratory distress Cardiovascular Cardiovascular exam: Present irregular rhythm and systolic murmur; Absent JVD GI/Abdominal GI/Abdominal exam: Present normal bowel sounds and soft; Absent organomegaly or tenderness Extremities Exam Extremities exam: Present full ROM, normal capillary refill and normal inspection; Absent tenderness Neurological Exam Neurological exam: Present alert, CN II-XII intact and oriented X3; Absent motor sensory deficit Psychiatric Psychiatric exam: Present normal affect and normal mood; Absent anxious or depressed Skin Skin exam: Present dry and intact DATA Data Completed and Pending Labs: Labs from last 24 hours 05/24/22 05/24/22 05/24/22 22:52 22:29 22:29 WBC 13.4 H RBC 4.36 Hgb 14.1 Hct 41.5 POC Hct MCV 95.2 MCH 32.3 MCHC 34.0 RDW 12.5 Plt Count 287 MPV 9.0 Immature Gran % (Auto) 0.4 Neut % (Auto) 78.8 H Lymph % (Auto) 8.2 L [place] % (Auto) 12.1 H Eos % (Auto) 0.1 Baso % (Auto) 0.4 Lymph # (Auto) 1.10 L [place] # (Auto) 1.62 H Eos # (Auto) 0.02 Baso # (Auto) 0.05 Immature Gran # 0.06 H Absolute Neutrophils 10.56 H POC VBG pH POC VBG pCO2 at Temp POC VBG pO2 POC VBG HCO3 POC VBG Total CO2 POC Venous O2 Sat POC VBG Base Excess VBG Lactic Acid POC Sodium Sodium 134 POC Potassium Potassium 3.7 POC Chloride Chloride 90 L Carbon Dioxide 32 H POC Total CO2 Anion Gap 12.0 POC BUN BUN 7 L Creatinine 0.6 POC Creatinine GFR Calculation 92 Glucose 123 H POC Glucose Calcium 9.4 POC WB Ioniz Calcium Total Bilirubin 0.7 AST 29 ALT 16 Alkaline Phosphatase 94 Total Protein 7.0 Albumin 4.5 Globulin 2.5 Albumin/Globulin Ratio 1.8 POC Troponin I 0.01 L 05/24/22 05/24/22 22:10 22:09 WBC RBC Hgb Hct POC Hct 45.0 MCV MCH MCHC RDW Plt Count MPV Immature Gran % (Auto) Neut % (Auto) Lymph % (Auto) [place] % (Auto) Eos % (Auto) Baso % (Auto) Lymph # (Auto) [place] # (Auto) Eos # (Auto) Baso # (Auto) Immature Gran # Absolute Neutrophils POC VBG pH 7.44 H POC VBG pCO2 at Temp 55.3 H POC VBG pO2 30 POC VBG HCO3 37.3 H POC VBG Total CO2 39.0 H POC Venous O2 Sat 59.0 POC VBG Base Excess 13.0 H* VBG Lactic Acid 1.0 POC Sodium 133 Sodium POC Potassium 3.7 Potassium POC Chloride 88 L Chloride Carbon Dioxide POC Total CO2 35.0 H Anion Gap POC BUN 7 BUN Creatinine POC Creatinine 0.6 GFR Calculation Glucose POC Glucose 131 H Calcium POC WB Ioniz Calcium 1.12 L Total Bilirubin AST ALT Alkaline Phosphatase Total Protein Albumin Globulin Albumin/Globulin Ratio POC Troponin I A/P Assessment and plan (1) COPD exacerbation: Status: Acute (2) Atrial fibrillation: Status: Chronic Qualifiers: Atrial fibrillation type: chronic Qualified Code(s): I48.2 - Chronic atrial fibrillation (3) Hypertension, essential: Status: Chronic (4) Chronic back pain: Status: Acute (5) Community acquired pneumonia: Status: Acute Plan Assessment and Plans: 1. COPD exacerbation: Inpatient med surg Supplemental oxygen therapy, titrate to achieve spo2>=88% DuoNEB NEB q4hr scheduled Albuterol NEB q2hr PRN wheezing Prednisone Azithromycin 2. Community acquired pneumonia: Supplemental oxygen therapy, titrate to achieve spo2>=88% Serial lactic acid Blood culture cbc w./ auto diff in the morning to trend WBC Rocephin Zithromax 3. Chronic back pain: Continue MS Contin and [place] from home regimen 4. Atrial fibrillation: Cardizem Xarelto 5. Essential HTN: Lisinopril Cardizem Lasix GI ppx: not currently indicated DVT ppx: Xarelto Code status: Full Prognosis: guarded Disposition: inpatient med surg Time Spent With Patient Time: Total time spent is greater than 50% in coordination of care (as documented) at patient's floor/unit and/or counseling patient: Total time spent with greater than 50% in coordination of care (as documented) at patient's floor/unit and/or counseling patient:: 50 - 70 minutes QUALITY VTE Deep Vein Thrombosis/Pulmonary Embolism Present on Admission: No
--- NOTE | 2022-05-25 08:46 | XRay Report ---
HISTORY: Shortness of breath for two days, cough FINDINGS: Right diaphragm is moderately elevated. There are bands of scar tissue above the right diaphragm and adjacent to the left heart border. There is a round masslike structure medially in the left lower lobe which represents a foramen of Bochdalek hernia. The heart is mild to moderately enlarged. There is no congestive heart failure or pleural effusion. Comparison with prior chest x-ray on 04/22/[address] on 02/07/17 shows no change. IMPRESSION: No acute abnormality Interpreted and Authenticated by: Jama Choi 05/25/22
[2022-05-25] MEDS: morphine 30 MG TAB.SR.12H PO SCH ×3 (09:09→17:01)
[2022-05-25] MEDS: SENNOSIDES 1 TABLET PO SCH ×3 (09:11→21:15)
[2022-05-25] MEDS: LISINOPRIL 2.5 MG TABLET PO SCH ×2 (09:11→21:14)
[2022-05-25] MEDS: POTASSIUM CHLORIDE 20 MEQ TABLET PO SCH ×2 (09:11→17:02)
[2022-05-25] MEDS: POLYETHYLENE GLYCOL 3350 17 GM PACKET PO SCH (09:11)
[2022-05-25] MEDS: DILTIAZEM 30 MG TABLET PO SCH ×4 (09:11→21:13)
[2022-05-25] MEDS: FUROSEMIDE 40 MG TABLET PO SCH ×2 (09:11→14:42)
[2022-05-25] MEDS: METHOCARBAMOL 750 MG TABLET PO SCH ×3 (09:11→21:13)
[2022-05-25] MEDS ORDERED: MORPHINE 60 MG PO SCH (12:00)
--- NOTE | 2022-05-25 12:58 | Internal Med Progress Note ---
SUBJECTIVE Subjective Patient information: Note initiated : 05/25/22 at 12:52 pm Service Date, if different from initiated Date: [] Patient: Jennie Smith 71 y/o F admitted on 05/25/22 for SOB 2 days. Chief Complaint: [] Interval history: Ms. Smith is a 71 year old F history of COPD, atrial fibrillation, chronic back pain, complaining of 2-day history of shortness of breath with nonproductive cough and respiratory wheezings. No prior similar episode. No recent travel or sick contact. She is coming of today history of acute onset and persisting shortness of breath with nonproductive cough and respiratory wheezings. She is also commenting of subjective fever but denies any chills. She denies any chest pain or chest pressure. As a result, she was being brought via EMS to our ED last night for further evaluations. Vital signs significant for tachycardia and tachypnea heart rate and rate of breathing in 100s and mid 20s, respectively. Low-grade fever T-max 37.6. She was placed on supplemental oxygen up to 4 L/min via oxygen mask. Labs significant for leukocytosis with WBC 13.4. Rebeca negative, [place] pending. Lactic acid 1.0. Troponin 0.01. Chest x-ray pending. Admission request called for COPD exacerbations plus or minus community-acquired pneumonia. 05/26: Oxygen weaned down to 3 L/min, started Lasix 40 mg IV twice daily for volume overload, sodium down to 129 today. Overall the patient feels like her respiratory status has improved. Continuing ceftriaxone and azithromycin for pneumonia, prednisone for COPD exacerbation. Decreased scheduled DuoNebs frequency to every 6 hours, continue albuterol nebs as needed every 2 hours. Head: Atraumatic, normal inspection. Eyes: normal appearance, no scleral icterus. Neck: full ROM Respiratory: 3 L/min nasal cannula oxygen, bilateral wheezing present, no respiratory distress. Cardiovascular: normal rate and rhythm, S1, S2. GI/Abdominal: soft, nontender, no guarding. Extremities: Bilateral lower extremity pitting edema up to knees, full range of motion, nontender. Neurological: CN II-XII intact, intact motor, intact sensation. Psychiatric: normal mood. Skin: warm, normal color Constitutional Vitals: Vital Signs Temp Pulse Resp BP Pulse Ox O2 Del Method O2 Flow Rate 97.8 F 81 18 122/76 97 4 05/25/22 12:18 05/25/22 12:18 05/25/22 12:18 05/25/22 12:18 05/25/22 12:18 05/25/22 11:54 05/25/22 11:54 Period Temp Pulse Resp BP Sys/Agu[place]re Pulse Ox O2 Del Method O2 Flow Rate Last 24 Hr 97.8 F-99.6 F 32-112 16-35 88-137/66-92 84-97 Nasal Cannula- Room Air 2-4 Intake and Output 05/24/22 05/25/22 05/25/22 21:59 05:59 13:59 Intake Total 500 Output Total 500 800 Balance 0 -800 Weight 117.934 kg 123.74 kg Intake & Output: Intake & Output 05/24/22 05/25/22 05/25/22 21:59 05:59 13:59 Intake Total 500 Output Total 500 800 Balance 0 -800 Weight 117.934 kg 123.74 kg Intake: IV 500 Sodium Chloride 0.9% 500 ml @ 500 Wide Open IV BOLUS ONE Rx#: [id number] Output: Void Amount 500 800 Other: Meal Lunch Percent of Meal Consumed 25% Feeding Ability Independent Urine Appearance Clear Clear Urine Color Dark Yellow Dark Yellow Urine Odor Normal OBJ DATA Labs CBC & Chem 7: 05/26/22 05:17 05/26/22 05:17 Labs: Abnormal Lab Results 05/24/22 05/24/22 05/24/22 22:52 22:29 22:29 WBC 13.4 H Neut % (Auto) 78.8 H Lymph % (Auto) 8.2 L [place] % (Auto) 12.1 H Lymph # (Auto) 1.10 L [place] # (Auto) 1.62 H Immature Gran # 0.06 H Absolute Neutrophils 10.56 H POC VBG pH POC VBG pCO2 at Temp POC VBG HCO3 POC VBG Total CO2 POC VBG Base Excess POC Chloride Chloride 90 L Carbon Dioxide 32 H POC Total CO2 BUN 7 L Glucose 123 H POC Glucose POC WB Ioniz Calcium POC Troponin I 0.01 L 05/24/22 05/24/22 22:10 22:09 WBC Neut % (Auto) Lymph % (Auto) [place] % (Auto) Lymph # (Auto) [place] # (Auto) Immature Gran # Absolute Neutrophils POC VBG pH 7.44 H POC VBG pCO2 at Temp 55.3 H POC VBG HCO3 37.3 H POC VBG Total CO2 39.0 H POC VBG Base Excess 13.0 H* POC Chloride 88 L Chloride Carbon Dioxide POC Total CO2 35.0 H BUN Glucose POC Glucose 131 H POC WB Ioniz Calcium 1.12 L POC Troponin I Meds: Medications Hydrocodone Bitart/Acetaminophen (Hydrocodone/Apap 10/325mg Tablet) 1 - 2 tab PO Q4H PRN; Protocol PRN Reason: pain Albuterol/Ipratropium (Ipratropium/Albuterol 3 Ml Ampul.Neb) 3 ml NEB Q4HRT COUNTS INCLUDE 234 BEDS AT THE [facility] Last Admin: 05/25/22 11:53 Dose: 3 ml Albuterol/Ipratropium (Ipratropium/Albuterol 3 Ml Ampul.Neb) 3 ml NEB Q4HRT COUNTS INCLUDE 234 BEDS AT THE [facility] Last Admin: 05/25/22 08:13 Dose: Not Given Diltiazem HCl (Diltiazem 30 Mg Tablet) 60 mg PO ACHS COUNTS INCLUDE 234 BEDS AT THE [facility] Last Admin: 05/25/22 11:26 Dose: 60 mg Furosemide (Furosemide 40 Mg Tablet) 40 mg PO BID COUNTS INCLUDE 234 BEDS AT THE [facility] Last Admin: 05/25/22 09:11 Dose: 40 mg Iron Carb/Multivit/[place]/Folic Acid (Multivit,Ther Iron,Ca,Fa & Min 1 Tablet) 1 tab PO QPM COUNTS INCLUDE 234 BEDS AT THE [facility] Lisinopril (Lisinopril 2.5 Mg Tablet) 2.5 mg PO BID COUNTS INCLUDE 234 BEDS AT THE [facility] Last Admin: 05/25/22 09:11 Dose: 2.5 mg Methocarbamol (Methocarbamol 750 Mg Tablet) 750 mg PO TID COUNTS INCLUDE 234 BEDS AT THE [facility] Last Admin: 05/25/22 09:11 Dose: 750 mg Methylprednisolone Sodium Succinate (Methylprednisolone Sod Succ 125 Mg/2 Ml Vial) 125 mg IV Q6 COUNTS INCLUDE 234 BEDS AT THE [facility] Last Admin: 05/25/22 11:25 Dose: 125 mg Morphine Sulfate (Morphine 30 Mg Tab.Sr.12h) 60 mg PO QNOON COUNTS INCLUDE 234 BEDS AT THE [facility]; Protocol Last Admin: 05/25/22 11:25 Dose: 60 mg Morphine Sulfate (Morphine 30 Mg Tab.Sr.12h) 90 mg PO BID@0700,1700 COUNTS INCLUDE 234 BEDS AT THE [facility] Last Admin: 05/25/22 09:09 Dose: 90 mg Polyethylene Glycol (Polyethylene Glycol 3350 17 Gm Packet) 17 gm PO QAM COUNTS INCLUDE 234 BEDS AT THE [facility] Last Admin: 05/25/22 09:11 Dose: 17 gm Potassium Chloride (Potassium Chloride 20 Meq Tablet) [facility] Admin: 05/25/22 09:11 Dose: 20 meq Rivaroxaban (Rivaroxaban 20 Mg Tablet) 20 mg PO QPM COUNTS INCLUDE 234 BEDS AT THE [facility] Senna (Sennosides 1 Tablet) 2 tab PO BID COUNTS INCLUDE 234 BEDS AT THE [facility] Last Admin: 05/25/22 09:11 Dose: 2 tab A/P Narrative A/P Narrative: Assessment: 71-year-old female with multiple comorbidities including a history of COPD, atrial fibrillation, diastolic heart failure, pulmonary hypertension, mitral and tricuspid valve regurgitation, obesity hypoventilation syndrome, obstructive sleep apnea, obesity, chronic back pain, admitted for acute hypoxic respiratory failure felt to be secondary to a COPD exacerbation, community- acquired pneumonia, and volume overload secondary to diastolic heart failure and pulmonary hypertension. #Acute hypoxic respiratory failure #COPD exacerbation #Possible community-acquired pneumonia #Acute on chronic diastolic heart failure #Moderate pulmonary hypertension #Moderate mitral regurgitation #Atrial fibrillation #Hypertension #Chronic back pain on long-term opioid therapy #Obstructive sleep apnea #Obesity hypoventilation syndrome #Obesity BMI 51 Plan -Ceftriaxone and azithromycin, treat 5 to 7 days. -Oxygen supplementation, wean as tolerated. -Prednisone for COPD exacerbation. -Scheduled duo nebs and as needed albuterol nebs. -Lasix 40 mg IV twice daily, follow volume status. -Follow blood culture results. -Monitor CBC with differential. -Continue home Cardizem, Xarelto, lisinopril, MS Contin, [place]. -Holding home oral Lasix for IV diuresis. -Holding home fluticasone inhaler for now. -CPAP at bedtime. -Low-sodium diet. -PT consult. -DVT prophylaxis: Xarelto. -Disposition: Home when stable, possibly on supplemental oxygen. Time Spent With Patient Time: Total time spent is greater than 50% in coordination of care (as documented) at patient's floor/unit and/or counseling patient: QUALITY VTE Deep Vein Thrombosis/Pulmonary Embolism Present on Admission: No
[2022-05-25] MEDS ORDERED: ALBUTEROL SULFATE 2.5 MG/3 ML NEBULIZER NEB PRN (13:22)
[2022-05-25] MEDS ORDERED: cefTRIAXone 1 GM in DEXTROSE 5% IN WATER 50 ML IV SCH (13:22)
[2022-05-25] MEDS ORDERED: traZODone HCL 50 MG TABLET PO PRN (13:22)
[2022-05-25] MEDS ORDERED: ONDANSETRON 4 MG/2 ML VIAL IV PRN (13:22)
[2022-05-25] MEDS ORDERED: ACETAMINOPHEN 325 MG TABLET PO PRN (13:22)
[2022-05-25] MEDS: cefTRIAXone 1 GM VIAL IV SCH (14:10)
[2022-05-25] MEDS: 0.9 % SODIUM CHLORIDE 10 ML SYRINGE IV SCH ×2 (14:14→21:30)
[2022-05-25] MEDS: HYDROcodone/APAP 10/325MG TABLET PO PRN ×3 (14:14→21:12)
[2022-05-25] MEDS: DOCUSATE SODIUM 100 MG CAPSULE PO SCH ×2 (14:14→21:13)
[2022-05-25] MEDS: AZITHROMYCIN 500 MG in DEXTROSE 5% IN WATER 250 ML IV SCH (15:28)
[2022-05-25] MEDS: RIVAROXABAN 20 MG TABLET PO SCH (21:13)
[2022-05-25] MEDS: MULTIVIT,THER IRON,CA,FA & MIN 1 TABLET PO SCH (21:14)
[2022-05-26] MEDS: IPRATROPIUM/ALBUTEROL 3 ML AMPUL.NEB NEB SCH ×7 (04:24→19:02)
[2022-05-26] MEDS: 0.9 % SODIUM CHLORIDE 10 ML SYRINGE IV SCH ×3 (04:24→20:27)
[2022-05-26 06:27] LABS: Basophils # (Auto) 0 K/mcL (0.00-0.30); Basophils % (Auto) 0 % (0.0-2.0); Eosinophils # (Auto) 0 K/mcL (0.00-0.70); Eosinophils % (Auto) 0 % (0.0-7.0); Hematocrit 38.4 % (34.1-44.9); Hemoglobin 12.8 g/dL (11.2-15.7); Lymphocytes # (Auto) 0.79 K/mcL (1.50-4.80); Lymphocytes % (Auto) 7.7 % (15.5-49.0); Mean Corpuscular HGB Conc 33.3 g/dL (31.0-36.0); Mean Platelet Volume 9.1 fL (7.4-10.4); Monocytes # (Auto) 0.57 K/mcL (0.10-0.90); Monocytes % (Auto) 5.6 % (1.0-12.0); Neutrophils % (Auto) 86.3 % (38.0-78.0); Platelet Count 261 K/mcL (140-440); RBC 3.96 M/mcL (3.59-5.38); Red Cell Distribution Width 12.7 % (11.5-14.5); WBC 10.3 K/mcL (4.5-11.0)
[2022-05-26 06:51] LABS: Blood Urea Nitrogen 13 mg/dL (8-23); Calcium 8.8 mg/dL (8.6-10.4); Carbon Dioxide 28 mmol/L (22-30); Chloride 90 mmol/L (96-108); Glomerular Filtration Rate 98; Glucose 201 mg/dL (70-105)
[2022-05-26] MEDS: DILTIAZEM 30 MG TABLET PO SCH ×4 (06:53→20:27)
[2022-05-26] MEDS: morphine 30 MG TAB.SR.12H PO SCH ×3 (06:54→17:02)
[2022-05-26] MEDS: predniSONE 20 MG TABLET PO SCH (07:36)
[2022-05-26] MEDS: POTASSIUM CHLORIDE 20 MEQ TABLET PO SCH ×2 (07:36→17:02)
[2022-05-26] MEDS ORDERED: FUROSEMIDE 40 MG TABLET PO SCH (08:00)
[2022-05-26] MEDS: POLYETHYLENE GLYCOL 3350 17 GM PACKET PO SCH (09:42)
[2022-05-26] MEDS: AZITHROMYCIN 500 MG in DEXTROSE 5% IN WATER 250 ML IV SCH (09:42)
[2022-05-26] MEDS: LISINOPRIL 2.5 MG TABLET PO SCH ×2 (09:43→20:28)
[2022-05-26] MEDS: SENNOSIDES 1 TABLET PO SCH ×3 (09:43→20:29)
[2022-05-26] MEDS: HYDROcodone/APAP 10/325MG TABLET PO PRN ×3 (09:43→20:28)
[2022-05-26] MEDS: METHOCARBAMOL 750 MG TABLET PO SCH ×3 (09:43→20:28)
[2022-05-26] MEDS: DOCUSATE SODIUM 100 MG CAPSULE PO SCH ×2 (09:43→20:28)
[2022-05-26] MEDS: cefTRIAXone 1 GM VIAL IV SCH (10:37)
[2022-05-26] MEDS: FUROSEMIDE 40 MG/4 ML VIAL IV SCH (16:06)
[2022-05-26] MEDS: MULTIVIT,THER IRON,CA,FA & MIN 1 TABLET PO SCH (20:27)
[2022-05-26] MEDS: RIVAROXABAN 20 MG TABLET PO SCH (20:28)
[2022-05-27] MEDS: IPRATROPIUM/ALBUTEROL 3 ML AMPUL.NEB NEB SCH ×3 (03:04→13:24)
[2022-05-27] MEDS: 0.9 % SODIUM CHLORIDE 10 ML SYRINGE IV SCH ×3 (06:00→20:49)
[2022-05-27 06:20] LABS: Blood Urea Nitrogen 16 mg/dL (8-23); Calcium 9.1 mg/dL (8.6-10.4); Carbon Dioxide 30 mmol/L (22-30); Chloride 86 mmol/L (96-108); Glomerular Filtration Rate 98; Glucose 115 mg/dL (70-105)
[2022-05-27] MEDS: FUROSEMIDE 40 MG/4 ML VIAL IV SCH ×2 (06:37→16:35)
[2022-05-27] MEDS: morphine 30 MG TAB.SR.12H PO SCH ×3 (06:37→16:42)
[2022-05-27] MEDS: DILTIAZEM 30 MG TABLET PO SCH ×4 (06:38→20:49)
--- NOTE | 2022-05-27 07:36 | EKG ---
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
[2022-05-27] MEDS ORDERED: MINERAL OIL 1 DOSE ENEMA PR ONE (08:22)
[2022-05-27] MEDS: cefTRIAXone 1 GM VIAL IV SCH (08:52)
[2022-05-27] MEDS: predniSONE 20 MG TABLET PO SCH (08:52)
[2022-05-27] MEDS: SENNOSIDES 1 TABLET PO SCH ×3 (08:52→20:49)
[2022-05-27] MEDS: METHOCARBAMOL 750 MG TABLET PO SCH ×3 (08:52→20:49)
[2022-05-27] MEDS: AZITHROMYCIN 500 MG in DEXTROSE 5% IN WATER 250 ML IV SCH (08:53)
[2022-05-27] MEDS: POTASSIUM CHLORIDE 20 MEQ TABLET PO SCH ×2 (08:53→16:41)
[2022-05-27] MEDS: LISINOPRIL 2.5 MG TABLET PO SCH ×2 (08:53→20:49)
[2022-05-27] MEDS: DOCUSATE SODIUM 100 MG CAPSULE PO SCH ×2 (08:53→20:49)
[2022-05-27] MEDS: POLYETHYLENE GLYCOL 3350 17 GM PACKET PO SCH (09:03)
[2022-05-27] MEDS: HYDROcodone/APAP 10/325MG TABLET PO PRN ×3 (09:48→20:50)
[2022-05-27] MEDS: LACTULOSE 20 GM/30 ML ORAL.SOL PO SCH ×2 (12:08→21:04)
--- NOTE | 2022-05-27 13:16 | Internal Med Progress Note ---
SUBJECTIVE Subjective Patient information: Note initiated : 05/27/22 at 1:12 pm Service Date, if different from initiated Date: [] Patient: Jennie Smith 71 y/o F admitted on 05/25/22 for SOB 2 days. Chief Complaint: [] Interval history: Ms. Smith is a 71 year old F history of COPD, atrial fibrillation, chronic back pain, complaining of 2-day history of shortness of breath with nonproductive cough and respiratory wheezings. No prior similar episode. No recent travel or sick contact. She is coming of today history of acute onset and persisting shortness of breath with nonproductive cough and respiratory wheezings. She is also commenting of subjective fever but denies any chills. She denies any chest pain or chest pressure. As a result, she was being brought via EMS to our ED last night for further evaluations. Vital signs significant for tachycardia and tachypnea heart rate and rate of breathing in 100s and mid 20s, respectively. Low-grade fever T-max 37.6. She was placed on supplemental oxygen up to 4 L/min via oxygen mask. Labs significant for leukocytosis with WBC 13.4. Rebeca negative, [place] pending. Lactic acid 1.0. Troponin 0.01. Chest x-ray pending. Admission request called for COPD exacerbations plus or minus community-acquired pneumonia. 05/26: Oxygen weaned down to 3 L/min, started Lasix 40 mg IV twice daily for volume overload, sodium down to 129 today. Overall the patient feels like her respiratory status has improved. Continuing ceftriaxone and azithromycin for pneumonia, prednisone for COPD exacerbation. Decreased scheduled DuoNebs frequency to every 6 hours, continue albuterol nebs as needed every 2 hours. 05/27: Weaned off oxygen today, sodium decreased to 126 then up to 1 surgery after s tarting fluid restriction. Continuing diuresis with IV Lasix. Started bowel regimen for constipation. Monitoring sodium closely. Head: Atraumatic, normal inspection. Eyes: normal appearance, no scleral icterus. Neck: full ROM Respiratory: Room air, bilateral faint crackles present, no respiratory distress. Cardiovascular: normal rate and rhythm, S1, S2. GI/Abdominal: soft, nontender, no guarding. Extremities: Bilateral lower extremity pitting edema up to knees, full range of motion, nontender. Neurological: CN II-XII intact, intact motor, intact sensation. Psychiatric: normal mood. Skin: warm, normal color Constitutional Vitals: Vital Signs Temp Pulse Resp BP Pulse Ox O2 Del Method O2 Flow Rate 98.1 F 83 18 140/85 94 2.5 05/27/22 12:00 05/27/22 12:00 05/27/22 12:00 05/27/22 12:00 05/27/22 12:00 05/27/22 12:00 05/27/22 07:28 Period Temp Pulse Resp BP Sys/Aguirre Pulse Ox O2 Del Method O2 Flow Rate Last 24 Hr 97.3 F-98.2 F 75-94 - 96-140/63-87 91-99 CPAP-Room Air 2.5-4 Intake and Output 05/26/22 05/27/22 05/27/22 21:59 05:59 13:59 Intake Total 960 450 250 Output Total 2100 600 1800 Balance -1140 -150 -1550 Weight 128.185 kg Intake & Output: Intake & Output 05/26/22 05/27/22 05/27/22 21:59 05:59 13:59 Intake Total 960 450 250 Output Total 2100 600 1800 Balance -1140 -150 -1550 Weight 128.185 kg Intake: IV 250 Zithromax 500 mg In Dextrose 5% 250 in Water 250 ml @ 250 mls/hr IV Q24H [facility] Rx#:[id number] Oral 960 450 Output: Void Amount [id number] Urine/Stool Mix 300 Other: Meal Dinner Percent of Meal Consumed 100% Feeding Ability Independent Urine Appearance Clear Clear Urine Color Yellow Pale Stool Size Small Moderate Stool Color Brown Stool Consistency Loose Soft Loose # Bowel Movements 1 1 OBJ DATA Labs CBC & Chem 7: 05/26/22 05:17 05/27/22 12:01 Labs: Abnormal Lab Results 05/27/22 05/27/22 05/26/22 12:01 04:40 05:17 WBC Neut % (Auto) Lymph % (Auto) Jenkins % (Auto) Lymph # (Auto) Jenkins # (Auto) Immature Gran # Absolute Neutrophils POC VBG pH POC VBG pCO2 at Temp POC VBG HCO3 POC VBG Total CO2 POC VBG Base Excess Sodium 130 L 126 L 129 L POC Chloride Chloride 86 L 90 L Carbon Dioxide POC Total CO2 BUN Creatinine 0.5 L 0.5 L Glucose 115 H 201 H POC Glucose POC WB Ioniz Calcium POC Troponin I 05/26/22 05/24/22 05/24/22 05:17 22:52 22:29 WBC Neut % (Auto) 86.3 H Lymph % (Auto) 7.7 L Jenkins % (Auto) Lymph # (Auto) 0.79 L Jenkins # (Auto) Immature Gran # Absolute Neutrophils 8.85 H POC VBG pH POC VBG pCO2 at Temp POC VBG HCO3 POC VBG Total CO2 POC VBG Base Excess Sodium POC Chloride Chloride 90 L Carbon Dioxide 32 H POC Total CO2 BUN 7 L Creatinine Glucose 123 H POC Glucose POC WB Ioniz Calcium POC Troponin I 0.01 L 05/24/22 05/24/22 05/24/22 22:29 22:10 22:09 WBC 13.4 H Neut % (Auto) 78.8 H Lymph % (Auto) 8.2 L Jenkins % (Auto) 12.1 H Lymph # (Auto) 1.10 L Jenkins # (Auto) 1.62 H Immature Gran # 0.06 H Absolute Neutrophils 10.56 H POC VBG pH 7.44 H POC VBG pCO2 at Temp 55.3 H POC VBG HCO3 37.3 H POC VBG Total CO2 39.0 H POC VBG Base Excess 13.0 H* Sodium POC Chloride 88 L Chloride Carbon Dioxide POC Total CO2 35.0 H BUN Creatinine Glucose POC Glucose 131 H POC WB Ioniz Calcium 1.12 L POC Troponin I Meds: Medications Acetaminophen (Acetaminophen 325 Mg Tablet) 650 mg PO Q6HP PRN; Protocol PRN Reason: Per Pain Protocol/Fever > 101 Hydrocodone Bitart/Acetaminophen (Hydrocodone/Apap 10/325mg Tablet) 1 - 2 tab PO Q4H PRN; Protocol PRN Reason: pain Last Admin: 05/27/22 09:48 Dose: 2 tab Albuterol Sulfate (Albuterol Sulfate 2.5 Mg/3 Ml Nebulizer) 2.5 mg NEB Q2HP PRN PRN Reason: Shortness Of Breath Albuterol/Ipratropium (Ipratropium/Albuterol 3 Ml Ampul.Neb) 3 ml NEB Q6HRT [facility] Last Admin: 05/27/22 07:27 Dose: 3 ml Ceftriaxone Sodium (Ceftriaxone 1 Gm Vial) 1 gm IV Q24H [facility] Last Admin: 05/27/22 08:52 Dose: 1 gm Diltiazem HCl (Diltiazem 30 Mg Tablet) 60 mg PO ACHS [facility] Last Admin: 05/27/22 12:08 Dose: 60 mg Docusate Sodium (Docusate Sodium 100 Mg Capsule) 100 mg PO BID [facility] Last Admin: 05/27/22 08:53 Dose: 100 mg Furosemide (Furosemide 40 Mg/4 Ml Vial) 40 mg IV BIDD [facility] Last Admin: 05/27/22 06:37 Dose: 40 mg Azithromycin 500 mg/ Dextrose 250 mls @ 250 mls/hr IV Q24H [facility]; Protocol Stop: 05/27/22 14:59 Last Infusion: 05/27/22 10:38 Dose: Infused Iron Carb/Multivit/[place]/Folic Acid (Multivit,Ther Iron,Ca,Fa & Min 1 Tablet) 1 tab PO QPM [facility] Last Admin: 05/26/22 20:27 Dose: 1 tab Lactulose (Lactulose 20 Gm/30 Ml Oral.Sangita) 30 gm PO BID [facility] Last Admin: 05/27/22 12:08 Dose: 30 gm Lisinopril (Lisinopril 2.5 Mg Tablet) 2.5 mg PO BID [facility] Last Admin: 05/27/22 08:53 Dose: 2.5 mg Methocarbamol (Methocarbamol 750 Mg Tablet) 750 mg PO TID [facility] Last Admin: 05/27/22 08:52 Dose: 750 mg Morphine Sulfate (Morphine 30 Mg Tab.Sr.12h) 60 mg PO QNOON [facility]; Protocol Last Admin: 05/27/22 12:02 Dose: 60 mg Morphine Sulfate (Morphine 30 Mg Tab.Sr.12h) 90 mg PO BID@0700,1700 [facility] Last Admin: 05/27/22 06:37 Dose: 90 mg Ondansetron HCl (Ondansetron 4 Mg/2 Ml Vial) 4 mg IV Q6HP PRN PRN Reason: Nausea And Vomiting Potassium Chloride (Potassium Chloride 20 Meq Tablet) 20 meq PO BIDCC [facility] Last Admin: 05/27/22 08:53 Dose: 20 meq Prednisone (Prednisone 20 Mg Tablet) 40 mg PO QAMCC [facility] Last Admin: 05/27/22 08:52 Dose: 40 mg Rivaroxaban (Rivaroxaban 20 Mg Tablet) 20 mg PO QPM [facility] Last Admin: 05/26/22 20:28 Dose: 20 mg Senna (Sennosides 1 Tablet) 2 tab PO BID [facility] Last Admin: 05/27/22 08:52 Dose: 2 tab Senna (Sennosides 1 Tablet) 2 tab PO HS [facility] Last Admin: 05/26/22 20:29 Dose: Not Given Sodium Chloride (0.9 % Sodium Chloride 10 Ml Syringe) 10 ml IV Q8 [facility] Last Admin: 05/27/22 06:00 Dose: 10 ml Trazodone HCl (Trazodone Hcl 50 Mg Tablet) 25 mg PO HSP PRN PRN Reason: Insomnia A/P Narrative A/P Narrative: Assessment: 71-year-old female with multiple comorbidities including a history of COPD, atrial fibrillation, diastolic heart failure, pulmonary hypertension, mitral and tricuspid valve regurgitation, obesity hypoventilation syndrome, obstructive sleep apnea, obesity, chronic back pain, admitted for acute hypoxic respiratory failure felt to be secondary to a COPD exacerbation, community- acquired pneumonia, and volume overload secondary to diastolic heart failure and pulmonary hypertension. #Resolved acute hypoxic respiratory failure #Resolving COPD exacerbation #Possible community-acquired pneumonia #Acute on chronic diastolic heart failure #Moderate pulmonary hypertension #Moderate mitral regurgitation #Atrial fibrillation #Hypertension #Chronic back pain on long-term opioid therapy #Obstructive sleep apnea #Obesity hypoventilation syndrome #Obesity BMI 51 Plan -Ceftriaxone and azithromycin, treat 5 to 7 days. -Oxygen supplementation, wean as tolerated. -Prednisone for COPD exacerbation. -Scheduled duo nebs and as needed albuterol nebs. -Lasix 40 mg IV twice daily, follow volume status. -Follow blood culture results. -Monitor CBC with differential. -Continue home Cardizem, Xarelto, lisinopril, MS Contin, [place]. -Holding home oral Lasix for IV diuresis. -Holding home fluticasone inhaler for now. -CPAP at bedtime. -Low-sodium diet. -PT consult. -DVT prophylaxis: Xarelto. -Disposition: Home when stable, may need home oxygen. Time Spent With Patient Time: Total time spent is greater than 50% in coordination of care (as documented) at patient's floor/unit and/or counseling patient: QUALITY VTE Deep Vein Thrombosis/Pulmonary Embolism Present on Admission: No
[2022-05-27] MEDS: RIVAROXABAN 20 MG TABLET PO SCH (20:49)
[2022-05-27] MEDS: MULTIVIT,THER IRON,CA,FA & MIN 1 TABLET PO SCH (20:49)
[2022-05-27] MEDS: FLUTICASONE HFA 110MCG INHALER INH SCH (20:53)
[2022-05-28] MEDS: HYDROcodone/APAP 10/325MG TABLET PO PRN ×4 (05:16→20:02)
[2022-05-28] MEDS: 0.9 % SODIUM CHLORIDE 10 ML SYRINGE IV SCH ×3 (05:16→20:03)
[2022-05-28] MEDS: morphine 30 MG TAB.SR.12H PO SCH ×3 (06:45→16:44)
[2022-05-28 07:10] LABS: Blood Urea Nitrogen 11 mg/dL (8-23); Calcium 8.6 mg/dL (8.6-10.4); Carbon Dioxide 34 mmol/L (22-30); Chloride 94 mmol/L (96-108); Glomerular Filtration Rate 106; Glucose 93 mg/dL (70-105)
[2022-05-28] MEDS ORDERED: POTASSIUM CHLORIDE 20 MEQ TABLET PO ONE (07:52)
[2022-05-28] MEDS: DOCUSATE SODIUM 100 MG CAPSULE PO SCH ×2 (08:15→20:01)
[2022-05-28] MEDS: predniSONE 20 MG TABLET PO SCH (08:15)
[2022-05-28] MEDS: SENNOSIDES 1 TABLET PO SCH ×2 (08:15→20:02)
[2022-05-28] MEDS: LISINOPRIL 2.5 MG TABLET PO SCH ×2 (08:15→20:02)
[2022-05-28] MEDS: DILTIAZEM 30 MG TABLET PO SCH ×4 (08:15→20:02)
[2022-05-28] MEDS: FUROSEMIDE 40 MG/4 ML VIAL IV SCH ×3 (08:16→20:01)
[2022-05-28] MEDS: cefTRIAXone 1 GM VIAL IV SCH (08:16)
[2022-05-28] MEDS: POTASSIUM CHLORIDE 20 MEQ TABLET PO SCH ×2 (08:16→16:44)
[2022-05-28] MEDS: LACTULOSE 20 GM/30 ML ORAL.SOL PO SCH ×3 (08:21→20:03)
[2022-05-28] MEDS: FLUTICASONE HFA 110MCG INHALER INH SCH ×2 (10:13→20:05)
[2022-05-28] MEDS: METHOCARBAMOL 750 MG TABLET PO SCH ×3 (10:13→20:02)
--- NOTE | 2022-05-28 13:08 | Internal Med Progress Note ---
SUBJECTIVE Subjective Patient information: Note initiated : 05/28/22 at 1:06 pm Service Date, if different from initiated Date: [] Patient: Jennie Smith 71 y/o F admitted on 05/25/22 for SOB 2 days. Chief Complaint: [] Interval history: Ms. Smith is a 71 year old F history of COPD, atrial fibrillation, chronic back pain, complaining of 2-day history of shortness of breath with nonproductive cough and respiratory wheezings. No prior similar episode. No recent travel or sick contact. She is coming of today history of acute onset and persisting shortness of breath with nonproductive cough and respiratory wheezings. She is also commenting of subjective fever but denies any chills. She denies any chest pain or chest pressure. As a result, she was being brought via EMS to our ED last night for further evaluations. Vital signs significant for tachycardia and tachypnea heart rate and rate of breathing in 100s and mid 20s, respectively. Low-grade fever T-max 37.6. She was placed on supplemental oxygen up to 4 L/min via oxygen mask. Labs significant for leukocytosis with WBC 13.4. Rebeca negative, [place] pending. Lactic acid 1.0. Troponin 0.01. Chest x-ray pending. Admission request called for COPD exacerbations plus or minus community-acquired pneumonia. 05/26: Oxygen weaned down to 3 L/min, started Lasix 40 mg IV twice daily for volume overload, sodium down to 129 today. Overall the patient feels like her respiratory status has improved. Continuing ceftriaxone and azithromycin for pneumonia, prednisone for COPD exacerbation. Decreased scheduled DuoNebs frequency to every 6 hours, continue albuterol nebs as needed every 2 hours. 05/27: Weaned off oxygen today, sodium decreased to 126 then up to 1 surgery after s tarting fluid restriction. Continuing diuresis with IV Lasix. Started bowel regimen for constipation. Monitoring sodium closely. 05/28: Weaned down to 2 L/min nasal cannula oxygen, continue to diurese, increase Lasix to 40 mg IV every 8 hours. Potassium supplementation for low normal potassium. Sodium normal today. Resumed home bronchodilator. Head: Atraumatic, normal inspection. Eyes: normal appearance, no scleral icterus. Neck: full ROM Respiratory: bilateral faint crackles present, no respiratory distress. Cardiovascular: normal rate and rhythm, S1, S2. GI/Abdominal: soft, nontender, no guarding. Extremities: Bilateral lower extremity pitting edema up to knees, full range of motion, nontender. Neurological: CN II-XII intact, intact motor, intact sensation. Psychiatric: normal mood. Skin: warm, normal color Constitutional Vitals: Vital Signs Temp Pulse Resp BP Pulse Ox O2 Del Method O2 Flow Rate 97.5 F 80 18 124/84 82 L 2 05/28/22 12:05/28/22 12:05/28/22 12:05/28/22 12:09 05/28/22 12:09 05/28/22 07:41 05/28/22 07:41 Period Temp Pulse Resp BP Sys/Aguirre Pulse Ox O2 Del Method O2 Flow Rate Last 24 Hr 97.4 F-98.3 F 75-96 14-22 114-146/68-84 82-95 CPAP-Room Air, CPAP 0-2 Intake and Output 05/27/22 05/28/22 05/28/22 21:59 05:59 13:59 Intake Total 920 500 Output Total 2350 1000 2150 Balance -1430 -500 -2150 Weight 124.919 kg Intake & Output: Intake & Output 05/27/22 05/28/22 05/28/22 21:59 05:59 13:59 Intake Total 920 500 Output Total 2350 1000 2150 Balance -1430 -500 -2150 Weight 124.919 kg Intake: Oral 920 500 Output: Void Amount 1450 700 Urine/Stool Mix 900 1000 450 Stool 1000 Other: Meal Dinner Percent of Meal Consumed 100% Feeding Ability Independent Urine Appearance Clear Clear Urine Color Bright Yellow Bright Yellow Urine Odor Normal Stool Size Moderate Large Stool Color Brown Brown Brown Stool Consistency Loose Liquid Liquid Watery Loose # Bowel Movements 1 OBJ DATA Labs CBC & Chem 7: 05/26/22 05:17 05/28/22 05:59 Labs: Abnormal Lab Results 05/28/22 05/27/22 05/27/22 05:59 12:01 04:40 Neut % (Auto) Lymph % (Auto) Lymph # (Auto) Absolute Neutrophils Sodium 130 L 126 L Chloride 94 L 86 L Carbon Dioxide 34 H Creatinine 0.4 L 0.5 L Glucose 115 H 05/26/22 05/26/22 05:17 05:17 Neut % (Auto) 86.3 H Lymph % (Auto) 7.7 L Lymph # (Auto) 0.79 L Absolute Neutrophils 8.85 H Sodium 129 L Chloride 90 L Carbon Dioxide Creatinine 0.5 L Glucose 201 H Meds: Medications Acetaminophen (Acetaminophen 325 Mg Tablet) 650 mg PO Q6HP PRN; Protocol PRN Reason: Per Pain Protocol/Fever > 101 Hydrocodone Bitart/Acetaminophen (Hydrocodone/Apap 10/325mg Tablet) 1 - 2 tab PO Q4H PRN; Protocol PRN Reason: pain Last Admin: 05/28/22 10:12 Dose: 2 tab Albuterol Sulfate (Albuterol Sulfate 2.5 Mg/3 Ml Nebulizer) 2.5 mg NEB Q2HP PRN PRN Reason: Shortness Of Breath Ceftriaxone Sodium (Ceftriaxone 1 Gm Vial) 1 gm IV Q24H [facility] Last Admin: 05/28/22 08:16 Dose: 1 gm Diltiazem HCl (Diltiazem 30 Mg Tablet) 60 mg PO ACHS [facility] Last Admin: 05/28/22 12:21 Dose: 60 mg Docusate Sodium (Docusate Sodium 100 Mg Capsule) 100 mg PO BID [facility] Last Admin: 05/28/22 08:15 Dose: 100 mg Fluticasone Propionate (Fluticasone Hfa 110mcg Inhaler) 2 puff INH BID [facility] Last Admin: 05/28/22 10:13 Dose: 2 puff Furosemide (Furosemide 40 Mg/4 Ml Vial) 40 mg IV Q8 [facility] Iron Carb/Multivit/[place]/Folic Acid (Multivit,Ther Iron,Ca,Fa & Min 1 Tablet) 1 tab PO QPM [facility] Last Admin: 05/27/22 20:49 Dose: 1 tab Lactulose (Lactulose 20 Gm/30 Ml Oral.Sangita) 30 gm PO BID [facility] Last Admin: 05/28/22 10:13 Dose: 30 gm Lisinopril (Lisinopril 2.5 Mg Tablet) 2.5 mg PO BID [facility] Last Admin: 05/28/22 08:15 Dose: 2.5 mg Methocarbamol (Methocarbamol 750 Mg Tablet) 750 mg PO TID [facility] Last Admin: 05/28/22 10:13 Dose: 750 mg Morphine Sulfate (Morphine 30 Mg Tab.Sr.12h) 60 mg PO QNOON [facility]; Protocol Last Admin: 05/28/22 12:19 Dose: 60 mg Morphine Sulfate (Morphine 30 Mg Tab.Sr.12h) 90 mg PO BID@0700,1700 [facility] Last Admin: 05/28/22 06:45 Dose: 90 mg Ondansetron HCl (Ondansetron 4 Mg/2 Ml Vial) 4 mg IV Q6HP PRN PRN Reason: Nausea And Vomiting Potassium Chloride (Potassium Chloride 20 Meq Tablet) [facility] Last Admin: 05/28/22 08:16 Dose: 20 meq Prednisone ([facility] Mg Tablet) [facility] Last Admin: 05/28/22 08:15 Dose: 40 mg Rivaroxaban (Rivaroxaban 20 Mg Tablet) 20 mg PO QPM [facility] Last Admin: 05/27/22 20:49 Dose: 20 mg Senna (Sennosides 1 Tablet) 2 tab PO BID [facility] Last Admin: 05/28/22 08:15 Dose: 2 tab Sodium Chloride (0.9 % Sodium Chloride 10 Ml Syringe) 10 ml IV Q8 [facility] Last Admin: 05/28/22 05:16 Dose: 10 ml Trazodone HCl (Trazodone Hcl 50 Mg Tablet) 25 mg PO HSP PRN PRN Reason: Insomnia A/P Narrative A/P Narrative: Assessment: 71-year-old female with multiple comorbidities including a history of COPD, atrial fibrillation, diastolic heart failure, pulmonary hypertension, mitral and tricuspid valve regurgitation, obesity hypoventilation syndrome, obstructive sleep apnea, obesity, chronic back pain, admitted for acute hypoxic respiratory failure felt to be secondary to a COPD exacerbation, community-acq uired pneumonia, and volume overload secondary to diastolic heart failure and pulmonary hypertension. #Resolving acute hypoxic respiratory failure #Acute on chronic diastolic heart failure #Possible community-acquired pneumonia #Moderate pulmonary hypertension #Moderate mitral regurgitation #COPD #Atrial fibrillation #Hypertension #Chronic back pain on long-term opioid therapy #Obstructive sleep apnea #Obesity hypoventilation syndrome #Obesity BMI 51 Plan -Ceftriaxone and azithromycin, treat 5 to 7 days. -Oxygen supplementation, wean as tolerated. -Prednisone for COPD exacerbation, complete 5 days. -Lasix 40 mg IV every 8 hours follow volume status. -Potassium supplementation. -Follow blood culture results. -Monitor CBC with differential. -Continue home Cardizem, Xarelto, lisinopril, MS Contin, [place], fluticasone inhaler. -Holding home oral Lasix for IV diuresis. -CPAP at bedtime. -Low-sodium diet. -PT consult. -DVT prophylaxis: Xarelto. -Disposition: Home when stable, may need home oxygen. Time Spent With Patient Time: Total time spent is greater than 50% in coordination of care (as documented) at patient's floor/unit and/or counseling patient: QUALITY VTE Deep Vein Thrombosis/Pulmonary Embolism Present on Admission: No
[2022-05-28] MEDS: MULTIVIT,THER IRON,CA,FA & MIN 1 TABLET PO SCH (20:01)
[2022-05-28] MEDS: RIVAROXABAN 20 MG TABLET PO SCH (20:02)
[2022-05-29] MEDS: HYDROcodone/APAP 10/325MG TABLET PO PRN ×3 (04:35→21:00)
[2022-05-29] MEDS: FUROSEMIDE 40 MG/4 ML VIAL IV SCH ×3 (05:47→21:00)
[2022-05-29] MEDS: 0.9 % SODIUM CHLORIDE 10 ML SYRINGE IV SCH ×3 (05:47→21:00)
[2022-05-29 07:00] LABS: Blood Urea Nitrogen 12 mg/dL (8-23); Calcium 8.7 mg/dL (8.6-10.4); Carbon Dioxide 38 mmol/L (22-30); Chloride 90 mmol/L (96-108); Glomerular Filtration Rate 106; Glucose 91 mg/dL (70-105)
[2022-05-29] MEDS: LACTULOSE 20 GM/30 ML ORAL.SOL PO SCH (07:51)
[2022-05-29] MEDS: FLUTICASONE HFA 110MCG INHALER INH SCH ×2 (08:04→21:03)
[2022-05-29] MEDS: cefTRIAXone 1 GM VIAL IV SCH (08:05)
[2022-05-29] MEDS: DILTIAZEM 30 MG TABLET PO SCH ×4 (08:05→20:59)
[2022-05-29] MEDS: morphine 30 MG TAB.SR.12H PO SCH ×3 (08:05→17:42)
[2022-05-29] MEDS: SENNOSIDES 1 TABLET PO SCH ×2 (08:05→21:00)
[2022-05-29] MEDS: predniSONE 20 MG TABLET PO SCH (08:06)
[2022-05-29] MEDS: DOCUSATE SODIUM 100 MG CAPSULE PO SCH ×2 (08:06→20:59)
[2022-05-29] MEDS: POTASSIUM CHLORIDE 20 MEQ TABLET PO SCH ×2 (08:06→17:43)
[2022-05-29] MEDS: LISINOPRIL 2.5 MG TABLET PO SCH ×2 (08:06→20:59)
[2022-05-29] MEDS: METHOCARBAMOL 750 MG TABLET PO SCH ×3 (08:06→20:59)
[2022-05-29] MEDS ORDERED: METOLAZONE 2.5 MG TABLET PO SCH (09:00)
--- NOTE | 2022-05-29 11:11 | Internal Med Progress Note ---
SUBJECTIVE Subjective Patient information: Note initiated : 05/29/22 at 11:05 am Service Date, if different from initiated Date: [] Patient: Jennie Smith 71 y/o F admitted on 05/25/22 for SOB 2 days. Chief Complaint: [] Interval history: Ms. Smith is a 71 year old F history of COPD, atrial fibrillation, chronic back pain, complaining of 2-day history of shortness of breath with nonproductive cough and respiratory wheezings. No prior similar episode. No recent travel or sick contact. She is coming of today history of acute onset and persisting shortness of breath with nonproductive cough and respiratory wheezings. She is also commenting of subjective fever but denies any chills. She denies any chest pain or chest pressure. As a result, she was being brought via EMS to our ED last night for further evaluations. Vital signs significant for tachycardia and tachypnea heart rate and rate of breathing in 100s and mid 20s, respectively. Low-grade fever T-max 37.6. She was placed on supplemental oxygen up to 4 L/min via oxygen mask. Labs significant for leukocytosis with WBC 13.4. Rebeca negative, [place] pending. Lactic acid 1.0. Troponin 0.01. Chest x-ray pending. Admission request called for COPD exacerbations plus or minus community-acquired pneumonia. 05/26: Oxygen weaned down to 3 L/min, started Lasix 40 mg IV twice daily for volume overload, sodium down to 129 today. Overall the patient feels like her respiratory status has improved. Continuing ceftriaxone and azithromycin for pneumonia, prednisone for COPD exacerbation. Decreased scheduled DuoNebs frequency to every 6 hours, continue albuterol nebs as needed every 2 hours. 05/27: Weaned off oxygen today, sodium decreased to 126 then up to 1 surgery after starting fluid restriction. Continuing diuresis with IV Lasix. Started bowel regimen for constipation. Monitoring sodium closely. 05/28: Weaned down to 2 L/min nasal cannula oxygen, continue to diurese, increase Lasix to 40 mg IV every 8 hours. Potassium supplementation for low normal potassium. Sodium normal today. Resumed home long-acting beta agonist, discontinued scheduled duo nebs. 05/29: On room air today however required 2 L/min nasal cannula oxygen with CPAP at nighttime. Requested RT perform a overnight oximetry study. Improving volume status, tolerating diuresis well. Added metolazone today for enhanced diuresis. Head: Atraumatic, normal inspection. Eyes: normal appearance, no scleral icterus. Neck: full ROM Respiratory: bilateral faint crackles present, no respiratory distress. Cardiovascular: normal rate and rhythm, S1, S2. GI/Abdominal: soft, nontender, no guarding. Extremities: Bilateral lower extremity pitting edema up to knees, full range of motion, nontender. Neurological: CN II-XII intact, intact motor, intact sensation. Psychiatric: normal mood. Skin: warm, normal color Constitutional Vitals: Vital Signs Temp Pulse Resp BP Pulse Ox O2 Del Method O2 Flow Rate 97.6 F 94 H 20 128/35 93 2 05/29/22 08:02 05/29/22 08:02 05/29/22 08:02 05/29/22 08:02 05/29/22 08:02 05/29/22 04:00 05/29/22 04:00 Period Temp Pulse Resp BP Sys/Aguirer Pulse Ox O2 Del Method O2 Flow Rate Last 24 Hr 97.5 F-97.8 F 73-94 15-20 120-147/35-106 82-96 CPAP-Room Air, CPAP 2-2 Intake and Output 05/28/22 05/29/22 05/29/22 21:59 05:59 13:59 Intake Total 2325 300 170 Output Total 2200 1400 2400 Balance 125 -1100 -2230 Weight 119.93 kg Intake & Output: Intake & Output 05/28/22 05/29/22 05/29/22 21:59 05:59 13:59 Intake Total 2325 300 170 Output Total 2200 1400 2400 Balance 125 -1100 -2230 Weight 119.93 kg Intake: Oral 2325 300 120 GI Tube Flush 50 Output: Void Amount 2200 800 1500 Urine/Stool Mix 600 900 Other: Meal Dinner Breakfast Percent of Meal Consumed 100% 100% Feeding Ability Independent Urine Appearance Clear Clear Clear Urine Color Pale Bright Yellow Yellow Urine Odor Normal Stool Size Large Stool Color Brown Stool Consistency Loose # Bowel Movements 1 OBJ DATA Labs CBC & Chem 7: 05/26/22 05:17 05/29/22 05:21 Labs: Abnormal Lab Results 05/29/22 05/28/22 05/27/22 05:21 05:59 12:01 Sodium 130 L Chloride 90 L 94 L Carbon Dioxide 38 H 34 H Creatinine 0.4 L 0.4 L Glucose 05/27/22 04:40 Sodium 126 L Chloride 86 L Carbon Dioxide Creatinine 0.5 L Glucose 115 H Meds: Medications Acetaminophen (Acetaminophen 325 Mg Tablet) 650 mg PO Q6HP PRN; Protocol PRN Reason: Per Pain Protocol/Fever > 101 Hydrocodone Bitart/Acetaminophen (Hydrocodone/Apap 10/325mg Tablet) 1 - 2 tab PO Q4H PRN; Protocol PRN Reason: pain Last Admin: 05/29/22 04:35 Dose: 2 tab Albuterol Sulfate (Albuterol Sulfate 2.5 Mg/3 Ml Nebulizer) 2.5 mg NEB Q2HP PRN PRN Reason: Shortness Of Breath Ceftriaxone Sodium (Ceftriaxone 1 Gm Vial) 1 gm IV Q24H [facility] Stop: 05/30/22 14:59 Last Admin: 05/29/22 08:05 Dose: 1 gm Diltiazem HCl (Diltiazem 30 Mg Tablet) 60 mg PO ACHS [facility] Last Admin: 05/29/22 08:05 Dose: 60 mg Docusate Sodium (Docusate Sodium 100 Mg Capsule) 100 mg PO BID [facility] Last Admin: 05/29/22 08:06 Dose: 100 mg Fluticasone Propionate (Fluticasone Hfa 110mcg Inhaler) 2 puff INH BID [facility] Last Admin: 05/29/22 08:04 Dose: 2 puff Furosemide (Furosemide 40 Mg/4 Ml Vial) 40 mg IV Q8 [facility] Last Admin: 05/29/22 05:47 Dose: 40 mg Iron Carb/Multivit/[place]/Folic Acid (Multivit,Ther Iron,Ca,Fa & Min 1 Tablet) 1 tab PO QPM [facility] Last Admin: 05/28/22 20:01 Dose: 1 tab Lactulose (Lactulose 20 Gm/30 Ml Oral.[place]) 30 gm PO BID [facility] Last Admin: 05/29/22 07:51 Dose: Not Given Lisinopril (Lisinopril 2.5 Mg Tablet) 2.5 mg PO BID [facility] Last Admin: 05/29/22 08:06 Dose: 2.5 mg Methocarbamol (Methocarbamol 750 Mg Tablet) 750 mg PO TID [facility] Last Admin: 05/29/22 08:06 Dose: 750 mg Morphine Sulfate (Morphine 30 Mg Tab.Sr.12h) 60 mg PO QNOON [facility]; Protocol Last Admin: 05/28/22 12:19 Dose: 60 mg Morphine Sulfate (Morphine 30 Mg Tab.Sr.12h) 90 mg PO BID@0700,1700 [facility] Last Admin: 05/29/22 08:05 Dose: 90 mg Ondansetron HCl (Ondansetron 4 Mg/2 Ml Vial) 4 mg IV Q6HP PRN PRN Reason: Nausea And Vomiting Potassium Chloride (Potassium Chloride 20 Meq Tablet) 20 meq PO BIDCC [facility] Last Admin: 05/29/22 08:06 Dose: 20 meq Pred[facility] ([facility] Mg [facility]: 05/31/22 07:59 Last Admin: 05/29/22 08:06 Dose: 40 mg Rivaroxaban (Rivaroxaban 20 Mg Tablet) 20 mg PO QPM [facility] Last Admin: 05/28/22 20:02 Dose: 20 mg Senna (Sennosides 1 Tablet) 2 tab PO BID [facility] Last Admin: 05/29/22 08:05 Dose: 2 tab Sodium Chloride (0.9 % Sodium Chloride 10 Ml Syringe) 10 ml IV Q8 [facility] Last Admin: 05/29/22 05:47 Dose: 10 ml Trazodone HCl (Trazodone Hcl 50 Mg Tablet) 25 mg PO HSP PRN PRN Reason: Insomnia A/P Narrative A/P Narrative: Assessment: 71-year-old female with multiple comorbidities including a history of COPD, atrial fibrillation, diastolic heart failure, pulmonary hypertension, mitral and tricuspid valve regurgitation, obesity hypoventilation syndrome, obstructive sleep apnea, obesity, chronic back pain, admitted for acute hypoxic respiratory failure likely secondary to acute on chronic diastolic heart failure, possibly attributed by a pneumonia and COPD exacerbation. #Resolve acute hypoxic respiratory failure #Acute on chronic diastolic heart failure #Moderate pulmonary hypertension #Moderate mitral regurgitation #Possible community-acquired pneumonia #Possible COPD exacerbation #Atrial fibrillation #Hypertension #Chronic back pain on long-term opioid therapy #Obstructive sleep apnea #Obesity hypoventilation syndrome #Obesity BMI 51 Plan -Lasix 40 mg IV every 8 hours follow volume status, monitor volume status. -Metolazone 2.5 mg today. -Potassium supplementation as needed. -Complete antibiotics for possible CAP. -Complete prednisone for possible CAP.. -Oxygen supplementation as needed. -Overnight oximetry study. -Monitor electrolytes and renal function. -Continue home Cardizem, Xarelto, lisinopril, MS Contin, [place], fluticasone inhaler. -Holding home oral Lasix for IV diuresis. -CPAP at bedtime. -Low-sodium diet, fluid restriction. -PT consult. -DVT prophylaxis: Xarelto. -Disposition: Home when volume status has improved may need home oxygen at b edtime. Time Spent With Patient Time: Total time spent is greater than 50% in coordination of care (as documented) at patient's floor/unit and/or counseling patient: QUALITY VTE Deep Vein Thrombosis/Pulmonary Embolism Present on Admission: No
[2022-05-29] MEDS: MULTIVIT,THER IRON,CA,FA & MIN 1 TABLET PO SCH (20:59)
[2022-05-29] MEDS: RIVAROXABAN 20 MG TABLET PO SCH (20:59)
[2022-05-30] MEDS: FUROSEMIDE 40 MG/4 ML VIAL IV SCH (05:27)
[2022-05-30] MEDS: HYDROcodone/APAP 10/325MG TABLET PO PRN ×3 (05:28→21:59)
[2022-05-30] MEDS: 0.9 % SODIUM CHLORIDE 10 ML SYRINGE IV SCH ×3 (05:28→20:36)
--- NOTE | 2022-05-30 08:25 | Internal Med Progress Note ---
SUBJECTIVE Subjective Patient information: Note initiated : 05/30/22 at 8:21 am Service Date, if different from initiated Date: [] Patient: Jennie Smith 71 y/o F admitted on 05/25/22 for SOB 2 days. Chief Complaint: [] Interval history: Ms. Smith is a 71 year old F history of COPD, atrial fibrillation, chronic back pain, complaining of 2-day history of shortness of breath with nonproductive cough and respiratory wheezings. No prior similar episode. No recent travel or sick contact. She is coming of today history of acute onset and persisting shortness of breath with nonproductive cough and respiratory wheezings. She is also commenting of subjective fever but denies any chills. She denies any chest pain or chest pressure. As a result, she was being brought via EMS to our ED last night for further evaluations. Vital signs significant for tachycardia and tachypnea heart rate and rate of breathing in 100s and mid 20s, respectively. Low-grade fever T-max 37.6. She was placed on supplemental oxygen up to 4 L/min via oxygen mask. Labs significant for leukocytosis with WBC 13.4. Rebeca negative, [place] pending. Lactic acid 1.0. Troponin 0.01. Chest x-ray pending. Admission request called for COPD exacerbations plus or minus community-acquired pneumonia. 05/26: Oxygen weaned down to 3 L/min, started Lasix 40 mg IV twice daily for volume overload, sodium down to 129 today. Overall the patient feels like her respiratory status has improved. Continuing ceftriaxone and azithromycin for pneumonia, prednisone for COPD exacerbation. Decreased scheduled DuoNebs frequency to every 6 hours, continue albuterol nebs as needed every 2 hours. 05/27: Weaned off oxygen today, sodium decreased to 126 then up to 1 surgery after s tarting fluid restriction. Continuing diuresis with IV Lasix. Started bowel regimen for constipation. Monitoring sodium closely. 05/28: Weaned down to 2 L/min nasal cannula oxygen, continue to diurese, increase Lasix to 40 mg IV every 8 hours. Potassium supplementation for low normal potassium. Sodium normal today. Resumed home long-acting beta agonist, discontinued scheduled duo nebs. 05/29: On room air today however required 2 L/min nasal cannula oxygen with CPAP at nighttime. Requested RT perform a overnight oximetry study. Improving volume status, tolerating diuresis well. Added metolazone today for enhanced diuresis. 05/30: Diuresing well, the patient says it she is near her dry weight but wants to continue diuresing for another day. Moderate diuretic response to metolazone yesterday. Head: Atraumatic, normal inspection. Eyes: normal appearance, no scleral icterus. Neck: full ROM Respiratory: bilateral faint crackles present, no respiratory distress. Cardiovascular: normal rate and rhythm, S1, S2. GI/Abdominal: soft, nontender, no guarding. Extremities: Bilateral lower extremity pitting edema up to knees, full range of motion, nontender. Neurological: CN II-XII intact, intact motor, intact sensation. Psychiatric: normal mood. Skin: warm, normal color Constitutional Vitals: Vital Signs Temp Pulse Resp BP Pulse Ox O2 Del Method O2 Flow Rate 98.1 F 85 18 127/87 92 2 05/30/22 03:18 05/29/22 11:58 05/30/22 03:18 05/30/22 03:18 05/29/22 20:00 05/30/22 06:46 05/30/22 06:46 Period Temp Pulse Resp BP Sys/Aguirre Pulse Ox O2 Del Method O2 Flow Rate Last 24 Hr 97 F-98.6 F 85-88 16-20 120-133/72-100 85-97 CPAP-Room Air 2- 2 Intake and Output 05/29/22 05/30/22 05/30/22 21:59 05:59 13:59 Intake Total 600 450 120 Output Total 1950 2150 851 Balance -1350 -1700 -731 Weight 116.715 kg Intake & Output: Intake & Output 05/29/22 05/30/22 05/30/22 21:59 05:59 13:59 Intake Total 600 450 120 Output Total 1949 2150 851 Balance -1350 -1700 -731 Weight 116.715 kg Intake: Oral 480 450 120 GI Tube Flush 120 Output: Void Amount 19490 850 # of times incontinent of urine 1 Urine/Stool Mix 250 Other: Meal Dinner Percent of Meal Consumed 100% Feeding Ability Independent Urine Appearance Clear Clear Clear Urine Color Pale Yellow Pale Dark Yellow Dark Yellow Urine Odor Normal Stool Size Moderate Stool Consistency Loose OBJ DATA Labs CBC & Chem 7: 05/26/22 05:17 05/29/22 05:21 Labs: Abnormal Lab Results 05/29/22 05/28/22 05/27/22 05:21 05:59 12:01 Sodium 130 L Chloride 90 L 94 L Carbon Dioxide 38 H 34 H Creatinine 0.4 L 0.4 L Meds: Medications Acetaminophen (Acetaminophen 325 Mg Tablet) 650 mg PO Q6HP PRN; Protocol PRN Reason: Per Pain Protocol/Fever > 101 Hydrocodone Bitart/Acetaminophen (Hydrocodone/Apap 10/325mg Tablet) 1 - 2 tab PO Q4H PRN; Protocol PRN Reason: pain Last Admin: 05/30/22 05:28 Dose: 2 tab Albuterol Sulfate (Albuterol Sulfate 2.5 Mg/3 Ml Nebulizer) 2.5 mg NEB Q2HP PRN PRN Reason: Shortness Of Breath Ceftriaxone Sodium (Ceftriaxone 1 Gm Vial) 1 gm IV Q24H [facility] Stop: 05/30/22 14:59 Last Admin: 05/29/22 08:05 Dose: 1 gm Diltiazem HCl (Diltiazem 30 Mg Tablet) 60 mg PO ACHS [facility] Last Admin: 05/29/22 20:59 Dose: 60 mg Docusate Sodium (Docusate Sodium 100 Mg Capsule) 100 mg PO BID [facility] Last Admin: 05/29/22 20:59 Dose: 100 mg Fluticasone Propionate (Fluticasone Hfa 110mcg Inhaler) 2 puff INH BID [facility] Last Admin: 05/29/22 21:03 Dose: 2 puff Furosemide (Furosemide 40 Mg/4 Ml Vial) 40 mg IV Q8 [facility] Last Admin: 05/30/22 05:27 Dose: 40 mg Iron Carb/Multivit/[employer]/Folic Acid (Multivit,Ther Iron,Ca,Fa & Min 1 Tablet) 1 tab PO QPM [facility] Last Admin: 05/29/22 20:59 Dose: 1 tab Lisinopril (Lisinopril 2.5 Mg Tablet) 2.5 mg PO BID [facility] Last Admin: 05/29/22 20:59 Dose: 2.5 mg Methocarbamol (Methocarbamol 750 Mg Tablet) 750 mg PO TID [facility] Last Admin: 05/29/22 20:59 Dose: 750 mg Morphine Sulfate (Morphine 30 Mg Tab.Sr.12h) 60 mg PO QNOON [facility]; Protocol Last Admin: 05/29/22 12:11 Dose: 60 mg Morphine Sulfate (Morphine 30 Mg Tab.Sr.12h) 90 mg PO BID@0700,1700 [facility] Last Admin: 05/29/22 17:42 Dose: 90 mg Ondansetron HCl (Ondansetron 4 Mg/2 Ml Vial) 4 mg IV Q6HP PRN PRN Reason: Nausea And Vomiting Polyethylene Glycol (Polyethylene Glycol 3350 17 Gm Packet) 17 gm PO DAILY [facility] Potassium Chloride (Potassium Chloride 20 Meq Tablet) 20 meq PO BIDCC [facility] Last Admin: 05/29/22 17:43 Dose: 20 meq Prednisone (Prednisone 20 Mg Tablet) 40 mg PO [facility] Stop: 05/31/22 07:59 Last Admin: 05/29/22 08:06 Dose: 40 mg Rivaroxaban (Rivaroxaban 20 Mg Tablet) 20 mg PO QPM [facility] Last Admin: 05/29/22 20:59 Dose: 20 mg Senna (Sennosides 1 Tablet) 2 tab PO BID [facility] Last Admin: 05/29/22 21:00 Dose: Not Given Sodium Chloride (0.9 % Sodium Chloride 10 Ml Syringe) 10 ml IV Q8 [facility] Last Admin: 05/30/22 05:28 Dose: 10 ml Trazodone HCl (Trazodone Hcl 50 Mg Tablet) 25 mg PO HSP PRN PRN Reason: Insomnia A/P Narrative A/P Narrative: Assessment: 71-year-old female with multiple comorbidities including a history of COPD, atrial fibrillation, diastolic heart failure, pulmonary hypertension, mitral and tricuspid valve regurgitation, obesity hypoventilation syndrome, obstructive sleep apnea, obesity, chronic back pain, admitted for acute hypoxic respiratory failure likely secondary to acute on chronic diastolic heart failure, possibly attributed by a pneumonia and COPD exacerbation. #Resolved acute hypoxic respiratory failure #Nocturnal hypoxia, likely chronic #Acute on chronic diastolic heart failure #Moderate pulmonary hypertension #Moderate mitral regurgitation #Possible community-acquired pneumonia #Possible COPD exacerbation #Atrial fibrillation #Hypertension #Chronic back pain on long-term opioid therapy #Obstructive sleep apnea #Obesity hypoventilation syndrome #Obesity BMI 51 Plan -Lasix 40 mg IV every 8 hours follow volume status, monitor volume status. -Follow renal function and electrolytes. -Potassium supplementation as needed. -Oxygen supplementation as needed. -Complete antibiotics for possible CAP. -Complete prednisone for possible CAP. -Unable to perform overnight oximetry study according to respiratory therapy. -Continue home Cardizem, Xarelto, lisinopril, MS Contin, [place], fluticasone inhaler. -Holding home oral Lasix for IV diuresis. -CPAP at bedtime. -Low-sodium diet, fluid restriction. -PT consult. -DVT prophylaxis: Xarelto. -Disposition: Home when volume status is at the patient's baseline. The patient may need nocturnal oxygen supplementation, unable to perform overnight oximetry study during this hospitalization therefore recommend the patient follow-up with the sleep clinic for titration of her CPAP and evaluation for nocturnal oxygen supplementation. Time Spent With Patient Time: Total time spent is greater than 50% in coordination of care (as documented) at patient's floor/unit and/or counseling patient: QUALITY VTE Deep Vein Thrombosis/Pulmonary Embolism Present on Admission: No
[2022-05-30] MEDS: FLUTICASONE HFA 110MCG INHALER INH SCH ×3 (08:29→21:34)
[2022-05-30] MEDS: cefTRIAXone 1 GM VIAL IV SCH (08:29)
[2022-05-30] MEDS: POLYETHYLENE GLYCOL 3350 17 GM PACKET PO SCH (08:29)
[2022-05-30] MEDS: METHOCARBAMOL 750 MG TABLET PO SCH ×3 (08:30→21:58)
[2022-05-30] MEDS: DILTIAZEM 30 MG TABLET PO SCH ×4 (08:30→20:36)
[2022-05-30] MEDS: LISINOPRIL 2.5 MG TABLET PO SCH ×2 (08:30→20:35)
[2022-05-30] MEDS: predniSONE 20 MG TABLET PO SCH (08:30)
[2022-05-30] MEDS: DOCUSATE SODIUM 100 MG CAPSULE PO SCH ×2 (08:30→20:36)
[2022-05-30] MEDS: morphine 30 MG TAB.SR.12H PO SCH ×3 (08:30→17:41)
[2022-05-30] MEDS: SENNOSIDES 1 TABLET PO SCH ×2 (08:30→20:36)
[2022-05-30] MEDS: POTASSIUM CHLORIDE 20 MEQ TABLET PO SCH ×2 (08:31→17:41)
[2022-05-30 08:42] LABS: ALT/SGPT 29 U/L (<40); AST/SGOT 34 U/L (<32); Albumin 3.8 gm/dL (3.2-5.2); Albumin/Globulin Ratio 1.5 (1.0-2.3); Alkaline Phosphatase 74 U/L (39-117); Bilirubin,Direct < 0.2 mg/dL (0-0.3); Bilirubin,Total 0.6 mg/dL (0.1-1.0); Blood Urea Nitrogen 13 mg/dL (8-23); Carbon Dioxide 41 mmol/L (22-30); Chloride 85 mmol/L (96-108); Globulin 2.5 gm/dL (2.2-3.7); Glomerular Filtration Rate 98; Glucose 106 mg/dL (70-105); Lactate Dehydrogenase 198 U/L (135-225); Phosphorous 3.4 mg/dL (2.5-4.5); Triglycerides 43 mg/dL (<150); Uric Acid 5.7 mg/dL (2.5-8.0)
[2022-05-30] MEDS ORDERED: acetaZOLAMIDE 250 MG TABLET PO ONE (11:32)
[2022-05-30] MEDS ORDERED: POTASSIUM CHLORIDE 20 MEQ TABLET PO ONE (11:52)
[2022-05-30] MEDS ORDERED: POTASSIUM CHLORIDE 20 MEQ TABLET PO SCH (12:00)
--- NOTE | 2022-05-30 13:06 | Internal Med Progress Note ---
SUBJECTIVE Subjective Patient information: Note initiated : 05/30/22 at 1:01 pm Service Date, if different from initiated Date: [] Patient: Jennie Smith 71 y/o F admitted on 05/25/22 for SOB 2 days. Chief Complaint: [] Interval history: Ms. Smith is a 71 year old F history of COPD, atrial fibrillation, chronic back pain, complaining of 2-day history of shortness of breath with nonproductive cough and respiratory wheezings. No prior similar episode. No recent travel or sick contact. She is coming of today history of acute onset and persisting shortness of breath with nonproductive cough and respiratory wheezings. She is also commenting of subjective fever but denies any chills. She denies any chest pain or chest pressure. As a result, she was being brought via EMS to our ED last night for further evaluations. Vital signs significant for tachycardia and tachypnea heart rate and rate of breathing in 100s and mid 20s, respectively. Low-grade fever T-max 37.6. She was placed on supplemental oxygen up to 4 L/min via oxygen mask. Labs significant for leukocytosis with WBC 13.4. Rebeca negative, [place] pending. Lactic acid 1.0. Troponin 0.01. Chest x-ray pending. Admission request called for COPD exacerbations plus or minus community-acquired pneumonia. 05/26: Oxygen weaned down to 3 L/min, started Lasix 40 mg IV twice daily for volume overload, sodium down to 129 today. Overall the patient feels like her respiratory status has improved. Continuing ceftriaxone and azithromycin for pneumonia, prednisone for COPD exacerbation. Decreased scheduled DuoNebs frequency to every 6 hours, continue albuterol nebs as needed every 2 hours. 05/27: Weaned off oxygen today, sodium decreased to 126 then up to 1 surgery after s tarting fluid restriction. Continuing diuresis with IV Lasix. Started bowel regimen for constipation. Monitoring sodium closely. 05/28: Weaned down to 2 L/min nasal cannula oxygen, continue to diurese, increase Lasix to 40 mg IV every 8 hours. Potassium supplementation for low normal potassium. Sodium normal today. Resumed home long-acting beta agonist, discontinued scheduled duo nebs. 05/29: On room air today however required 2 L/min nasal cannula oxygen with CPAP at nighttime. Requested RT perform a overnight oximetry study. Improving volume status, tolerating diuresis well. Added metolazone today for enhanced diuresis. 05/30: Diuresing well, the patient says it she is near her dry weight but wants to continue diuresing for another day. Moderate diuretic response to metolazone yesterday. 05/31 Constitutional Vitals: Vital Signs Temp Pulse Resp BP Pulse Ox O2 Del Method O2 Flow Rate 98.4 F 85 18 110/77 91 1 05/30/22 11:34 05/29/22 11:58 05/30/22 03:18 05/30/22 11:34 05/30/22 07:45 05/30/22 11:34 05/30/22 11:34 Period Temp Pulse Resp BP Sys/Aguirre Pulse Ox O2 Del Method O2 Flow Rate Last 24 Hr 97 F-98.6 F 16-20 110-132/72-91 85-94 CPAP-Room Air 1-2 Intake and Output 05/29/22 05/30/22 05/30/22 21:59 05:59 13:59 Intake Total 600 450 240 Output Total 1950 2150 1601 Balance -1350 -1700 -1361 Weight 116.715 kg Intake & Output: Intake & Output 05/29/22 05/30/22 05/30/22 21:59 05:59 13:59 Intake Total 600 450 240 Output Total 1950 2150 1601 Balance -1350 -1700 -1361 Weight 116.715 kg Intake: Oral 480 450 240 GI Tube Flush 120 Output: Void Amount 1950 1900 1600 # of times incontinent of urine 1 Urine/Stool Mix 250 Other: Meal Dinner Breakfast Percent of Meal Consumed 100% 100% Feeding Ability Independent Independent Urine Appearance Clear Clear Clear Urine Color Pale Yellow Yellow Dark Yellow Dark Yellow Urine Odor Normal Stool Size Moderate Stool Consistency Loose Exam: General: Alert, Awake, No acute Distress Eyes/N/T: EOMI, Head/Neck: neck supple, CV: RRR, No murmurs, Pulm: bilateral faint crackles present, no wheezing Abd: soft, nontender, +BS x4 Ext: no clubbing/cyanosis, b/l LE edema to knees Neuro: Alert, no focal deficits, moves all extremities, Skin: warm/dry OBJ DATA Labs CBC & Chem 7: 05/26/22 05:17 05/30/22 06:26 Labs: Abnormal Lab Results 05/30/22 05/29/22 05/28/22 06:26 05:21 05:59 Potassium 3.2 L Chloride 85 L 90 L 94 L Carbon Dioxide 41 H* 38 H 34 H Anion Gap 7.0 L Creatinine 0.5 L 0.4 L 0.4 L Glucose 106 H GGT 51 H AST 34 H Meds: Medications Acetaminophen (Acetaminophen 325 Mg Tablet) 650 mg PO Q6HP PRN; Protocol PRN Reason: Per Pain Protocol/Fever > 101 Hydrocodone Bitart/Acetaminophen (Hydrocodone/Apap 10/325mg Tablet) 1 - 2 tab PO Q4H PRN; Protocol PRN Reason: pain Last Admin: 05/30/22 05:28 Dose: 2 tab Albuterol Sulfate (Albuterol Sulfate 2.5 Mg/3 Ml Nebulizer) 2.5 mg NEB Q2HP PRN PRN Reason: Shortness Of Breath Ceftriaxone Sodium (Ceftriaxone 1 Gm Vial) 1 gm IV Q24H [facility] [place] Stop: 05/30/22 14:59 Last Admin: 05/30/22 08:29 Dose: 1 gm Diltiazem HCl (Diltiazem 30 Mg Tablet) 60 mg PO ACHS [facility] [place] Last Admin: 05/30/22 12:10 Dose: 60 mg Docusate Sodium (Docusate Sodium 100 Mg Capsule) 100 mg PO BID [facility] [place] Last Admin: 05/30/22 08:30 Dose: 100 mg Fluticasone Propionate (Fluticasone Hfa 110mcg Inhaler) 2 puff INH BID [facility] [place] Last Admin: 05/30/22 08:29 Dose: 2 puff Furosemide (Furosemide 40 Mg/4 Ml Vial) 40 mg IV ONCE ONE Stop: 05/30/22 16:01 Iron Carb/Multivit/Physical Meteorologist/Folic Acid (Multivit,Ther Iron,Ca,Fa & Min 1 Tablet) 1 tab PO QPM [facility] [place] Last Admin: 05/29/22 20:59 Dose: 1 tab Lisinopril (Lisinopril 2.5 Mg Tablet) 2.5 mg PO BID [facility] [place] Last Admin: 05/30/22 08:30 Dose: 2.5 mg Methocarbamol (Methocarbamol 750 Mg Tablet) 750 mg PO TID [facility] [place] Last Admin: 05/30/22 08:30 Dose: 750 mg Morphine Sulfate (Morphine 30 Mg Tab.Sr.12h) 60 mg PO QNOON [facility] [place]; Protocol Last Admin: 05/30/22 12:10 Dose: 60 mg Morphine Sulfate (Morphine 30 Mg Tab.Sr.12h) 90 mg PO BID@0700,1700 [facility] [place] Last Admin: 05/30/22 08:30 Dose: 90 mg Ondansetron HCl (Ondansetron 4 Mg/2 Ml Vial) 4 mg IV Q6HP PRN PRN Reason: Nausea And Vomiting Polyethylene Glycol (Polyethylene Glycol 3350 17 Gm Packet) 17 gm PO DAILY [facility] [place] Last Admin: 05/30/22 08:29 Dose: 17 gm Potassium Chloride (Potassium Chloride 20 Meq Tablet) 20 meq PO BIDCC [facility] [place] Last Admin: 05/30/22 08:31 Dose: 20 meq Potassium Chloride (Potassium Chloride 20 Meq Tablet) 40 meq PO 1200 [facility] [place] Stop: 05/30/22 14:00 Last Admin: 05/30/22 12:11 Dose: 40 meq Prednisone (Pred[facility]one 20 Mg Tablet) [facility] Stop: 05/31/22 07:59 Last Admin: 05/30/22 08:30 Dose: 40 mg Rivaroxaban (Rivaroxaban 20 Mg Tablet) 20 mg PO QPM [facility] [place] Last Admin: 05/29/22 20:59 Dose: 20 mg Senna (Sennosides 1 Tablet) 2 tab PO BID [facility] [place] Last Admin: 05/30/22 08:30 Dose: 2 tab Sodium Chloride (0.9 % Sodium Chloride 10 Ml Syringe) 10 ml IV Q8 [facility] [place] Last Admin: 05/30/22 12:11 Dose: 10 ml Trazodone HCl (Trazodone Hcl 50 Mg Tablet) 25 mg PO HSP PRN PRN Reason: Insomnia A/P Narrative A/P Narrative: A: #acute hypoxic respiratory failure: -on 1L [place] #Nocturnal hypoxia, likely chronic: #Acute on chronic diastolic heart failure: #Moderate pulmonary hypertension: #Moderate mitral regurgitation: #Possible community-acquired pneumonia: #Possible COPD exacerbation: #Atrial fibrillation, chronic: #Hypertension: #Chronic back pain on long-term opioid therapy: #Obstructive sleep apnea: #Obesity hypoventilation syndrome: #Obesity: BMI 51 Plan -prn IV Lasix, monitor volume status. fluid restrict -Follow renal function and electrolytes, Potassium supplementation as needed. -Oxygen supplementation as needed. -Complete antibiotics for possible CAP. -Complete prednisone for possible COPD. -Unable to perform overnight oximetry study according to respiratory therapy. -Continue home Cardizem, Xarelto, lisinopril, MS Contin, [place], fluticasone inhaler. -Holding home oral Lasix for IV diuresis. -CPAP at bedtime. -PT consult. -ppx: Xarelto Disposition: Home when volume status is at the patient's baseline. The patient may need nocturnal oxygen supplementation, unable to perform overnight oximetry study during this hospitalization therefore recommend the patient follow-up with the sleep clinic for titration of her CPAP and evaluation for nocturnal oxygen supplementation. Time Spent With Patient Time: Total time spent is greater than 50% in coordination of care (as documented) at patient's floor/unit and/or counseling patient: QUALITY VTE Deep Vein Thrombosis/Pulmonary Embolism Present on Admission: No
--- NOTE | 2022-05-30 15:20 | Discharge Summary ---
Discharge Provider Provider IMPORTANT FOLLOW-UP INFORMATION FOR PCP: Patient information: Note initiated : 05/30/22 at 3:18 pm Service Date, if different from initiated Date: [] Patient: Jennie Smith 71 y/o F admitted on 05/25/22 for SOB 2 days. Chief Complaint: [] Date of admission: 05/25/22 02:21 Discharge date: 05/31/22 Primary care physician: David Bettencourt PA-C Consults: 05/24/22 Consult to Physician [CONS] Stat Comment: Consulting Provider: Adama Bone Reason For Exam: Physician to Consult COURSE Hospital Course Hospital course: Interval history: Ms. Smith is a 71 year old F history of COPD, atrial fibrillation, chronic back pain, complaining of 2-day history of shortness of breath with nonproductive cough and respiratory wheezings. No prior similar episode. No recent travel or sick contact. She is coming of today history of acute onset and persisting shortness of breath with nonproductive cough and respiratory wheezings. She is also commenting of subjective fever but denies any chills. She denies any chest pain or chest pressure. As a result, she was being brought via EMS to our ED last night for further evaluations. Vital signs significant for tachycardia and tachypnea heart rate and rate of breathing in 100s and mid 20s, respectively. Low-grade fever T-max 37.6. She was placed on supplemental oxygen up to 4 L/min via oxygen mask. Labs significant for leukocytosis with WBC 13.4. Rebeca negative, [place] pending. Lactic acid 1.0. Troponin 0.01. Chest x-ray pending. Admission request called for COPD exacerbations plus or minus community-acquired pneumonia. 05/26: Oxygen weaned down to 3 L/min, started Lasix 40 mg IV twice daily for volume overload, sodium down to 129 today. Overall the patient feels like her respiratory status has improved. Continuing ceftriaxone and azithromycin for pneumonia, prednisone for COPD exacerbation. Decreased scheduled DuoNebs frequency to every 6 hours, continue albuterol nebs as needed every 2 hours. 05/27: Weaned off oxygen today, sodium decreased to 126 then up to 1 surgery after starting fluid restriction. Continuing diuresis with IV Lasix. Started bowel regimen for constipation. Monitoring sodium closely. 05/28: Weaned down to 2 L/min nasal cannula oxygen, continue to diurese, increase Lasix to 40 mg IV every 8 hours. Potassium supplementation for low normal potassium. Sodium normal today. Resumed home long-acting beta agonist, discontinued scheduled duo nebs. 05/29: On room air today however required 2 L/min nasal cannula oxygen with CPAP at nighttime. Requested RT perform a overnight oximetry study. Improving volume status, tolerating diuresis well. Added metolazone today for enhanced diuresis. 05/30: Diuresing well, the patient says it she is near her dry weight but wants to continue diuresing for another day. Moderate diuretic response to metolazone yesterday. 05/31 Diuresed well. Patient feeling well. On room air. Although she does need increased oxygen with her CPAP at night. However she needs official sleep study to qualify for adding oxygen at night. But she likely just needs adjustment in her CPAP pressure settings. Will have respiratory therapy adjust her Auto cpap pressure settings and she may do well without not need bleed in oxygen. But we will have her follow-up with pulmonology for official sleep study and adjustment. A: #acute hypoxic respiratory failure: #Nocturnal hypoxia, likely chronic: #Acute on chronic diastolic heart failure: #Moderate pulmonary hypertension: #Moderate mitral regurgitation: #Possible community-acquired pneumonia: #Possible COPD exacerbation: #Atrial fibrillation, chronic: #Hypertension: #Chronic back pain on long-term opioid therapy: #Obstructive sleep apnea: #Obesity hypoventilation syndrome: #Obesity: BMI 51 Plan -Unable to perform overnight oximetry study according to respiratory therapy. -CPAP at bedtime -Follow-up pulmonology for sleep study Discharge diagnosis: Acute hypoxic respite failure acute on chronic heart failure Secondary discharge diagnosis: Pulmonary pretension moderate mitral regurgitation pneumonia COPD atrial fibrillation hypertension chronic pain obstructive sleep apnea obesity hypoventilation syndrome obesity Time Spent with Patient Time attestation: Total time spent providing and/or coordinating discharge services: Time spent: Greater than 30 minutes EXAM Constitutional Vitals: Temp Pulse Resp BP Pulse Ox O2 Del Method O2 Flow Rate 98.4 F 85 18 110/77 91 1 05/30/22 11:34 05/29/22 11:58 05/30/22 03:18 05/30/22 11:34 05/30/22 07:45 05/30/22 11:34 05/30/22 11:34 Discharge Data Data Completed and Pending Labs on day of discharge: Labs from last 24 hours 05/30/22 06:26 Sodium 133 Potassium 3.2 L Chloride 85 L Carbon Dioxide 41 H* Anion Gap 7.0 L BUN 13 Creatinine 0.5 L GFR Calculation 98 Glucose 106 H Uric Acid 5.7 Calcium 9.0 Phosphorus 3.4 Magnesium 2.1 Total Bilirubin 0.6 Direct Bilirubin < 0.2 GGT 51 H AST 34 H ALT 29 Alkaline Phosphatase 74 Lactate Dehydrogenase 198 Total Protein 6.3 Albumin 3.8 Globulin 2.5 Albumin/Globulin Ratio 1.5 Triglycerides 43 Discharge Plan Patient/Caregiver Discharge Instructions Activity: increase activity as tolerated Diet: Cardiac Instructions: Sleep Apnea (GEN), Using Oxygen at Home (GEN), COPD (Chronic Obstructive Pulmonary Disease) (GEN), Low-Sodium Diet (GEN), Pneumonia (GEN) Activity Restrictions/Additional Instructions: Referral to see pulmonology in 3 to 14 days for possible BRYAN and sleep study. Auto CPAP pressure settings adjusted in the meantime by RT. Prescriptions: Continued diltiazem HCl 60 mg tablet 60 mg PO QID 90 Days Qty: 360 0RF albuterol sulfate [Ventolin HFA] 90 mcg/actuation HFA aerosol inhaler See Rx Instructions .ROUTE .COMPLEX Qty: 54 0RF Dose Instruction: INHALE 2 PUFFS BY INHALATION ROUTE EVERY 4-6 HOURS NEEDED FOR COUGH, WHEEZE, SHORTNESS OF BREATH. Rx Instructions: INHALE 2 PUFFS BY INHALATION ROUTE EVERY 4-6 HOURS NEEDED FOR COUGH, WHEEZE, SHORTNESS OF BREATH. lisinopril 2.5 mg tablet 2.5 mg PO BID 90 Days Qty: 180 3RF fluticasone propionate 110 mcg/actuation HFA aerosol inhaler 2 puff INHALATION BID 90 Days Qty: 72 0RF rivaroxaban 20 mg tablet 20 mg PO QPM Rx Instructions: 20 mg PO QDAy with evening meal; administer with evening meal potassium chloride 20 mEq tablet extended release 20 meq PO BID Rx Instructions: 20 mEq PO BID with food polyethylene glycol 3350 [Miralax] 17 gram/dose powder 17 g PO QAM furosemide 40 mg tablet 40 mg PO BID 90 Days Qty: 200 3RF Narcan 4 mg/actuation spray,non-aerosol 1 spray INTRANASAL .COMPLEX Qty: 2 0RF Rx Instructions: For emergency, 1 spray intranasal administer in each nostril in event of suspected overdose; call 911 hydrocodone-acetaminophen 10-325 mg tablet 1 - 2 tab PO Q4H MDD 8 PRN (Reason: pain) Qty: 240 0RF Rx Instructions: *MUST LAST 30 DAYS*, P/U 06/07 (due to weekend), Start 06/09 morphine [MS Contin] 100 mg tablet extended release 100 mg PO Q12H MDD 2 Qty: 60 0RF Rx Instructions: *MUST LAST 30 DAYS*, P/U 06/07 (due to weekend), Start 06/09 sennosides 1 TAB tablet 2 tab PO BID 0RF ondansetron 4 mg tablet,disintegrating 4 mg PO Q8H PRN (Reason: nausea and vomiting) Qty: 20 0RF Centrum Silver Women 8 mg iron-400 mcg-300 mcg Tablet 1 tab PO QPM methocarbamol 750 mg tablet 750 mg PO TID morphine [MS Contin] 60 mg tablet extended release 60 mg PO QNOON MDD 1 Rx Instructions: *MUST LAST 30 DAYS*, P/U 06/07 (due to weekend), Start 06/09 Follow Up Plan Follow up with: David Bettencourt PA-C [Primary Care Provider] - 06/04/22 2:45 pm Galen Becerra MD [Physician] - (A referral has been sent, they will contact you to schedule an appointment) Patient Disposition: Home, Self-Care Prognosis: Fair Overall status at discharge: patient is progressing back to baseline Discharge Orders: Discharge Order (Routine); Ordered 05/31/22 Ordered By: Tiot Cross [facility] VTE Deep Vein Thrombosis/Pulmonary Embolism Present on Admission: No
[2022-05-30] MEDS ORDERED: HYDROCHLOROTHIAZIDE 12.5 MG CAPSULE PO SCH (16:00)
[2022-05-30] MEDS ORDERED: FUROSEMIDE 40 MG/4 ML VIAL IV ONE (16:00)
[2022-05-30] MEDS: MULTIVIT,THER IRON,CA,FA & MIN 1 TABLET PO SCH (20:36)
[2022-05-30] MEDS: RIVAROXABAN 20 MG TABLET PO SCH (20:36)
[2022-05-31] MEDS: 0.9 % SODIUM CHLORIDE 10 ML SYRINGE IV SCH (06:02)
--- NOTE | 2022-05-31 07:14 | Internal Med Progress Note ---
SUBJECTIVE Subjective Patient information: Note initiated : 05/31/22 at 7:14 am Service Date, if different from initiated Date: [] Patient: Jennie Smith 71 y/o F admitted on 05/25/22 for SOB 2 days. Chief Complaint: [] Interval history: Ms. Smith is a 71 year old F history of COPD, atrial fibrillation, chronic back pain, complaining of 2-day history of shortness of breath with nonproductive cough and respiratory wheezings. No prior similar episode. No recent travel or sick contact. She is coming of today history of acute onset and persisting shortness of breath with nonproductive cough and respiratory wheezings. She is also commenting of subjective fever but denies any chills. She denies any chest pain or chest pressure. As a result, she was being brought via EMS to our ED last night for further evaluations. Vital signs significant for tachycardia and tachypnea heart rate and rate of breathing in 100s and mid 20s, respectively. Low-grade fever T-max 37.6. She was placed on supplemental oxygen up to 4 L/min via oxygen mask. Labs significant for leukocytosis with WBC 13.4. Rebeca negative, [place] pending. Lactic acid 1.0. Troponin 0.01. Chest x-ray pending. Admission request called for COPD exacerbations plus or minus community-acquired pneumonia. 05/26: Oxygen weaned down to 3 L/min, started Lasix 40 mg IV twice daily for volume overload, sodium down to 129 today. Overall the patient feels like her respiratory status has improved. Continuing ceftriaxone and azithromycin for pneumonia, prednisone for COPD exacerbation. Decreased scheduled DuoNebs frequency to every 6 hours, continue albuterol nebs as needed every 2 hours. 05/27: Weaned off oxygen today, sodium decreased to 126 then up to 1 surgery after s tarting fluid restriction. Continuing diuresis with IV Lasix. Started bowel regimen for constipation. Monitoring sodium closely. 05/28: Weaned down to 2 L/min nasal cannula oxygen, continue to diurese, increase Lasix to 40 mg IV every 8 hours. Potassium supplementation for low normal potassium. Sodium normal today. Resumed home long-acting beta agonist, discontinued scheduled duo nebs. 05/29: On room air today however required 2 L/min nasal cannula oxygen with CPAP at nighttime. Requested RT perform a overnight oximetry study. Improving volume status, tolerating diuresis well. Added metolazone today for enhanced diuresis. 05/30: Diuresing well, the patient says it she is near her dry weight but wants to continue diuresing for another day. Moderate diuretic response to metolazone yesterday. 05/31 Constitutional Vitals: Vital Signs Temp Pulse Resp BP Pulse Ox O2 Del Method O2 Flow Rate 98.4 F 74 16 143/93 95 4 05/31/22 07:13 05/31/22 00:00 05/31/22 07:13 05/31/22 07:13 05/31/22 07:13 05/31/22 07:13 05/31/22 07:13 Period Temp Pulse Resp BP Sys/Aguirre Pulse Ox O2 Del Method O2 Flow Rate Last 24 Hr 97.4 F-98.4 F 74-84 16-20 110-143/67-93 85-95 CPAP-Room Air 1-4 Intake and Output 05/30/22 05/31/22 05/31/22 21:59 05:59 13:59 Intake Total 600 360 Output Total 1500 1000 Balance -900 -640 Weight 118.07 kg Intake & Output: Intake & Output 05/30/22 05/31/22 05/31/22 21:59 05:59 13:59 Intake Total 600 360 Output Total 1500 1000 Balance -900 -640 Weight 118.07 kg Intake: Oral 480 360 GI Tube Flush 120 Output: Void Amount 1500 1000 Other: Meal Lunch Percent of Meal Consumed 100% Feeding Ability Independent Urine Appearance Clear Urine Color Dark Yellow Exam: General: Alert, Awake, No acute Distress Eyes/N/T: EOMI, Head/Neck: neck supple, CV: RRR, No murmurs, Pulm: bilateral faint crackles present, no wheezing Abd: soft, nontender, +BS x4 Ext: no clubbing/cyanosis, b/l LE edema to knees Neuro: Alert, no focal deficits, moves all extremities, Skin: warm/dry OBJ DATA Labs CBC & Chem 7: 05/26/22 05:17 05/31/22 06:03 Labs: Abnormal Lab Results 05/30/22 05/29/22 06:26 05:21 Potassium 3.2 L Chloride 85 L 90 L Carbon Dioxide 41 H* 38 H Anion Gap 7.0 L Creatinine 0.5 L 0.4 L Glucose 106 H GGT 51 H AST 34 H Meds: Medications Acetaminophen (Acetaminophen 325 Mg Tablet) 650 mg PO Q6HP PRN; Protocol PRN Reason: Per Pain Protocol/Fever > 101 Hydrocodone Bitart/Acetaminophen (Hydrocodone/Apap 10/325mg Tablet) 1 - 2 tab PO Q4H PRN; Protocol PRN Reason: pain Last Admin: 05/30/22 21:59 Dose: 2 tab Albuterol Sulfate (Albuterol Sulfate 2.5 Mg/3 Ml Nebulizer) 2.5 mg NEB Q2HP PRN PRN Reason: Shortness Of Breath Diltiazem HCl (Diltiazem 30 Mg Tablet) 60 mg PO ACHS [facility] Last Admin: 05/30/22 20:36 Dose: 60 mg Docusate Sodium (Docusate Sodium 100 Mg Capsule) 100 mg PO BID [facility] Last Admin: 05/30/22 20:36 Dose: 100 mg Fluticasone Propionate (Fluticasone Hfa 110mcg Inhaler) 2 puff INH BID [facility] Last Admin: 05/30/22 21:34 Dose: 2 puff Iron Carb/Multivit/[employer]/Folic Acid (Multivit,Ther Iron,Ca,Fa & Min 1 Tablet) 1 tab PO QPM [facility] Last Admin: 05/30/22 20:36 Dose: 1 tab Lisinopril (Lisinopril 2.5 Mg Tablet) 2.5 mg PO BID [facility] Last Admin: 05/30/22 20:35 Dose: 2.5 mg Methocarbamol (Methocarbamol 750 Mg Tablet) 750 mg PO TID [facility] Last Admin: 05/30/22 21:58 Dose: 750 mg Morphine Sulfate (Morphine 30 Mg Tab.Sr.12h) 60 mg PO QNOON [facility]; Protocol Last Admin: 05/30/22 12:10 Dose: 60 mg Morphine Sulfate (Morphine 30 Mg Tab.Sr.12h) 90 mg PO BID@0700,1700 [facility] Last Admin: 05/30/22 17:41 Dose: 90 mg Ondansetron HCl (Ondansetron 4 Mg/2 Ml Vial) 4 mg IV Q6HP PRN PRN Reason: Nausea And Vomiting Polyethylene Glycol (Polyethylene Glycol 3350 17 Gm Packet) 17 gm PO DAILY [facility] Last Admin: 05/30/22 08:29 Dose: 17 gm Potassium Chloride (Potassium Chloride 20 Meq Tablet) 20 meq PO BIDCC [facility] Last Admin: 05/30/22 17:41 Dose: 20 meq Prednisone ([facility] 20 Mg Tablet) [facility] Stop: 05/31/22 07:59 Last Admin: 05/30/22 08:30 Dose: 40 mg Rivaroxaban (Rivaroxaban 20 Mg Tablet) 20 mg PO QPM [facility] Last Admin: 05/30/22 20:36 Dose: 20 mg Senna (Sennosides 1 Tablet) 2 tab PO BID [facility] Last Admin: 05/30/22 20:36 Dose: 2 tab Sodium Chloride (0.9 % Sodium Chloride 10 Ml Syringe) 10 ml IV Q8 [facility] Last Admin: 05/31/22 06:02 Dose: Not Given Trazodone HCl (Trazodone Hcl 50 Mg Tablet) 25 mg PO HSP PRN PRN Reason: Insomnia A/P Narrative A/P Narrative: A: #acute hypoxic respiratory failure: -on 1L [place] #Nocturnal hypoxia, likely chronic: #Acute on chronic diastolic heart failure: #Moderate pulmonary hypertension: #Moderate mitral regurgitation: #Possible community-acquired pneumonia: #Possible COPD exacerbation: #Atrial fibrillation, chronic: #Hypertension: #Chronic back pain on long-term opioid therapy: #Obstructive sleep apnea: #Obesity hypoventilation syndrome: #Obesity: BMI 51 Plan -prn IV Lasix, monitor volume status. fluid restrict -Follow renal function and electrolytes, Potassium supplementation as needed. -Oxygen supplementation as needed. -Complete antibiotics for possible CAP. -Complete prednisone for possible COPD. -Unable to perform overnight oximetry study according to respiratory therapy. -Continue home Cardizem, Xarelto, lisinopril, MS Contin, [place], fluticasone inhaler. -Holding home oral Lasix for IV diuresis. -CPAP at bedtime. -PT consult. -ppx: Xarelto Disposition: Home when volume status is at the patient's baseline. The patient may need nocturnal oxygen supplementation, unable to perform overnight oximetry study during this hospitalization therefore recommend the patient follow-up with the sleep clinic for titration of her CPAP and evaluation for nocturnal oxygen supplementation. Time Spent With Patient Time: Total time spent is greater than 50% in coordination of care (as documented) at patient's floor/unit and/or counseling patient: QUALITY VTE Deep Vein Thrombosis/Pulmonary Embolism Present on Admission: No
[2022-05-31] MEDS: morphine 30 MG TAB.SR.12H PO SCH (07:22)
[2022-05-31] MEDS: DILTIAZEM 30 MG TABLET PO SCH (07:23)
[2022-05-31] MEDS: POTASSIUM CHLORIDE 20 MEQ TABLET PO SCH (07:23)
[2022-05-31 07:42] LABS: ALT/SGPT 34 U/L (<40); AST/SGOT 42 U/L (<32); Albumin 3.6 gm/dL (3.2-5.2); Albumin/Globulin Ratio 1.4 (1.0-2.3); Alkaline Phosphatase 77 U/L (39-117); Bilirubin,Direct < 0.2 mg/dL (0-0.3); Bilirubin,Total 0.6 mg/dL (0.1-1.0); Blood Urea Nitrogen 19 mg/dL (8-23); Calcium 9.1 mg/dL (8.6-10.4); Carbon Dioxide 34 mmol/L (22-30); Chloride 89 mmol/L (96-108); Globulin 2.5 gm/dL (2.2-3.7); Glomerular Filtration Rate 88; Glucose 110 mg/dL (70-105); Lactate Dehydrogenase 193 U/L (135-225); Phosphorous 4.1 mg/dL (2.5-4.5); Triglycerides 34 mg/dL (<150); Uric Acid 6.1 mg/dL (2.5-8.0)
[2022-05-31] MEDS ORDERED: POLYETHYLENE GLYCOL 3350 17 GM PACKET PO ONE (08:58)
[2022-05-31] MEDS ORDERED: SENNOSIDES 1 TABLET PO ONE (08:58)
[2022-05-31] MEDS: POLYETHYLENE GLYCOL 3350 17 GM PACKET PO SCH (09:22)
[2022-05-31] MEDS: LISINOPRIL 2.5 MG TABLET PO SCH (09:22)
[2022-05-31] MEDS: SENNOSIDES 1 TABLET PO SCH (09:22)
[2022-05-31] MEDS: DOCUSATE SODIUM 100 MG CAPSULE PO SCH (09:22)
[2022-05-31] MEDS: HYDROcodone/APAP 10/325MG TABLET PO PRN (10:01)
[2022-05-31] MEDS: FLUTICASONE HFA 110MCG INHALER INH SCH (10:01)
[2022-05-31] MEDS: METHOCARBAMOL 750 MG TABLET PO SCH (10:01)
== END 2022-05-31 11:23 | disposition home or self-care (01) | DRG 189 ==
LOC: ED 21:35 → ICU 05-25 02:21
PROVIDERS: ADMIT Internal Medicine; ATTEND Internal Medicine

== ENCOUNTER 2025-04-30 22:33 | Inpatient (IN) ==
[2025-04-30] MEDS: IPRATROPIUM/ALBUTEROL 3 ML AMPUL.NEB NEB ONE (23:13)
[2025-04-30] MEDS: FAMOTIDINE/PF 20 MG/2 ML VIAL IV ONE (23:34)
[2025-04-30] MEDS: diphenhydrAMINE 50 MG/ML VIAL IV ONE (23:34)
[2025-04-30 23:46] LABS: Basophils # (Auto) 0.03 K/mcL (0.00-0.30); Basophils % (Auto) 0.2 % (0.0-2.0); Eosinophils # (Auto) 0.01 K/mcL (0.00-0.70); Eosinophils % (Auto) 0.1 % (0.0-7.0); Hematocrit 33.3 % (34.1-44.9); Hemoglobin 10.5 g/dL (11.2-15.7); Lymphocytes # (Auto) 0.76 K/mcL (1.50-4.80); Lymphocytes % (Auto) 5.8 % (15.5-49.0); Mean Corpuscular HGB Conc 31.5 g/dL (31.0-36.0); Monocytes # (Auto) 2.14 K/mcL (0.10-0.90); Monocytes % (Auto) 16.5 % (1.0-12.0); Neutrophils % (Auto) 76.4 % (38.0-78.0); Platelet Count 632 K/mcL (140-440); RBC 3.40 M/mcL (3.59-5.38); WBC 13.0 K/mcL (4.5-11.0)
[2025-04-30 23:59] LABS: INR 3.6 (0.9-1.1); Prothrombin Time 38.4 sec (11.9-14.5)
[2025-05-01 00:33] LABS: Anion Gap 7.0 (8.0-16.0); Blood Urea Nitrogen 12 mg/dL (8-23); Calcium 8.8 mg/dL (8.6-10.4); Carbon Dioxide 35 mmol/L (22-30); Chloride 90 mmol/L (96-108); Glucose 215 mg/dL (70-105); Potassium 5.0 mmol/L (3.3-5.1); Sodium 132 mmol/L (133-145)
[2025-05-01] MEDS: cefTRIAXone 1 GM VIAL IV ONE (03:52)
[2025-05-01] MEDS: AZITHROMYCIN 500 MG in DEXTROSE 5% IN WATER 250 ML IV ONE (03:52)
[2025-05-01] MEDS: FUROSEMIDE 40 MG/4 ML VIAL IV ONE (05:43)
[2025-05-01] MEDS ORDERED: LACTULOSE 20 GM/30 ML ORAL.SOL PO PRN (11:37)
[2025-05-01] MEDS ORDERED: guaiFENesin/DEXTROMETHORPHAN 5ML UD CUP PO PRN (11:37)
[2025-05-01] MEDS ORDERED: ACETAMINOPHEN 325 MG TABLET PO PRN (11:37)
[2025-05-01] MEDS ORDERED: SENNOSIDES 1 TABLET PO PRN ×2 (11:37→21:00)
[2025-05-01] MEDS: ONDANSETRON 4 MG/2 ML VIAL IV PRN (12:17)
[2025-05-01] MEDS: 0.9 % SODIUM CHLORIDE 10 ML SYRINGE IV SCH (12:18)
[2025-05-01] MEDS ORDERED: METOPROLOL TARTRATE 5 MG/5 ML VIAL IV PRN (13:27)
[2025-05-01] MEDS: morphine 30 MG TAB.SR.12H PO SCH (14:06)
[2025-05-01] MEDS: METHOCARBAMOL 750 MG TABLET PO PRN (14:06)
[2025-05-01] MEDS: LIDOCAINE 4% TOP PATCH TOPICAL SCH (14:06)
[2025-05-01] MEDS: METOPROLOL TARTRATE 5 MG/5 ML VIAL IV PRN (14:31)
[2025-05-01] MEDS: LEVALBUTEROL 1.25 MG/3 ML AMPUL.NEB NEB SCH (15:04)
[2025-05-01] MEDS: HYDROcodone/APAP 10/325MG TABLET PO PRN (16:57)
[2025-05-01] MEDS: RIVAROXABAN 20 MG TABLET PO SCH (16:57)
[2025-05-01] MEDS: FUROSEMIDE 40 MG/4 ML VIAL IV SCH (16:57)
[2025-05-01] MEDS: cefTRIAXone 2 GM in DEXTROSE 5% IN WATER 50 ML IV SCH (16:58)
[2025-05-01] MEDS: DILTIAZEM 30 MG TABLET PO SCH (16:58)
[2025-05-01] MEDS: AZITHROMYCIN 500 MG in DEXTROSE 5% IN WATER 250 ML IV SCH (16:58)
[2025-05-01] MEDS: POTASSIUM CHLORIDE 20 MEQ TABLET PO SCH ×2 (17:14)
[2025-05-01] MEDS: DOCUSATE SODIUM 100 MG CAPSULE PO SCH (20:20)
[2025-05-01] MEDS: guaiFENesin 600 MG TAB.SR.12H PO SCH (20:20)
[2025-05-01] MEDS: METHOCARBAMOL 750 MG TABLET PO SCH (20:20)
[2025-05-02 06:11] LABS: Basophils # (Auto) 0.03 K/mcL (0.00-0.30); Basophils % (Auto) 0.3 % (0.0-2.0); Eosinophils # (Auto) 0 K/mcL (0.00-0.70); Eosinophils % (Auto) 0 % (0.0-7.0); Hematocrit 36.3 % (34.1-44.9); Hemoglobin 11.3 g/dL (11.2-15.7); Lymphocytes # (Auto) 0.41 K/mcL (1.50-4.80); Lymphocytes % (Auto) 4.1 % (15.5-49.0); Mean Corpuscular HGB Conc 31.1 g/dL (31.0-36.0); Monocytes # (Auto) 0.35 K/mcL (0.10-0.90); Monocytes % (Auto) 3.5 % (1.0-12.0); Neutrophils % (Auto) 91.1 % (38.0-78.0); Platelet Count 529 K/mcL (140-440); RBC 3.63 M/mcL (3.59-5.38); WBC 10.0 K/mcL (4.5-11.0)
[2025-05-02] MEDS: PANTOPRAZOLE 40 MG TABLET PO SCH (06:41)
[2025-05-02 06:54] LABS: ALT/SGPT 24 U/L (<40); AST/SGOT 52 U/L (<32); Albumin 2.6 gm/dL (3.2-5.2); Albumin/Globulin Ratio 0.8 (1.0-2.3); Alkaline Phosphatase 115 U/L (39-117); Anion Gap 6.0 (8.0-16.0); Bilirubin,Total 0.5 mg/dL (0.1-1.0); Blood Urea Nitrogen 12 mg/dL (8-23); Calcium 8.7 mg/dL (8.6-10.4); Carbon Dioxide 35 mmol/L (22-30); Chloride 89 mmol/L (96-108); Globulin 3.2 gm/dL (2.2-3.7); Glucose 224 mg/dL (70-105); Potassium 5.6 mmol/L (3.3-5.1); Sodium 130 mmol/L (133-145)
[2025-05-02] MEDS: CALCIUM CARBONATE 500 MG TAB.CHEW CHEWED SCH (08:48)
[2025-05-02] MEDS: FLUTICASONE UMECLIDIN VILANTER INH SCH (08:48)
[2025-05-02] MEDS: MULTIVIT,THER IRON,CA,FA & MIN 1 TABLET PO SCH (08:48)
[2025-05-02] MEDS: SENNOSIDES 1 TABLET PO SCH (08:49)
[2025-05-02] MEDS: POLYETHYLENE GLYCOL 3350 17 GM PACKET PO SCH (08:49)
[2025-05-02] MEDS ORDERED: ENOXAPARIN 40 MG/0.4 ML SYRINGE SQ SCH (09:00)
[2025-05-03 06:06] LABS: Basophils # (Auto) 0.01 K/mcL (0.00-0.30); Basophils % (Auto) 0.1 % (0.0-2.0); Eosinophils # (Auto) 0 K/mcL (0.00-0.70); Eosinophils % (Auto) 0 % (0.0-7.0); Hematocrit 33.2 % (34.1-44.9); Hemoglobin 10.4 g/dL (11.2-15.7); Lymphocytes # (Auto) 0.43 K/mcL (1.50-4.80); Lymphocytes % (Auto) 5.4 % (15.5-49.0); Mean Corpuscular HGB Conc 31.3 g/dL (31.0-36.0); Monocytes # (Auto) 0.57 K/mcL (0.10-0.90); Monocytes % (Auto) 7.1 % (1.0-12.0); Neutrophils % (Auto) 86.3 % (38.0-78.0); Platelet Count 702 K/mcL (140-440); RBC 3.36 M/mcL (3.59-5.38); WBC 8.0 K/mcL (4.5-11.0)
[2025-05-03 06:41] LABS: ALT/SGPT 19 U/L (<40); AST/SGOT 38 U/L (<32); Albumin 2.6 gm/dL (3.2-5.2); Albumin/Globulin Ratio 0.9 (1.0-2.3); Alkaline Phosphatase 119 U/L (39-117); Anion Gap 7.0 (8.0-16.0); Bilirubin,Total 0.4 mg/dL (0.1-1.0); Blood Urea Nitrogen 20 mg/dL (8-23); Calcium 8.7 mg/dL (8.6-10.4); Carbon Dioxide 36 mmol/L (22-30); Chloride 88 mmol/L (96-108); Globulin 2.9 gm/dL (2.2-3.7); Glucose 348 mg/dL (70-105); Potassium 4.7 mmol/L (3.3-5.1); Sodium 131 mmol/L (133-145)
[2025-05-03] MEDS: FUROSEMIDE 40 MG TABLET PO SCH (16:12)
[2025-05-04 06:55] LABS: Basophils # (Auto) 0.01 K/mcL (0.00-0.30); Basophils % (Auto) 0.1 % (0.0-2.0); Eosinophils # (Auto) 0 K/mcL (0.00-0.70); Eosinophils % (Auto) 0 % (0.0-7.0); Hematocrit 34.6 % (34.1-44.9); Hemoglobin 10.8 g/dL (11.2-15.7); Lymphocytes # (Auto) 0.39 K/mcL (1.50-4.80); Lymphocytes % (Auto) 5.2 % (15.5-49.0); Mean Corpuscular HGB Conc 31.2 g/dL (31.0-36.0); Monocytes # (Auto) 0.67 K/mcL (0.10-0.90); Monocytes % (Auto) 9.0 % (1.0-12.0); Neutrophils % (Auto) 85.0 % (38.0-78.0); Platelet Count 740 K/mcL (140-440); RBC 3.52 M/mcL (3.59-5.38); WBC 7.5 K/mcL (4.5-11.0)
[2025-05-04 07:21] LABS: ALT/SGPT 20 U/L (<40); AST/SGOT 35 U/L (<32); Albumin 2.7 gm/dL (3.2-5.2); Albumin/Globulin Ratio 0.9 (1.0-2.3); Alkaline Phosphatase 141 U/L (39-117); Anion Gap 9.0 (8.0-16.0); Bilirubin,Total 0.4 mg/dL (0.1-1.0); Blood Urea Nitrogen 23 mg/dL (8-23); Calcium 8.8 mg/dL (8.6-10.4); Carbon Dioxide 35 mmol/L (22-30); Chloride 89 mmol/L (96-108); Globulin 2.9 gm/dL (2.2-3.7); Glucose 426 mg/dL (70-105); Potassium 5.0 mmol/L (3.3-5.1); Sodium 133 mmol/L (133-145)
[2025-05-05 06:19] LABS: Basophils # (Auto) 0.01 K/mcL (0.00-0.30); Basophils % (Auto) 0.1 % (0.0-2.0); Eosinophils # (Auto) 0 K/mcL (0.00-0.70); Eosinophils % (Auto) 0 % (0.0-7.0); Hematocrit 34.8 % (34.1-44.9); Hemoglobin 11.1 g/dL (11.2-15.7); Lymphocytes # (Auto) 0.29 K/mcL (1.50-4.80); Lymphocytes % (Auto) 3.9 % (15.5-49.0); Mean Corpuscular HGB Conc 31.9 g/dL (31.0-36.0); Monocytes # (Auto) 0.68 K/mcL (0.10-0.90); Monocytes % (Auto) 9.1 % (1.0-12.0); Neutrophils % (Auto) 85.8 % (38.0-78.0); Platelet Count 792 K/mcL (140-440); RBC 3.58 M/mcL (3.59-5.38); WBC 7.5 K/mcL (4.5-11.0)
[2025-05-05 06:36] LABS: ALT/SGPT 27 U/L (<40); AST/SGOT 47 U/L (<32); Albumin 3.0 gm/dL (3.2-5.2); Albumin/Globulin Ratio 1.2 (1.0-2.3); Alkaline Phosphatase 176 U/L (39-117); Anion Gap 9.0 (8.0-16.0); Bilirubin,Total 0.4 mg/dL (0.1-1.0); Blood Urea Nitrogen 22 mg/dL (8-23); Calcium 8.8 mg/dL (8.6-10.4); Carbon Dioxide 36 mmol/L (22-30); Chloride 88 mmol/L (96-108); Globulin 2.6 gm/dL (2.2-3.7); Glucose 440 mg/dL (70-105); Potassium 4.1 mmol/L (3.3-5.1); Sodium 133 mmol/L (133-145)
[2025-05-05] MEDS: IPRATROPIUM/ALBUTEROL 3 ML AMPUL.NEB NEB PRN (07:16)
[2025-05-05] MEDS ORDERED: DEXTROSE 50% 50 ML VIAL IV PRN (10:01)
[2025-05-05] MEDS ORDERED: DEXTROSE 31 GM ORAL.SUSP PO PRN (10:01)
[2025-05-05 10:51] LABS: Estimated Average Glucose(eAG) 131 mg/dL; Hemoglobin A1C 6.2 % Hgb (4.0-6.0)
[2025-05-05] MEDS: LOPERAMIDE 2 MG CAPSULE PO PRN (11:57)
[2025-05-05] MEDS: INSULIN LISPRO 1 UNIT/0.01 ML UNIT SQ SCH (11:57)
[2025-05-05] MEDS: MELATONIN 3 MG TABLET PO PRN (20:25)
[2025-05-05] MEDS: BUDESONIDE 0.5 MG/2 ML AMPUL.NEB NEB SCH (21:18)
[2025-05-06 07:01] LABS: ALT/SGPT 31 U/L (<40); AST/SGOT 58 U/L (<32); Albumin 2.6 gm/dL (3.2-5.2); Albumin/Globulin Ratio 1.2 (1.0-2.3); Alkaline Phosphatase 124 U/L (39-117); Anion Gap 5.0 (8.0-16.0); Bilirubin,Direct 0.2 mg/dL (<0.3); Bilirubin,Total 0.4 mg/dL (0.1-1.0); Blood Urea Nitrogen 25 mg/dL (8-23); Calcium 8.4 mg/dL (8.6-10.4); Carbon Dioxide 38 mmol/L (22-30); Chloride 91 mmol/L (96-108); Globulin 2.1 gm/dL (2.2-3.7); Glucose 256 mg/dL (70-105); Phosphorous 3.4 mg/dL (2.5-4.5); Potassium 4.4 mmol/L (3.3-5.1); Sodium 134 mmol/L (133-145); Triglycerides 74 mg/dL (<150); Uric Acid 5.1 mg/dL (2.5-8.0)
[2025-05-06] MEDS: FUROSEMIDE 40 MG/4 ML VIAL IV ONE (09:45)
[2025-05-06] MEDS: METOLAZONE 2.5 MG TABLET PO ONE (09:45)
[2025-05-06] MEDS: ALBUMIN HUMAN 12.5 GM/50 ML VIAL IV ONE (09:45)
[2025-05-07 07:10] LABS: Basophils # (Auto) 0.01 K/mcL (0.00-0.30); Basophils % (Auto) 0.1 % (0.0-2.0); Eosinophils # (Auto) 0.07 K/mcL (0.00-0.70); Eosinophils % (Auto) 0.6 % (0.0-7.0); Hematocrit 36.3 % (34.1-44.9); Hemoglobin 11.5 g/dL (11.2-15.7); Lymphocytes # (Auto) 1.11 K/mcL (1.50-4.80); Lymphocytes % (Auto) 8.9 % (15.5-49.0); Mean Corpuscular HGB Conc 31.7 g/dL (31.0-36.0); Monocytes # (Auto) 1.32 K/mcL (0.10-0.90); Monocytes % (Auto) 10.6 % (1.0-12.0); Neutrophils % (Auto) 78.0 % (38.0-78.0); Platelet Count 684 K/mcL (140-440); RBC 3.71 M/mcL (3.59-5.38); WBC 12.5 K/mcL (4.5-11.0)
[2025-05-07 08:00] VITALS: TEMP 97.5
[2025-05-07 08:01] LABS: ALT/SGPT 35 U/L (<40); AST/SGOT 63 U/L (<32); Albumin 2.9 gm/dL (3.2-5.2); Albumin/Globulin Ratio 1.3 (1.0-2.3); Alkaline Phosphatase 123 U/L (39-117); Anion Gap 5.0 (8.0-16.0); Bilirubin,Direct 0.3 mg/dL (<0.3); Bilirubin,Total 0.6 mg/dL (0.1-1.0); Blood Urea Nitrogen 20 mg/dL (8-23); Calcium 8.6 mg/dL (8.6-10.4); Carbon Dioxide 47 mmol/L (22-30); Chloride 85 mmol/L (96-108); Globulin 2.2 gm/dL (2.2-3.7); Glucose 151 mg/dL (70-105); Phosphorous 4.0 mg/dL (2.5-4.5); Potassium 3.0 mmol/L (3.3-5.1); Sodium 137 mmol/L (133-145); Triglycerides 67 mg/dL (<150); Uric Acid 5.8 mg/dL (2.5-8.0)
[2025-05-07] MEDS: POTASSIUM CHLORIDE 20 MEQ TABLET PO ONE (09:13)
[2025-05-07] MEDS: acetaZOLAMIDE SOD 500 MG VIAL IV ONE (09:13)
[2025-05-07 14:12] VITALS: O2SAT 89
== END 2025-05-07 10:40 | DRG 189 ==
LOC: ED 22:33 → ICU 05-01 11:30
PROVIDERS: ADMIT Internal Medicine; ATTEND Internal Medicine

== ENCOUNTER 2025-06-04 13:36 | Inpatient (IN) ==
[2025-06-04] MEDS ORDERED: IOPAMIDOL 100 ML BOTTLE IV ONE (13:37)
[2025-06-04] MEDS: IPRATROPIUM/ALBUTEROL 3 ML AMPUL.NEB NEB ONE (14:06)
[2025-06-04 14:21] LABS: INR 1.4 (0.9-1.1); Prothrombin Time 18.3 sec (11.9-14.5)
[2025-06-04 14:28] LABS: Basophils # (Auto) 0.03 K/mcL (0.00-0.30); Basophils % (Auto) 0.2 % (0.0-2.0); Eosinophils # (Auto) 0.02 K/mcL (0.00-0.70); Eosinophils % (Auto) 0.1 % (0.0-7.0); Hematocrit 42.7 % (34.1-44.9); Hemoglobin 13.3 g/dL (11.2-15.7); Lymphocytes # (Auto) 7.36 K/mcL (1.50-4.80); Lymphocytes % (Auto) 53.3 % (15.5-49.0); Mean Corpuscular HGB Conc 31.1 g/dL (31.0-36.0); Monocytes # (Auto) 1.33 K/mcL (0.10-0.90); Monocytes % (Auto) 9.6 % (1.0-12.0); Neutrophils % (Auto) 36.4 % (38.0-78.0); Platelet Count 620 K/mcL (140-440); RBC 4.59 M/mcL (3.59-5.38); WBC 13.8 K/mcL (4.5-11.0)
[2025-06-04] MEDS: cefTRIAXone 2 GM in DEXTROSE 5% IN WATER 50 ML IV ONE (15:18)
[2025-06-04] MEDS: AZITHROMYCIN 500 MG in DEXTROSE 5% IN WATER 250 ML IV ONE (15:19)
[2025-06-04 15:23] LABS: ALT/SGPT 17 U/L (<40); AST/SGOT 42 U/L (<32); Albumin 3.1 gm/dL (3.2-5.2); Albumin/Globulin Ratio 0.9 (1.0-2.3); Alkaline Phosphatase 109 U/L (39-117); Anion Gap 13.0 (8.0-16.0); Bilirubin,Total 0.4 mg/dL (0.1-1.0); Blood Urea Nitrogen 7 mg/dL (8-23); Calcium 9.0 mg/dL (8.6-10.4); Carbon Dioxide 34 mmol/L (22-30); Chloride 92 mmol/L (96-108); Globulin 3.3 gm/dL (2.2-3.7); Glucose 189 mg/dL (70-105); Potassium 3.9 mmol/L (3.3-5.1); Sodium 139 mmol/L (133-145)
[2025-06-04] MEDS: diphenhydrAMINE 50 MG/ML VIAL IV ONE (15:52)
[2025-06-04] MEDS: FUROSEMIDE 40 MG/4 ML VIAL IV ONE (16:47)
[2025-06-04] MEDS ORDERED: ONDANSETRON 4 MG/2 ML VIAL IV PRN (18:08)
[2025-06-04 18:18] LABS: VBG HCO3 35.4 mmol/L (24.0-28.0); VBG PCO2 46.2 mmHg (41.0-51.0); VBG PH 7.50 U (7.32-7.42); VBG PO2 114.0 mmHg (25.0-40.0)
[2025-06-04] MEDS: AZITHROMYCIN 250 MG in DEXTROSE 5% IN WATER 250 ML IV SCH (19:01)
[2025-06-04] MEDS ORDERED: ALBUTEROL SULFATE 60 PUFF INHALER INH PRN (19:15)
[2025-06-04] MEDS: BUDESONIDE 0.5 MG/2 ML AMPUL.NEB NEB SCH (19:23)
[2025-06-04] MEDS: IPRATROPIUM/ALBUTEROL 3 ML AMPUL.NEB NEB SCH (19:23)
[2025-06-04] MEDS: REMDESIVIR 200 MG in 0.9 % SODIUM CHLORIDE 250 ML IV ONE (19:24)
[2025-06-04] MEDS: METHOCARBAMOL 750 MG TABLET PO SCH (20:21)
[2025-06-04] MEDS: morphine 30 MG TAB.SR.12H PO SCH (20:21)
[2025-06-04] MEDS: DILTIAZEM 30 MG TABLET PO SCH (20:21)
[2025-06-04] MEDS: LIDOCAINE 4% TOP PATCH TOPICAL SCH (20:22)
[2025-06-04] MEDS: 0.9 % SODIUM CHLORIDE 10 ML SYRINGE IV SCH (20:22)
[2025-06-04] MEDS: DOCUSATE SODIUM 100 MG CAPSULE PO SCH (20:22)
[2025-06-04] MEDS: morphine 30 MG TAB.SR.12H PO ONE (20:34)
[2025-06-05] MEDS: MOLNUPIRAVIR 200 MG PO SCH (00:16)
[2025-06-05 06:31] LABS: VBG HCO3 39.7 mmol/L (24.0-28.0); VBG PCO2 52.5 mmHg (41.0-51.0); VBG PH 7.50 U (7.32-7.42); VBG PO2 126.6 mmHg (25.0-40.0)
[2025-06-05 06:34] LABS: Basophils # (Auto) 0.01 K/mcL (0.00-0.30); Basophils % (Auto) 0.2 % (0.0-2.0); Eosinophils # (Auto) 0 K/mcL (0.00-0.70); Eosinophils % (Auto) 0 % (0.0-7.0); Hematocrit 40.1 % (34.1-44.9); Hemoglobin 12.6 g/dL (11.2-15.7); Lymphocytes # (Auto) 1.40 K/mcL (1.50-4.80); Lymphocytes % (Auto) 23.9 % (15.5-49.0); Mean Corpuscular HGB Conc 31.4 g/dL (31.0-36.0); Monocytes # (Auto) 0.15 K/mcL (0.10-0.90); Monocytes % (Auto) 2.6 % (1.0-12.0); Neutrophils % (Auto) 73.0 % (38.0-78.0); Platelet Count 626 K/mcL (140-440); RBC 4.39 M/mcL (3.59-5.38); WBC 5.9 K/mcL (4.5-11.0)
[2025-06-05 06:56] LABS: Phosphorous 4.0 mg/dL (2.5-4.5)
[2025-06-05 07:05] LABS: ALT/SGPT 13 U/L (<40); AST/SGOT 30 U/L (<32); Albumin 2.7 gm/dL (3.2-5.2); Albumin/Globulin Ratio 0.8 (1.0-2.3); Alkaline Phosphatase 90 U/L (39-117); Anion Gap 12.0 (8.0-16.0); Bilirubin,Total 0.3 mg/dL (0.1-1.0); Blood Urea Nitrogen 8 mg/dL (8-23); Calcium 9.1 mg/dL (8.6-10.4); Carbon Dioxide 31 mmol/L (22-30); Chloride 92 mmol/L (96-108); Globulin 3.2 gm/dL (2.2-3.7); Glucose 208 mg/dL (70-105); Potassium 4.0 mmol/L (3.3-5.1); Sodium 135 mmol/L (133-145)
[2025-06-05] MEDS: PANTOPRAZOLE 40 MG TABLET PO SCH (08:41)
[2025-06-05] MEDS: MOLNUPIRAVIR 200 MG CAPSULE PO SCH (08:46)
[2025-06-05] MEDS: FUROSEMIDE 40 MG/4 ML VIAL IV SCH (08:46)
[2025-06-05] MEDS: HYDROcodone/APAP 10/325MG TABLET PO PRN (09:17)
[2025-06-05] MEDS: SPIRONOLACTONE 25 MG TABLET PO SCH (09:18)
[2025-06-05] MEDS: SENNOSIDES 1 TABLET PO SCH (09:18)
[2025-06-05] MEDS: guaiFENesin 600 MG TAB.SR.12H PO SCH (09:18)
[2025-06-05] MEDS: DEXAMETHASONE 4 MG TABLET PO SCH (09:18)
[2025-06-05] MEDS: MULTIVIT,THER IRON,CA,FA & MIN 1 TABLET PO SCH (09:18)
[2025-06-05] MEDS: POTASSIUM CHLORIDE 20 MEQ TABLET PO SCH (09:18)
[2025-06-05] MEDS: POLYETHYLENE GLYCOL 3350 17 GM PACKET PO SCH (09:19)
[2025-06-05] MEDS: Fluticasone-Umeclidin-Vilanter [Trelegy Ellipta] INH SCH (09:19)
[2025-06-05] MEDS: LISINOPRIL 5 MG TABLET PO SCH (09:23)
[2025-06-05] MEDS: AZITHROMYCIN 250 MG in DEXTROSE 5% IN WATER 250 ML IV SCH (09:23)
[2025-06-05] MEDS: LIDOCAINE 4% TOP PATCH TOPICAL SCH (10:54)
[2025-06-05] MEDS: CALCIUM CARBONATE 500 MG TAB.CHEW PO SCH (10:54)
[2025-06-05] MEDS ORDERED: DIAZEPAM 10 MG/2 ML SYRINGE IV PRN (11:37)
[2025-06-05] MEDS: METHOCARBAMOL 750 MG TABLET PO PRN (11:55)
[2025-06-05] MEDS ORDERED: FLEETS ADULT 1 DOSE ENEMA PR PRN (13:00)
[2025-06-05] MEDS ORDERED: DEXTROSE 50% 50 ML VIAL IV PRN (13:00)
[2025-06-05] MEDS ORDERED: DEXTROSE 31 GM ORAL.SUSP PO PRN (13:00)
[2025-06-05] MEDS: IPRATROPIUM/ALBUTEROL 3 ML AMPUL.NEB NEB SCH (13:15)
[2025-06-05] MEDS: REMDESIVIR 100 MG in 0.9 % SODIUM CHLORIDE 250 ML IV SCH (17:30)
[2025-06-05] MEDS: RIVAROXABAN 20 MG TABLET PO SCH (17:30)
[2025-06-05] MEDS: INSULIN LISPRO 1 UNIT/0.01 ML UNIT SQ SCH (17:59)
[2025-06-06] MEDS: DEXAMETHASONE 4 MG TABLET PO SCH (08:35)
[2025-06-06 10:07] LABS: ALT/SGPT 13 U/L (<40); AST/SGOT 26 U/L (<32); Albumin 3.1 gm/dL (3.2-5.2); Albumin/Globulin Ratio 1.0 (1.0-2.3); Alkaline Phosphatase 92 U/L (39-117); Anion Gap 10.0 (8.0-16.0); Bilirubin,Direct < 0.2 mg/dL (0-0.3); Bilirubin,Total 0.4 mg/dL (0.1-1.0); Blood Urea Nitrogen 17 mg/dL (8-23); Calcium 9.5 mg/dL (8.6-10.4); Carbon Dioxide 33 mmol/L (22-30); Chloride 92 mmol/L (96-108); Globulin 3.1 gm/dL (2.2-3.7); Glucose 162 mg/dL (70-105); Phosphorous 4.0 mg/dL (2.5-4.5); Potassium 4.6 mmol/L (3.3-5.1); Sodium 135 mmol/L (133-145); Triglycerides 49 mg/dL (<150); Uric Acid 6.9 mg/dL (2.5-8.0)
[2025-06-06] MEDS: IPRATROPIUM/ALBUTEROL 3 ML AMPUL.NEB NEB PRN (10:35)
[2025-06-06] MEDS: acetaZOLAMIDE SOD 500 MG VIAL IV SCH (11:45)
[2025-06-06] MEDS: ALBUMIN HUMAN 12.5 GM/50 ML VIAL IV SCH (16:26)
[2025-06-06] MEDS: ACETAMINOPHEN 325 MG TABLET PO PRN (16:27)
[2025-06-06] MEDS: MELATONIN 3 MG TABLET PO SCH (21:08)
[2025-06-07 06:48] LABS: ALT/SGPT 7 U/L (<40); AST/SGOT 23 U/L (<32); Albumin 3.0 gm/dL (3.2-5.2); Albumin/Globulin Ratio 1.1 (1.0-2.3); Alkaline Phosphatase 82 U/L (39-117); Anion Gap 12.0 (8.0-16.0); Bilirubin,Direct < 0.2 mg/dL (0-0.3); Bilirubin,Total 0.3 mg/dL (0.1-1.0); Blood Urea Nitrogen 23 mg/dL (8-23); Calcium 9.2 mg/dL (8.6-10.4); Carbon Dioxide 30 mmol/L (22-30); Chloride 93 mmol/L (96-108); Globulin 2.7 gm/dL (2.2-3.7); Glucose 221 mg/dL (70-105); Phosphorous 4.7 mg/dL (2.5-4.5); Potassium 4.0 mmol/L (3.3-5.1); Sodium 135 mmol/L (133-145); Triglycerides 44 mg/dL (<150); Uric Acid 7.2 mg/dL (2.5-8.0)
[2025-06-07] MEDS ORDERED: METOPROLOL TARTRATE 5 MG/5 ML VIAL IV PRN (07:44)
[2025-06-07] MEDS ORDERED: BISACODYL 10 MG SUPP.RECT PR PRN (16:13)
[2025-06-07] MEDS: DILTIAZEM 30 MG TABLET PO SCH (17:24)
[2025-06-08 06:13] LABS: Basophils # (Auto) 0 K/mcL (0.00-0.30); Basophils % (Auto) 0 % (0.0-2.0); Eosinophils # (Auto) 0 K/mcL (0.00-0.70); Eosinophils % (Auto) 0 % (0.0-7.0); Hematocrit 39.3 % (34.1-44.9); Hemoglobin 12.2 g/dL (11.2-15.7); Lymphocytes # (Auto) 1.89 K/mcL (1.50-4.80); Lymphocytes % (Auto) 19.6 % (15.5-49.0); Mean Corpuscular HGB Conc 31.0 g/dL (31.0-36.0); Monocytes # (Auto) 0.89 K/mcL (0.10-0.90); Monocytes % (Auto) 9.2 % (1.0-12.0); Neutrophils % (Auto) 70.8 % (38.0-78.0); Platelet Count 575 K/mcL (140-440); RBC 4.27 M/mcL (3.59-5.38); WBC 9.6 K/mcL (4.5-11.0)
[2025-06-08 07:22] LABS: ALT/SGPT 12 U/L (<40); AST/SGOT 27 U/L (<32); Albumin 2.9 gm/dL (3.2-5.2); Albumin/Globulin Ratio 1.0 (1.0-2.3); Alkaline Phosphatase 86 U/L (39-117); Anion Gap 9.0 (8.0-16.0); Bilirubin,Direct < 0.2 mg/dL (0-0.3); Bilirubin,Total 0.3 mg/dL (0.1-1.0); Blood Urea Nitrogen 22 mg/dL (8-23); Calcium 9.0 mg/dL (8.6-10.4); Carbon Dioxide 31 mmol/L (22-30); Chloride 97 mmol/L (96-108); Globulin 2.8 gm/dL (2.2-3.7); Glucose 184 mg/dL (70-105); Phosphorous 3.1 mg/dL (2.5-4.5); Potassium 4.1 mmol/L (3.3-5.1); Sodium 137 mmol/L (133-145); Triglycerides 40 mg/dL (<150); Uric Acid 6.8 mg/dL (2.5-8.0)
[2025-06-08] MEDS: BISACODYL 5 MG TABLET PO PRN (10:57)
[2025-06-08] MEDS: DILTIAZEM 120 MG CAP.XL.24H PO SCH (10:58)
[2025-06-09 08:23] VITALS: TEMP 97
[2025-06-09 12:39] VITALS: O2SAT 88
== END 2025-06-09 11:10 | DRG 189 ==
LOC: ED 13:36 → ICU 18:03
PROVIDERS: ADMIT Internal Medicine; ATTEND Internal Medicine